=== PATIENT | female | born 1985 | race Caucasian/White ===

== ENCOUNTER 2017-01-09 09:30 | Emergency (ER) | payer MEDICARE ==
[2017-01-09 09:52] VITALS: PULSE 88; O2SAT 96
--- NOTE | 2017-01-09 10:26 | ERPHSYRPT ---
- History of Present Illness Time Seen by Provider: 01/09/17 10:17 Source: patient, family Exam Limitations: no limitations Patient Subjective Stated Complaint: DEVELOPED RED RAISED AREA UNDER LEFT ARM THREE DAYS AGO. NOW HAVING A FEVER AND PAIN WITH IT. ALSO HAVING VOMITING THIS AM. Triage Nursing Assessment: AMBULATED TO ROOM PER SELF WITHOUT DIFFICULTY. SKIN W/D, COLOR NORMAL. HAS 4-5CM RED RAISED AREA TO LEFT AXILLA. PATIENT UNABLE TO LIFT ARM COMPLETELY DUE TO PAIN. PATIENT CRYING AT TIMES. Physician History: The patient is a 32-year-old female with her complaining of pain and swelling under her left armpit that began 3 days ago. She had a fever yesterday of 102. She is also beginning to vomit. She vomited one chest today and multiple times this morning. She has a past medical history of sarcoidosis , type 1 diabetes, asthma, hepatitis, cholecystectomy, and hysterectomy. Timing/Duration: day(s) (3) Severity: severe Modifying Factors: Improves With: movement Associated Symptoms: nausea, vomiting, fever Allergies/Adverse Reactions: morphine Allergy (Intermediate, Verified 01/09/17 09:46) Stomach Pain meperidine HCl [From Demerol] Allergy (Mild, Verified 01/09/17 09:46) Hives Penicillins Allergy (Mild, Verified 01/09/17 09:46) Rash propoxyphene napsylate [From Darvocet-N 100] Allergy (Mild, Verified 01/09/17 09 :46) Hives diphenhydramine [From Benadryl] Allergy (Verified 01/09/17 09:46) levofloxacin [From Levaquin] Allergy (Verified 01/09/17 09:46) IMMUNE TO IT ondansetron HCl [From Zofran] Adverse Reaction (Intermediate, Verified 01/09/17 09:46) Nausea and Vomiting sulfamethoxazole [From Bactrim] Adverse Reaction (Verified 01/09/17 09:46) trimethoprim [From Bactrim] Adverse Reaction (Verified 01/09/17 09:46) Home Medications: Promethazine HCl 25 mg PO Q6HPRN PRN 03/22/14 [History] Subcutaneous Insulin Pump [Insulin Pump] 1 each MC UD 03/22/14 [History] Pregabalin [Lyrica 100Mg] 100 mg PO HS 12/23/15 [History] Atorvastatin Calcium [Lipitor] 80 mg PO DAILY 01/09/17 [History] Diltiazem HCl [Cartia Xt] 240 mg PO DAILY 01/09/17 [History] Metoprolol Tartrate 37.5 mg PO BID 01/09/17 [History] Ticagrelor [Brilinta] 90 mg PO BID 01/09/17 [History] Hx Tetanus, Diphtheria Vaccination/Date Given: Yes Hx Influenza Vaccination/Date Given: No Hx Pneumococcal Vaccination/Date Given: No - Review of Systems Constitutional: Fever Eyes: No Symptoms Ears, Nose, & Throat: No Symptoms Respiratory: No Symptoms Cardiac: No Chest Pain, No Edema, No Syncope Abdominal/Gastrointestinal: Nausea, Vomiting Genitourinary Symptoms: No Dysuria Musculoskeletal: No Back Pain, No Neck Pain Skin: Rash, Other (abscess under left arm pit) Neurological: No Dizziness, No Focal Weakness, No Sensory Changes Psychological: No Symptoms Endocrine: No Symptoms Hematologic/Lymphatic: No Symptoms Immunological/Allergic: No Symptoms All Other Systems: Reviewed and Negative - Past Medical History Pertinent Past Medical History: Yes Neurological History: No Pertinent History ENT History: No Pertinent History Cardiac History: Congestive Heart Failure, Myocardial Infarction ([place]) Respiratory History: CHF, Pulmonary Embolism, Other Endocrine Medical History: No Pertinent History Musculoskeletal History: No Pertinent History GI Medical History: No Pertinent History History: No Pertinent History Psycho-Social History: No Pertinent History Female Reproductive Disorders: No Pertinent History Other Medical History: Sarcoidosis - Past Surgical History Past Surgical History: Yes Neuro Surgical History: No Pertinent History Cardiac: Cardiac Catheterization Respiratory: Other Gastrointestinal: Cholecystectomy, Other Genitourinary: No Pertinent History Musculoskeletal: No Pertinent History Female Surgical History: Hysterectomy, Section Other Surgical History: LYMP NODE AND LUNG BIOPSY,PORT, liver biopsy, R TUBE REMOVED,insulin pump - Social History Smoking Status: Current every day smoker How long have you smoked: 1 Exposure to second hand smoke: No Alcohol Use: None Drug Use: none Patient Lives Alone: No Significant Family History: no pertinent family hx - Female History Hx Now: No - Nursing Vital Signs Nursing Vital Signs: Initial Vital Signs Temperature 98.5 F Temperature Source Oral Pulse Rate 88 Respiratory Rate 18 Blood Pressure [Right Arm] 106/56 Pain Intensity 4 - Physical Exam General Appearance: moderate distress Eye Exam: PERRL/EOMI, eyes nml inspection Ears, Nose, Throat Exam: normal ENT inspection, TMs normal, pharynx normal, moist mucous membranes Neck Exam: normal inspection, non-tender, supple, full range of motion Respiratory Exam: normal breath sounds, lungs clear, No respiratory distress Cardiovascular Exam: regular rate/rhythm, normal heart sounds, normal peripheral pulses Gastrointestinal/Abdomen Exam: tenderness Pelvic Exam: not done Rectal Exam: not done Back Exam: normal inspection, normal range of motion, No CVA tenderness, No vertebral tenderness Extremity Exam: normal inspection, normal range of motion, pelvis stable Neurologic Exam: alert, oriented x 3, cooperative, normal mood/affect, nml cerebellar function, nml station & gait, sensation nml, No motor deficits Skin Exam: rash, other (Examination of the left axilla reveals multiple abscesses, swelling, redness, and tenderness.) Lymphatic Exam: No adenopathy SpO2 Interpretation: normal SpO2: 96 Oxygen Delivery: Room Air Ordered Tests: Active Orders 24 hr Category Date Time Status IV Insertion STAT Care 01/09/17 11:02 Active OBSTR/ACUTE ABDOMEN SERIES Stat Exams 01/09/17 10:31 Taken CBC W DIFF Stat Lab 01/09/17 10:57 Completed CMP Stat Lab 01/09/17 10:57 Completed Lactic Acid Stat Lab 01/09/17 10:50 Completed UA W/RFX UR CULTURE Stat Lab 01/09/17 10:31 Completed Medication Summary Generic Name Dose Route Start Last Admin Trade Name Freq PRN Reason Stop Dose Admin Hydromorphone HCl 1 mg 01/09/17 14:57 Hydromorphone 1 Mg/Ml Ampule IV 01/09/17 14:58 STAT ONE Discontinued Medications Generic Name Dose Route Start Last Admin Trade Name Freq PRN Reason Stop Dose Admin Hydromorphone HCl 1 mg 01/09/17 10:31 01/09/17 10:56 Hydromorphone 1 Mg/Ml Ampule IV 01/09/17 10:32 1 mg STAT ONE Administration Hydromorphone HCl Confirm 01/09/17 10:51 Hydromorphone 1 Mg/Ml Ampule Administered 01/09/17 10:52 Dose 1 mg .ROUTE .STK-MED ONE Hydromorphone HCl 1 mg 01/09/17 12:56 01/09/17 13:26 Hydromorphone 1 Mg/Ml Ampule IV 01/09/17 12:57 1 mg STAT ONE Administration Hydromorphone HCl Confirm 01/09/17 13:21 Hydromorphone 1 Mg/Ml Ampule Administered 01/09/17 13:22 Dose 1 mg .ROUTE .STK-MED ONE Sodium Chloride 1,000 mls @ 999 mls/hr 01/09/17 10:31 01/09/17 10:56 Sodium Chloride 0.9% 1000 Ml IV 01/09/17 11:31 999 mls/hr .Q1H1M STA Administration Sodium Chloride Confirm 01/09/17 10:51 Sodium Chloride 0.9% 1000 Ml Administered 01/09/17 10:52 Dose 1,000 mls @ ud .ROUTE .STK-MED ONE Ceftriaxone Sodium/Dextrose 1 g in 50 mls @ 100 mls/hr 01/09/17 12:56 13:25 Rocephin 1 Gm-D5w 50 Ml Bag IV 01/09/17 13:25 100 mls/hr STAT ONE Administration Ceftriaxone Sodium/Dextrose Confirm 01/09/17 13:21 Rocephin 1 Gm-D5w 50 Ml Bag Administered 01/09/17 13:22 Dose 1 g in 50 mls @ ud IV .STK-MED ONE Lidocaine HCl 10 ml 01/09/17 14:26 01/09/17 14:46 Xylocaine 1% Hcl 20 Ml Mdv IJ 01/09/17 14:27 10 ml STAT ONE Administration Lidocaine HCl Confirm 01/09/17 14:29 Xylocaine 1% Hcl 20 Ml Mdv Administered 01/09/17 14:30 Dose 1 ml .ROUTE .STK-MED ONE Promethazine HCl 12.5 mg 01/09/17 10:31 01/09/17 10:56 Phenergan 25 Mg Inj IV 01/09/17 10:32 12.5 mg STAT ONE Administration Promethazine HCl Confirm 01/09/17 10:51 Phenergan 25 Mg Inj Administered 01/09/17 10:52 Dose 25 mg .ROUTE .STK-MED ONE Lab/Rad Data: Laboratory Result Diagrams 01/09/17 10:57 01/09/17 10:57 Laboratory Results 01/09/17 01/09/17 01/09/17 Range/Units 10:57 10:57 10:50 WBC 9.4 (4.0-10.5) K/mm3 RBC 4.51 (4.1-5.4) M/mm3 Hgb 12.8 (12.0-16.0) gm/dl Hct 38.6 (35-47) % MCV 85.6 (78-100) fl MCH 28.4 (26-32) pg MCHC 33.2 (32-36) g/dl RDW 13.1 (11.5-14.0) % Plt Count 238 (150-450) K/mm3 MPV 11.5 H (6-9.5) fl Gran % 63.1 (36.0-66.0) % Lymphocytes % 25.9 (24.0-44.0) % Monocytes % 8.6 (0.0-12.0) % Eosinophils % 2.2 (0.00-5.0) % Basophils % 0.2 (0.0-0.4) % Basophils # 0.02 (0-0.4) Sodium 141 (136-145) mEq/L Potassium 3.7 (3.5-5.1) mEq/L Chloride 105 (98-107) mEq/L Carbon Dioxide 28.0 (21-32) mEq/L Anion Gap 11.5 (5-15) MEQ/L BUN 12 (9-20) mg/dL Creatinine 0.98 (0.55-1.30) mg/dl Estimated GFR > 60 ML/MIN Glucose 223 H (70-110) MG/DL Lactic Acid 1.0 (0.4-2.0) Calcium 9.1 (8.5-10.1) mg/dL Total Bilirubin 0.50 (0.2-1.0) mg/dL AST 42 H (15-37) U/L ALT 77 (12-78) U/L Alkaline Phosphatase 221 H (46-116) U/L Serum Total Protein 6.9 (6.4-8.2) gm/dL Albumin 3.1 L (3.4-5.0) g/dL Ur Collection Type Urine Color (YELLOW) Urine Appearance (CLEAR) Urine pH (5-6) Ur Specific [place] (1.005-1.025) Urine Protein (Negative) Urine Glucose (UA) (NEGATIVE) mg/dL Urine Ketones (NEGATIVE) Urine Nitrite (NEGATIVE) Urine Bilirubin (NEGATIVE) Urine Urobilinogen (0-1) mg/dL Urine WBC (Auto) (NEGATIVE) Urine RBC (Auto) (0-5) Zain/ul Specimen Received 01/09/17 Range/Units 10:31 WBC (4.0-10.5) K/mm3 RBC (4.1-5.4) M/mm3 Hgb (12.0-16.0) gm/dl Hct (35-47) % MCV (78-100) fl MCH (26-32) pg MCHC (32-36) g/dl RDW (11.5-14.0) % Plt Count (150-450) K/mm3 MPV (6-9.5) fl Gran % (36.0-66.0) % Lymphocytes % (24.0-44.0) % Monocytes % (0.0-12.0) % Eosinophils % (0.00-5.0) % Basophils % (0.0-0.4) % Basophils # (0-0.4) Sodium (136-145) mEq/L Potassium (3.5-5.1) mEq/L Chloride (98-107) mEq/L Carbon Dioxide (21-32) mEq/L Anion Gap (5-15) MEQ/L BUN (9-20) mg/dL Creatinine (0.55-1.30) mg/dl Estimated GFR ML/MIN Glucose (70-110) MG/DL Lactic Acid (0.4-2.0) Calcium (8.5-10.1) mg/dL Total Bilirubin (0.2-1.0) mg/dL AST (15-37) U/L ALT (12-78) U/L Alkaline Phosphatase (46-116) U/L Serum Total Protein (6.4-8.2) gm/dL Albumin (3.4-5.0) g/dL Ur Collection Type CLEAN CATCH Urine Color YELLOW (YELLOW) Urine Appearance CLEAR (CLEAR) Urine pH 5.5 (5-6) Ur Specific [place] 1.025 (1.005-1.025) Urine Protein NEGATIVE (Negative) Urine Glucose (UA) 500 (NEGATIVE) mg/dL Urine Ketones SMALL-15 (NEGATIVE) Urine Nitrite NEGATIVE (NEGATIVE) Urine Bilirubin SMALL (NEGATIVE) Urine Urobilinogen 1 (0-1) mg/dL Urine WBC (Auto) NEGATIVE (NEGATIVE) Urine RBC (Auto) NEGATIVE (0-5) Zain/ul Specimen Received 0527 1030 - Progress Progress: improved Progress Note: 01/09/17 12:55 The patient was given Phenergan 25 mg and Dilaudid 1 mg by IV and is now feeling better. I discussed the possibility of incision and drainage of her abscess in her left armpit. The patient would like it drained today. We will start her also on Rocephin in the ER. 01/09/17 14:58 An attempt was made to incise and drain the abscess. The axilla was swabbed with Betadine and then 10 mL of lidocaine injected into the area. An 11 blade scalpel was used for incision. Minimal amounts of purulent material were expressed and cultured. The wound was very indurated. No pocket of purulent material was identified. The patient tolerated the procedure well. Patient was given another 1 mg of Dilaudid IV. This totals 3 mg of Dilaudid IV while the patient has been in the ER. Counseled pt/family regarding: lab results, diagnosis - Departure Time of Disposition: 15:00 Departure Disposition: Home Clinical Impression: Hidradenitis suppurativa Condition: Stable Critical Care Time: No Additional Instructions: You have a bacterial infection in the tissues of your left arm pit. You were given Dilaudid 1 mg by IV 3 times in the ER as well as Rocephin 1 g by IV. A wound culture was obtained from the material expressed from the incision and drainage. You may take the oxycodone you have at home and use as directed. Take doxycycline 100 mg twice a day for 10 days and prednisone 60 mg a day for 5 days. Follow up next week. Prescriptions: Doxycycline Hyclate [Vibramycin] 1 cap PO BID #20 capsule Prednisone 10 mg [Deltasone 10 mg] 60 mg PO UD #30 tablet
[2017-01-09] MEDS ORDERED: Sodium Chloride 0.9% 1000 ML 1,000 ML IV STA (10:31)
[2017-01-09] MEDS ORDERED: Hydromorphone 1 mg/ml Ampule IV ONE ×3 (10:31→14:57)
[2017-01-09] MEDS ORDERED: Phenergan 25 MG INJ IV ONE (10:31)
[2017-01-09] MEDS ORDERED: Sodium Chloride 0.9% 1000 ML 1,000 ML ONE (10:51)
[2017-01-09] MEDS ORDERED: Phenergan 25 MG INJ ONE (10:51)
[2017-01-09] MEDS ORDERED: Hydromorphone 1 mg/ml Ampule ONE ×3 (10:51→15:01)
[2017-01-09 11:09] LABS: ADD URINE CULTURE? NO (NO); COMPLETE URINE MICROSCOPIC? NO; Collection Type CLEAN CATCH; Ph 5.5 (5-6)
[2017-01-09 11:17] LABS: BASOPHIL % 0.2 % (0.0-0.4); Eosinophil % 2.2 % (0.00-5.0); Granulocytes % 63.1 % (36.0-66.0); Lymphocytes % 25.9 % (24.0-44.0); Mean Cell Volume 85.6 fl (78-100); Mean Corpuscular Hemoglobin 28.4 pg (26-32); Mean Platelet Volume 11.5 fl (6-9.5); Monocytes % 8.6 % (0.0-12.0); Platelet Count 238 K/mm3 (150-450); Red Blood Count 4.51 M/mm3 (4.1-5.4); Red Cell Distribution Width 13.1 % (11.5-14.0); White Blood Count 9.4 K/mm3 (4.0-10.5)
[2017-01-09 11:57] LABS: ALBUMIN 3.1 g/dL (3.4-5.0); ALKALINE PHOSPHATASE 221 U/L (46-116); ANION GAP 11.5 MEQ/L (5-15); BLOOD UREA NITROGEN 12 mg/dL (9-20); CHLORIDE 105 mEq/L (98-107); Glucose 223 MG/DL (70-110); Potassium 3.7 mEq/L (3.5-5.1); SGOT/AST 42 U/L (15-37); SGPT/ALT 77 U/L (12-78); SODIUM 141 mEq/L (136-145); Total Protein 6.9 gm/dL (6.4-8.2)
[2017-01-09] MEDS ORDERED: ROCEPHIN 1 Gm-D5w 50 ml Bag** 1 G/50 ML IVPB IV ONE ×2 (12:56→13:21)
[2017-01-09] MEDS ORDERED: XYLOCAINE 1% HCL 20 ML MDV IJ ONE (14:26)
[2017-01-09] MEDS ORDERED: XYLOCAINE 1% HCL 20 ML MDV ONE (14:29)
[2017-01-09 15:09] VITALS: BP 98/52
--- NOTE | 2017-01-09 20:55 | XRAY ---
Indication: Pain. Comparison: Chest July 25, 2016. 2 views of the abdomen demonstrates moderate diffuse scattered colonic fecal debris without obstruction and scattered surgical clips. Remaining solid organs and osseous structures unremarkable. Single frontal chest again demonstrate normal heart, lungs, and bony thorax with left-sided Port-A-Cath. Impression: Fecal stasis without obstruction. Stable nonacute 1 view chest.
== END 2017-01-09 15:09 | disposition home or self-care (01) ==
LOC: ED 09:30
PROC: 0H9CXZZ Drainage of Left Upper Arm Skin, External Approach (ICD-10-PCS; principal; 2017-01-09)
DX: L73.2 Hidradenitis suppurativa (principal)
CPT/HCPCS: 10060; 36000; 36415; 74022; 80053; 81002; 83605; 85025; 87070; 87077; 87186; 96360; 96361; 96365; 96374; 96375; 96376; 99284; J0696; J1170; J1642; J2550

== ENCOUNTER 2017-04-20 22:02 | Observation (INO) | payer MEDICARE ==
[2017-04-20] MEDS ORDERED: Sodium Chloride 0.9% 1000 ML 1,000 ML IV STA (23:06)
--- NOTE | 2017-04-20 23:09 | ERPHSYRPT ---
- History of Present Illness Time Seen by Provider: 04/20/17 22:59 Source: patient Exam Limitations: no limitations Patient Subjective Stated Complaint: "my pump started malfunctioning tonight. i kept trying to get it to work. i tried to change everything out, but it started beeping again. my blood sugar was over [address]. [address] Jefferson and she told me to come to the ED and she would admit me." Triage Nursing Assessment: aox3, breathing easy unlabored, skin pink warm dry, steady gait, BS 518 Physician History: PT'S INSULIN PUMP MALFUNCTIONED TONIGHT ABOUT 4.5 HOURS AGO AND SINCE PT HAS HAD UPPER ANTERIOR CHEST PAIN WITH VOMITING X1. PT DENIES SHORTNESS OF AIR, FEVER, ABDOMINAL PAIN. Allergies/Adverse Reactions: morphine Allergy (Intermediate, Verified 04/20/17 22:35) Stomach Pain meperidine HCl [From Demerol] Allergy (Mild, Verified 04/20/17 22:35) Hives Penicillins Allergy (Mild, Verified 04/20/17 22:35) Rash propoxyphene napsylate [From Darvocet-N 100] Allergy (Mild, Verified 04/20/17 22 :35) Hives diphenhydramine [From Benadryl] Allergy (Verified 04/20/17 22:35) levofloxacin [From Levaquin] Allergy (Verified 04/20/17 22:35) IMMUNE TO IT ondansetron HCl [From Zofran] Adverse Reaction (Intermediate, Verified 04/20/17 22:35) Nausea and Vomiting sulfamethoxazole [From Bactrim] Adverse Reaction (Verified 04/20/17 22:35) trimethoprim [From Bactrim] Adverse Reaction (Verified 04/20/17 22:35) Home Medications: Promethazine HCl 25 mg PO Q6HPRN PRN 03/22/14 [History] Subcutaneous Insulin Pump [Insulin Pump] 1 each MC UD 03/22/14 [History] Pregabalin [Lyrica 100Mg] 100 mg PO HS 12/23/15 [History] Atorvastatin Calcium [Lipitor] 80 mg PO DAILY 01/09/17 [History] Diltiazem HCl [Cartia Xt] 240 mg PO DAILY 01/09/17 [History] Metoprolol Tartrate 37.5 mg PO BID 01/09/17 [History] Ticagrelor [Brilinta] 90 mg PO BID 01/09/17 [History] Hx Tetanus, Diphtheria Vaccination/Date Given: Yes Hx Influenza Vaccination/Date Given: No Hx Pneumococcal Vaccination/Date Given: No - Review of Systems Cardiac: Chest Pain Abdominal/Gastrointestinal: Vomiting All Other Systems: Reviewed and Negative - Past Medical History Pertinent Past Medical History: Yes Neurological History: No Pertinent History ENT History: No Pertinent History Cardiac History: Congestive Heart Failure, Myocardial Infarction ([place]) Respiratory History: CHF, Pulmonary Embolism, Other Endocrine Medical History: Diabetes Type I Musculoskeletal History: No Pertinent History GI Medical History: No Pertinent History History: No Pertinent History Psycho-Social History: No Pertinent History Female Reproductive Disorders: No Pertinent History Other Medical History: Sarcoidosis - Past Surgical History Past Surgical History: Yes Neuro Surgical History: No Pertinent History Cardiac: Cardiac Catheterization Respiratory: Other Gastrointestinal: Cholecystectomy, Other Genitourinary: No Pertinent History Musculoskeletal: No Pertinent History Female Surgical History: Hysterectomy, Section Other Surgical History: LYMP NODE AND LUNG BIOPSY,PORT, liver biopsy, R TUBE REMOVED,insulin pump, hysterecomy - Social History Smoking Status: Former smoker How long have you smoked: 1 Exposure to second hand smoke: No Alcohol Use: None Drug Use: none Patient Lives Alone: No Significant Family History: no pertinent family hx - Female History Hx Last Menstrual Period: hyster Hx Now: No - Nursing Vital Signs Nursing Vital Signs: Initial Vital Signs Temperature 97.7 F 04/20/17 22:28 Pulse Rate 88 04/20/17 22:28 Respiratory Rate 14 04/20/17 22:28 Blood Pressure 118/82 04/20/17 22:28 O2 Sat by Pulse Oximetry 97 04/20/17 22:28 Pain Scale Pain Intensity 6 - Physical Exam General Appearance: alert Eye Exam: PERRL/EOMI Ears, Nose, Throat Exam: pharynx normal, moist mucous membranes Neck Exam: normal inspection Respiratory Exam: lungs clear Cardiovascular Exam: normal heart sounds Gastrointestinal/Abdomen Exam: soft, normal bowel sounds Back Exam: normal range of motion Extremity Exam: normal inspection, No pedal edema Neurologic Exam: alert, cooperative Skin Exam: warm, dry SpO2 Interpretation: normal SpO2: 97 Oxygen Delivery: Room Air - Course Nursing assessment & vital signs reviewed: Yes EKG Interpreted by Me: RATE (91), Sinus Rhythm, NORMAL AXIS, NORMAL INTERVALS - Radiology Exams Chest X-ray Interpretation: Interpreted by me, No Pneumonia Ordered Tests: Active Orders 24 hr Category Date Time Status ACCUCHECK [Accucheck] STAT Care 04/20/17 23:[address] Administrative Engineer STAT Care 04/20/17 23:08 Active EKG-ER Only STAT Care 04/20/17 23:07 Active IV Insertion STAT Care 04/20/17 23:06 Active CHEST 1 VIEW (PORTABLE) Stat Exams 04/20/17 23:08 Taken AMYLASE Stat Lab 04/20/17 23:25 Completed CBC W DIFF Stat Lab 04/20/17 23:25 Completed CMP Stat Lab 04/20/17 23:25 Completed HCG QUALITATIVE,SERUM Stat Lab 04/20/17 23:25 Completed LIPASE Stat Lab 04/20/17 23:25 Completed MAGNESIUM Stat Lab 04/20/17 23:25 Completed TROPONIN Q3H Lab 04/20/17 23:25 Completed TROPONIN Q3H Lab 04/21/17 02:15 Ordered TROPONIN Q3H Lab 04/21/17 05:15 Ordered TROPONIN Q3H Lab 04/21/17 08:15 Ordered TROPONIN Q3H Lab 04/21/17 11:15 Ordered UA W/RFX UR CULTURE Stat Lab 04/20/17 23:20 Completed Medication Summary Discontinued Medications Generic Name Dose Route Start Last Admin Trade Name Freq PRN Reason Stop Dose Admin Hydromorphone HCl 1 mg 04/20/17 23:49 04/21/17 00:00 Hydromorphone 1 Mg/Ml Ampule IV 04/20/17 23:50 1 mg STAT ONE Administration Hydromorphone HCl Confirm 04/20/17 23:55 Hydromorphone 1 Mg/Ml Ampule Administered 04/20/17 23:56 Dose 1 mg .ROUTE .STK-MED ONE Sodium Chloride 1,000 mls @ 999 mls/hr 04/20/17 23:06 04/20/17 23:30 Sodium Chloride 0.9% 1000 Ml IV 04/21/17 00:06 999 mls/hr .Q1H1M STA Administration Sodium Chloride Confirm 04/20/17 23:29 Sodium Chloride 0.9% 1000 Ml Administered 04/20/17 23:30 Dose 1,000 mls @ ud .ROUTE .STK-MED ONE Insulin Human Regular 10 unit 04/21/17 00:47 04/21/17 00:55 Novolin R IV 04/21/17 00:48 10 unit STAT ONE Administration Insulin Human Regular Confirm 04/21/17 00:52 Novolin R Administered 04/21/17 00:53 Dose 1 unit .ROUTE .STK-MED ONE Insulin Human Regular Confirm 04/21/17 00:54 Novolin R Administered 04/21/17 00:55 Dose 1 unit .ROUTE .STK-MED ONE Promethazine HCl 12.5 mg 04/20/17 23:49 04/21/17 00:00 Phenergan 25 Mg Inj IV 04/20/17 23:50 12.5 mg STAT ONE Administration Promethazine HCl Confirm 04/20/17 23:55 Phenergan 25 Mg Inj Administered 04/20/17 23:56 Dose 25 mg .ROUTE .STK-MED ONE Lab/Rad Data: Laboratory Result Diagrams 04/20/17 23:25 04/20/17 23:25 Laboratory Results 04/20/17 04/20/17 04/20/17 Range/Units 23:25 23:25 23:25 WBC (4.0-10.5) K/mm3 RBC (4.1-5.4) M/mm3 Hgb (12.0-16.0) gm/dl Hct (35-47) % MCV (78-100) fl MCH (26-32) pg MCHC (32-36) g/dl RDW (11.5-14.0) % Plt Count (150-450) K/mm3 MPV (6-9.5) fl Gran % (36.0-66.0) % Lymphocytes % (24.0-44.0) % Monocytes % (0.0-12.0) % Eosinophils % (0.00-5.0) % Basophils % (0.0-0.4) % Basophils # (0-0.4) Sodium (136-145) mEq/L Potassium (3.5-5.1) mEq/L Chloride (98-107) mEq/L Carbon Dioxide (21-32) mEq/L Anion Gap (5-15) MEQ/L BUN (9-20) mg/dL Creatinine (0.55-1.30) mg/dl Estimated GFR ML/MIN Glucose (70-110) MG/DL Calcium (8.5-10.1) mg/dL Magnesium (1.8-2.4) mg/dL Total Bilirubin (0.2-1.0) mg/dL AST (15-37) U/L ALT (12-78) U/L Alkaline Phosphatase (46-116) U/L Troponin I < 0.017 (0.000-0.056) ng/ml Serum Total Protein (6.4-8.2) gm/dL Albumin (3.4-5.0) g/dL Amylase 26 (25-115) U/L Lipase 110 (73-393) U/L Serum , Qual NEGATIVE (Negative) Ur Collection Type Urine Color (YELLOW) Urine Appearance (CLEAR) Urine pH (5-6) Ur Specific [place] (1.005-1.025) Urine Protein (Negative) Urine Ketones (NEGATIVE) Urine Blood (0-5) Zain/ul Urine Nitrite (NEGATIVE) Urine Bilirubin (NEGATIVE) Urine Urobilinogen (0-1) mg/dL Ur Leukocyte Esterase (NEGATIVE) Urine Glucose (NEGATIVE) mg/dL Specimen Received 04/20/17 04/20/17 04/20/17 Range/Units 23:25 23:25 23:20 WBC 11.8 H (4.0-10.5) K/mm3 RBC 4.29 (4.1-5.4) M/mm3 Hgb 12.3 (12.0-16.0) gm/dl Hct 37.1 (35-47) % MCV 86.5 (78-100) fl MCH 28.7 (26-32) pg MCHC 33.2 (32-36) g/dl RDW 13.2 (11.5-14.0) % Plt Count 249 (150-450) K/mm3 MPV 11.5 H (6-9.5) fl Gran % 63.6 (36.0-66.0) % Lymphocytes % 26.5 (24.0-44.0) % Monocytes % 6.4 (0.0-12.0) % Eosinophils % 3.2 (0.00-5.0) % Basophils % 0.3 (0.0-0.4) % Basophils # 0.04 (0-0.4) Sodium 133 L (136-145) mEq/L Potassium 4.4 (3.5-5.1) mEq/L Chloride 97 L (98-107) mEq/L Carbon Dioxide 26.2 (21-32) mEq/L Anion Gap 14.6 (5-15) MEQ/L BUN 17 (9-20) mg/dL Creatinine 0.96 (0.55-1.30) mg/dl Estimated GFR > 60 ML/MIN Glucose 567 H* (70-110) MG/DL Calcium 9.2 (8.5-10.1) mg/dL Magnesium 1.7 L (1.8-2.4) mg/dL Total Bilirubin 0.80 (0.2-1.0) mg/dL AST 37 (15-37) U/L ALT 113 H (12-78) U/L Alkaline Phosphatase 239 H (46-116) U/L Troponin I (0.000-0.056) ng/ml Serum Total Protein 7.0 (6.4-8.2) gm/dL Albumin 3.3 L (3.4-5.0) g/dL Amylase (25-115) U/L Lipase (73-393) U/L Serum , Qual (Negative) Ur Collection Type CLEAN CATCH Urine Color LT.YELLOW (YELLOW) Urine Appearance CLEAR (CLEAR) Urine pH 5.5 (5-6) Ur Specific [place] 1.010 (1.005-1.025) Urine Protein NEGATIVE (Negative) Urine Ketones LARGE (NEGATIVE) Urine Blood NEGATIVE (0-5) Zain/ul Urine Nitrite NEGATIVE (NEGATIVE) Urine Bilirubin NEGATIVE (NEGATIVE) Urine Urobilinogen NORMAL (0-1) mg/dL Ur Leukocyte Esterase NEGATIVE (NEGATIVE) Urine Glucose 1000 (NEGATIVE) mg/dL Specimen Received 04/20/17:2320 - Progress Discussed with : Abdias (OBS - [id number]) - Departure Time of Disposition: 01:02 Departure Disposition: Observation Clinical Impression: HYPERGLYCEMIA, HYPOMAGNESEMIA, VOMITING, CHEST PAIN Condition: Stable Critical Care Time: No Referrals: JENNYFER FANG MD [Primary Care Provider] -
[2017-04-20] MEDS ORDERED: Sodium Chloride 0.9% 1000 ML 1,000 ML ONE (23:29)
[2017-04-20 23:35] LABS: Collection Type CLEAN CATCH
[2017-04-20 23:35] LABS: BASOPHIL % 0.3 % (0.0-0.4); Eosinophil % 3.2 % (0.00-5.0); Granulocytes % 63.6 % (36.0-66.0); Lymphocytes % 26.5 % (24.0-44.0); Mean Cell Volume 86.5 fl (78-100); Mean Corpuscular Hemoglobin 28.7 pg (26-32); Mean Platelet Volume 11.5 fl (6-9.5); Monocytes % 6.4 % (0.0-12.0); Platelet Count 249 K/mm3 (150-450); Red Blood Count 4.29 M/mm3 (4.1-5.4); Red Cell Distribution Width 13.2 % (11.5-14.0); White Blood Count 11.8 K/mm3 (4.0-10.5)
[2017-04-20 23:36] LABS: ADD URINE CULTURE? NO (NO); Bilirubin NEGATIVE (NEGATIVE); Blood NEGATIVE Ery/ul (0-5); COMPLETE URINE MICROSCOPIC? NO; Glucose 1000 mg/dL (NEGATIVE); Leukocyte Esterase NEGATIVE (NEGATIVE)
[2017-04-20] MEDS ORDERED: Phenergan 25 MG INJ IV ONE (23:49)
[2017-04-20] MEDS ORDERED: Hydromorphone 1 mg/ml Ampule IV ONE (23:49)
[2017-04-20] MEDS ORDERED: Phenergan 25 MG INJ ONE (23:55)
[2017-04-20] MEDS ORDERED: Hydromorphone 1 mg/ml Ampule ONE (23:55)
[2017-04-21 00:01] LABS: LIPASE 110 U/L (73-393)
[2017-04-21 00:04] LABS: ALBUMIN 3.3 g/dL (3.4-5.0); ALKALINE PHOSPHATASE 239 U/L (46-116); ANION GAP 14.6 MEQ/L (5-15); BLOOD UREA NITROGEN 17 mg/dL (9-20); CHLORIDE 97 mEq/L (98-107); Carbon Dioxide 26.2 mEq/L (21-32); MAGNESIUM 1.7 mg/dL (1.8-2.4); Potassium 4.4 mEq/L (3.5-5.1); SGOT/AST 37 U/L (15-37); SGPT/ALT 113 U/L (12-78); SODIUM 133 mEq/L (136-145)
[2017-04-21 00:16] LABS: Glucose 567 MG/DL (70-110)
[2017-04-21] MEDS ORDERED: NovoLIN R IV ONE ×2 (00:47→01:57)
[2017-04-21] MEDS ORDERED: NovoLIN R ONE ×2 (00:52→00:54)
[2017-04-21] MEDS ORDERED: NovoLIN R SQ ONE (02:19)
[2017-04-21] MEDS ORDERED: TYLENOL 325 MG PO PRN (02:21)
[2017-04-21] MEDS ORDERED: Zofran 4 MG/2 ML VIAL IV PRN (02:21)
[2017-04-21] MEDS: Sodium Chloride 0.9% 1000 ML 1,000 ML IV SCH ×3 (02:55→23:06)
[2017-04-21] MEDS ORDERED: OXYCODONE-ACETAMINOPHEN 10-325 PO PRN ×2 (04:52→06:56)
[2017-04-21] MEDS: NovoLIN R IV PRN ×2 (05:08→08:03)
[2017-04-21 05:46] LABS: BASOPHIL % 0.3 % (0.0-0.4); Eosinophil % 4.1 % (0.00-5.0); Granulocytes % 56.2 % (36.0-66.0); Lymphocytes % 37.4 % (24.0-44.0); Mean Corpuscular Hemoglobin 28.4 pg (26-32); Mean Platelet Volume 11.6 fl (6-9.5); Platelet Count 231 K/mm3 (150-450); Red Blood Count 4.23 M/mm3 (4.1-5.4); Red Cell Distribution Width 13.3 % (11.5-14.0); White Blood Count 7.6 K/mm3 (4.0-10.5)
[2017-04-21 06:06] LABS: ALBUMIN 3.2 g/dL (3.4-5.0); ALKALINE PHOSPHATASE 223 U/L (46-116); ANION GAP 13.8 MEQ/L (5-15); BLOOD UREA NITROGEN 13 mg/dL (9-20); CHLORIDE 104 mEq/L (98-107); Carbon Dioxide 25.3 mEq/L (21-32); Glucose 362 MG/DL (70-110); MAGNESIUM 1.7 mg/dL (1.8-2.4); Potassium 3.5 mEq/L (3.5-5.1); SGOT/AST 27 U/L (15-37); SGPT/ALT 99 U/L (12-78); SODIUM 140 mEq/L (136-145); Total Protein 6.7 gm/dL (6.4-8.2)
--- NOTE | 2017-04-21 08:23 | XRAY ---
Exam: AP portable chest film from 2345 hrs. on 04/20/2017. Comparison: Frontal chest film from acute abdominal series dated 01/09/2017. Indication: Hyperglycemia, diabetes, chest pain. Findings: Left-sided angel catheter is seen with the catheter tip in the projection of the right atrium pointing inferiorly representing no change. The heart size and contour are normal. The yulissa and mediastinal structures appear unremarkable. Inflation of the lungs is average. No air space infiltrates, pulmonary vascular congestion, pneumothorax, or pleural fluid is seen. The visualized bones appear intact. Impression: 1. No acute cardiopulmonary disease is seen representing no change from 01/09/2017. 2. Left-sided angel catheter is in unchanged position as discussed above.
--- NOTE | 2017-04-21 09:00 | PCM.HP ---
History of Present Illness - Chief Complaint Chief Complaint: hyperglycemia d/t pump malfunction History of Present Illness: is a 32 year old female with type 1 diabetes, sarcoidosis and coronary artery disease. Last evening her insulin pump began to malfunction, within a few hours she developed pain in her chest, nausea and vomiting with elevated sugar. She has had DKA many times in the past so was concerned, she had no lantus or backup insulin or syringes/needles on hand so came to ER for evaluation. She still has some soreness and tightness in the anterior chest and complains of headache this morning. Her nausea and vomiting have resolved, she plans to call [facility] today to see if they will overnight ship a new pump to her. She also has a history of pulmonary embolism, is on Brilinta at home. Patient also notes a sore spot on her left lower back, right leg and under left arm, they are red, swollen and painful. - Review of Systems Constitutional: No Fever, No Chills Respiratory: No Cough, No Short Of Breath Cardiac: Chest Pain Abdominal/Gastrointestinal: Nausea, Vomiting, No Abdominal Pain, No Diarrhea, No Constipation, No Hematochezia Genitourinary Symptoms: No Dysuria Skin: No Rash Neurological: No Dizziness, No Focal Weakness, No Sensory Changes All Other Systems: Reviewed and Negative Medications & Allergies Home Medications: Home Medication List Promethazine HCl 25 mg PO Q6HPRN PRN 03/22/14 [History Confirmed 04/21/17] Subcutaneous Insulin Pump [Insulin Pump] 1 each MC UD 03/22/14 [History Confirmed 04/21/17] Desvenlafaxine Succinate [Pristiq] 100 mg PO HS #30 08/24/14 [Rx Confirmed 04/21] Pregabalin [Lyrica 100Mg] 100 mg PO HS 12/23/15 [History Confirmed 04/21/17] Zolpidem Tartrate [Ambien] 10 mg PO HS #30 tablet 03/13/16 [Rx Confirmed ] Oxycodone HCl/Acetaminophen [Percocet 10-325 mg Tablet] 1 tablet PO Q4H PRN PRN #180 tablet 04/28/16 [Rx Confirmed 04/21/17] Atorvastatin Calcium [Lipitor] 80 mg PO DAILY 01/09/17 [History Confirmed ] Diltiazem HCl [Cartia Xt] 240 mg PO HS 01/09/17 [History Confirmed 04/21/17] Metoprolol Tartrate 37.5 mg PO BID 01/09/17 [History Confirmed 04/21/17] Ticagrelor [Brilinta] 90 mg PO BID 01/09/17 [History Confirmed 04/21/17] Buspirone HCl 5 mg [Buspar 5 mg] 5 mg PO BID 04/21/17 [History Confirmed 04/21/17] Sumatriptan Succinate [Imitrex] 100 mg PO DAILY PRN PRN 04/21/17 [History Confirmed 04/21/17] Allergies/Adverse Reactions: Allergies Allergy/AdvReac Type Severity Reaction Status Date / Time morphine Allergy Intermediate Stomach Verified 04/20/17 22:35 Pain meperidine HCl [From Demerol] Allergy Mild Hives Verified 04/20/17 22:35 Penicillins Allergy Mild Rash Verified 04/20/17 22:35 propoxyphene napsylate Allergy Mild Hives Verified 04/20/17 22:35 [From Darvocet-N 100] levofloxacin [From Levaquin] Allergy IMMUNE TO Verified 04/20/17 22:35 IT ondansetron HCl [From Zofran] AdvReac Intermediate Nausea and Verified 04/20/17 22:35 Vomiting sulfamethoxazole AdvReac Verified 04/20/17 22:35 [From Bactrim] trimethoprim [From Bactrim] AdvReac Verified 04/20/17 22:35 - Past Medical History Past Medical History: Yes Neurological History: No Pertinent History ENT History: No Pertinent History Cardiac History: Congestive Heart Failure, Myocardial Infarction ([place]) Respiratory History: CHF, Pulmonary Embolism, Other Endocrine Medical History: Diabetes Type I Musculoskelatal History: No Pertinent History GI Medical History: No Pertinent History History: No Pertinent History Pyscho-Social History: No Pertinent History Reproductive Disorders: No Pertinent History Comment: Sarcoidosis, slipped disc - Female History Hx Last Menstrual Period: hyster Are you now?: No - Past Surgical History Past Surgical History: Yes Neuro Surgical History: No Pertinent History Cardiac History: Cardiac Catheterization Respiratory Surgery: Other GI Surgical History: Cholecystectomy, Other Genitourinary Surgical Hx: No Pertinent History Musculskeletal Surgical Hx: No Pertinent History Female Surgical History: Hysterectomy, Section Other Surgical History: LYMP NODE AND LUNG BIOPSY,PORT, liver biopsy, R TUBE REMOVED, - Social History Smoking Status: Former smoker How long have you smoked: 1 Exposure to second hand smoke: No Alcohol: None Drug Use: none Significant Family History: no pertinent family hx - Physical Exam Vital Signs: Vital Signs - 24 hr Temp Pulse Resp BP Pulse Ox 04/21/17 07:07 97.6 F 78 18 90/52 98 04/21/17 03:55 79 18 96 04/21/17 03:26 97.7 F 78 12 96/56 96 04/21/17 01:58 78 12 96/56 96 04/21/17 01:02 97 04/21/17 00:59 75 14 111/62 97 04/21/17 00:14 86 20 116/78 98 04/20/17 22:28 97.7 F 88 14 118/82 97 General Appearance: no apparent distress, alert Neurologic Exam: alert, oriented x 3, cooperative, normal mood/affect, nml cerebellar function, nml station & gait, sensation nml, No motor deficits Eye Exam: PERRL/EOMI, eyes nml inspection Neck Exam: normal inspection, non-tender, supple, full range of motion Respiratory Exam: normal breath sounds, lungs clear, No respiratory distress Gastrointestinal/Abdomen Exam: soft, normal bowel sounds, No tenderness, No mass Extremity Exam: normal inspection, normal range of motion, pelvis stable Skin Exam: normal color, warm, dry, No rash Results - Labs Lab/Micro Results: Accuchecks Date 04/21/17 Date 04/21/17 Date 04/21/17 Time 06:08 Time 04:30 Time 03:00 Accucheck Value: 280 Accucheck Value: 274 Accucheck Value: 359 Accucheck Value: 313 Lab Results-Last 24 Hours 04/21/17 04/21/17 04/21/17 Range/Units 05:30 05:30 05:30 WBC 7.6 (4.0-10.5) K/mm3 RBC 4.23 (4.1-5.4) M/mm3 Hgb 12.0 (12.0-16.0) gm/dl Hct 36.8 (35-47) % MCV 87.0 (78-100) fl MCH 28.4 (26-32) pg MCHC 32.6 (32-36) g/dl RDW 13.3 (11.5-14.0) % Plt Count 231 (150-450) K/mm3 MPV 11.6 H (6-9.5) fl Gran % 56.2 (36.0-66.0) % Lymphocytes % 37.4 (24.0-44.0) % Monocytes % 2.0 (0.0-12.0) % Eosinophils % 4.1 (0.00-5.0) % Basophils % 0.3 (0.0-0.4) % Basophils # 0.02 (0-0.4) Sodium 140 (136-145) mEq/L Potassium 3.5 (3.5-5.1) mEq/L Chloride 104 (98-107) mEq/L Carbon Dioxide 25.3 (21-32) mEq/L Anion Gap 13.8 (5-15) MEQ/L BUN 13 (9-20) mg/dL Creatinine 0.83 (0.55-1.30) mg/dl Estimated GFR > 60 ML/MIN Glucose 362 H (70-110) MG/DL Calcium 9.0 (8.5-10.1) mg/dL Magnesium 1.7 L (1.8-2.4) mg/dL Total Bilirubin 0.60 (0.2-1.0) mg/dL AST 27 (15-37) U/L ALT 99 H (12-78) U/L Alkaline Phosphatase 223 H (46-116) U/L Troponin I < 0.017 (0.000-0.056) ng/ml Serum Total Protein 6.7 (6.4-8.2) gm/dL Albumin 3.2 L (3.4-5.0) g/dL Accuchecks Date 04/21/17 Date 04/21/17 Date 04/21/17 Time 06:08 Time 04:30 Time 03:00 Accucheck Value: 280 Accucheck Value: 274 Accucheck Value: 359 Accucheck Value: 313 Assessment/Plan (1) Chest pain Current Visit: Yes Status: Acute Assessment & Plan: will r/o [place], patient states when sugars are high she develops muscle pain in her chest and neck but with her history [place] needs ruled out. seems noncardiac at this time Code(s): R07.9 - CHEST PAIN, UNSPECIFIED (2) Hyperglycemia due to type 1 diabetes mellitus Current Visit: Yes Status: Acute Code(s): E10.65 - TYPE 1 DIABETES MELLITUS WITH HYPERGLYCEMIA (3) Vomiting Current Visit: Yes Status: Acute Assessment & Plan: will start SQ Lantus and cover with sliding scale insulin for now until her pump can be replaced Code(s): R11.10 - VOMITING, UNSPECIFIED (4) Sarcoidosis Current Visit: No Status: Chronic Code(s): D86.9 - SARCOIDOSIS, UNSPECIFIED (5) Folliculitis Current Visit: Yes Status: Acute Assessment & Plan: add doxycycline 100mg bid Code(s): L73.9 - FOLLICULAR DISORDER, UNSPECIFIED
[2017-04-21] MEDS ORDERED: NovoLOG Insulin SQ PRN (09:02)
[2017-04-21] MEDS ORDERED: NON-FORMULARY ITEM (Sumatriptan Succinate [Imitrex] 100 MG) PO PRN (09:47)
[2017-04-21] MEDS ORDERED: PROMETHAZINE HCL 25 MG PO PRN (09:47)
[2017-04-21] MEDS ORDERED: PHENERGAN 25 MG PO PRN (09:58)
[2017-04-21] MEDS ORDERED: NON-FORMULARY ITEM (Ticagrelor [Brilinta] 90 MG) PO SCH (10:00)
[2017-04-21] MEDS ORDERED: NON-FORMULARY ITEM (Atorvastatin Calcium [Lipitor] 80 MG) PO SCH (10:00)
[2017-04-21] MEDS ORDERED: METOPROLOL TARTRATE 37.5 MG PO SCH (10:00)
[2017-04-21] MEDS ORDERED: MEDICATION INTERVENTION MC PRN (10:06)
[2017-04-21] MEDS: OXYCODONE-ACETAMINOPHEN 10-325 PO PRN ×2 (10:15→14:36)
[2017-04-21] MEDS: Phenergan 25 MG INJ IV PRN ×2 (10:19→20:39)
[2017-04-21] MEDS: BUSPAR 5 MG PO SCH ×2 (11:01→21:41)
[2017-04-21] MEDS: Lopressor 25MG Tab PO SCH ×2 (11:01→21:41)
[2017-04-21] MEDS: ENOXAPARIN SODIUM SQ SCH (11:02)
[2017-04-21] MEDS: Lantus Insulin SQ SCH (11:02)
[2017-04-21] MEDS: Vibramycin 100 MG PO SCH ×2 (14:35→21:44)
[2017-04-21] MEDS ORDERED: PATIENT OWN MEDICATION PO PRN (15:18)
[2017-04-21] MEDS: PATIENT OWN MEDICATION PO SCH ×2 (15:27→21:44)
[2017-04-21] MEDS: SUBLIMAZE 100 MCG/2 ML IV PRN ×2 (16:22→20:39)
[2017-04-21] MEDS: NovoLOG Insulin SQ PRN ×2 (16:23→23:27)
[2017-04-21] MEDS ORDERED: ZOCOR 20MG PO SCH (22:00)
[2017-04-21] MEDS ORDERED: LYRICA 100MG PO SCH (22:00)
[2017-04-21] MEDS ORDERED: PRISTIQ ER PO SCH (22:00)
[2017-04-21] MEDS ORDERED: Cardizem CD 240 MG PO SCH (22:00)
[2017-04-21] MEDS ORDERED: Ambien 10 MG PO SCH (22:00)
[2017-04-22] MEDS: OXYCODONE-ACETAMINOPHEN 10-325 PO PRN ×4 (01:23→13:34)
[2017-04-22] MEDS: SUBLIMAZE 100 MCG/2 ML IV PRN ×4 (01:23→13:35)
[2017-04-22] MEDS: Phenergan 25 MG INJ IV PRN ×2 (05:35→12:01)
[2017-04-22 05:46] LABS: BASOPHIL % 0.3 % (0.0-0.4); Eosinophil % 4.6 % (0.00-5.0); Granulocytes % 56.8 % (36.0-66.0); Lymphocytes % 30.3 % (24.0-44.0); Mean Cell Volume 87.2 fl (78-100); Mean Corpuscular Hemoglobin 28.4 pg (26-32); Mean Platelet Volume 11.5 fl (6-9.5); Platelet Count 251 K/mm3 (150-450); Red Blood Count 4.22 M/mm3 (4.1-5.4); Red Cell Distribution Width 13.1 % (11.5-14.0); White Blood Count 9.6 K/mm3 (4.0-10.5)
[2017-04-22 05:55] LABS: ALBUMIN 2.9 g/dL (3.4-5.0); ALKALINE PHOSPHATASE 221 U/L (46-116); ANION GAP 13.1 MEQ/L (5-15); BLOOD UREA NITROGEN 15 mg/dL (9-20); CHLORIDE 102 mEq/L (98-107); Carbon Dioxide 25.7 mEq/L (21-32); Glucose 440 MG/DL (70-110); MAGNESIUM 1.5 mg/dL (1.8-2.4); Potassium 4.3 mEq/L (3.5-5.1); SGOT/AST 59 U/L (15-37); SGPT/ALT 87 U/L (12-78); SODIUM 137 mEq/L (136-145); Total Protein 6.4 gm/dL (6.4-8.2)
[2017-04-22] MEDS: Lantus Insulin SQ SCH (07:49)
[2017-04-22] MEDS: NovoLOG Insulin SQ PRN ×2 (07:50→12:02)
--- NOTE | 2017-04-22 08:04 | PCM.DS ---
Discharge Summary Date of Admission: 04/21/17 02:18 Admitting Physician: JENNYFER FANG Primary Care Provider: JENNYFER FANG Allergies Allergies morphine Allergy (Intermediate, Verified 04/20/17 22:35) Stomach Pain meperidine HCl [From Demerol] Allergy (Mild, Verified 04/20/17 22:35) Hives Penicillins Allergy (Mild, Verified 04/20/17 22:35) Rash propoxyphene napsylate [From Darvocet-N 100] Allergy (Mild, Verified 04/20/17 22 :35) Hives levofloxacin [From Levaquin] Allergy (Verified 04/20/17 22:35) IMMUNE TO IT ondansetron HCl [From Zofran] Adverse Reaction (Intermediate, Verified 04/20/17 22:35) Nausea and Vomiting sulfamethoxazole [From Bactrim] Adverse Reaction (Verified 04/20/17 22:35) trimethoprim [From Bactrim] Adverse Reaction (Verified 04/20/17 22:35) Hospital Summary - Hospital Course Hospital Course: patient was admitted with chest pain and high blood sugar, pump had malfunctioned. she has a new pump arriving today, plan is to place it and if blood sugars are reasonable may go home later today. she has multiple spots on skin of folliculitis. has chronic pain, hx sarcoidosis - Vitals & Intake/Output Vital Signs: Vital Signs Temperature 97.9 F 04/22/17 06:51 Pulse Rate 75 04/22/17 06:51 Respiratory Rate 16 04/22/17 06:51 Blood Pressure 96/50 04/22/17 06:51 O2 Sat by Pulse Oximetry 95 04/22/17 06:51 Intake & Output: Intake & Output 04/19/17 04/20/17 04/21/17 04/22/17 11:59 11:59 11:59 11:59 Intake Total 360 4361 Output Total 1000 2100 Balance -640 2261 Weight 88.496 kg - Lab Result Diagrams: 04/22/17 05:30 04/22/17 05:30 Lab Results-Last 24 Hrs: Accuchecks Date 04/21/17 Time 22:00 Accucheck Value: 318 Accucheck Value: 426 Accucheck Value: 425 Lab Results-Last 24 Hours 04/21/17 04/22/17 04/22/17 Range/Units 05:00 05:30 05:30 WBC 9.6 (4.0-10.5) K/mm3 RBC 4.22 (4.1-5.4) M/mm3 Hgb 12.0 (12.0-16.0) gm/dl Hct 36.8 (35-47) % MCV 87.2 (78-100) fl MCH 28.4 (26-32) pg MCHC 32.6 (32-36) g/dl RDW 13.1 (11.5-14.0) % Plt Count 251 (150-450) K/mm3 MPV 11.5 H (6-9.5) fl Gran % 56.8 (36.0-66.0) % Lymphocytes % 30.3 (24.0-44.0) % Monocytes % 8.0 (0.0-12.0) % Eosinophils % 4.6 (0.00-5.0) % Basophils % 0.3 (0.0-0.4) % Basophils # 0.03 (0-0.4) Sodium 137 (136-145) mEq/L Potassium 4.3 (3.5-5.1) mEq/L Chloride 102 (98-107) mEq/L Carbon Dioxide 25.7 (21-32) mEq/L Anion Gap 13.1 (5-15) MEQ/L BUN 15 (9-20) mg/dL Creatinine 0.99 (0.55-1.30) mg/dl Estimated GFR > 60 ML/MIN Glucose 440 H (70-110) MG/DL Hemoglobin A1c 10.9 H (4.5-6.2) Calcium 8.5 (8.5-10.1) mg/dL Magnesium 1.5 L (1.8-2.4) mg/dL Total Bilirubin 0.40 (0.2-1.0) mg/dL AST 59 H (15-37) U/L ALT 87 H (12-78) U/L Alkaline Phosphatase 221 H (46-116) U/L Serum Total Protein 6.4 (6.4-8.2) gm/dL Albumin 2.9 L (3.4-5.0) g/dL Micro Results-Entire Visit: Accuchecks Date 04/21/17 Time 22:00 Accucheck Value: 318 Accucheck Value: 426 Accucheck Value: 425 Discharge Exam General Appearance: no apparent distress, alert Skin Exam: other (multiple small indurated red lesions, no fluctuance, left back , left axilla) Respiratory Exam: normal breath sounds, lungs clear, No respiratory distress Cardiovascular Exam: regular rate/rhythm, normal heart sounds Gastrointestinal/Abdomen Exam: soft, No tenderness, No mass Final Diagnosis/Problem List - Final Discharge Diagnosis/Problem (1) Chest pain Current Visit: Yes Status: Acute (2) Hyperglycemia due to type 1 diabetes mellitus Current Visit: Yes Status: Acute (3) Vomiting Current Visit: Yes Status: Acute (4) Sarcoidosis Current Visit: No Status: Chronic (5) Folliculitis Current Visit: Yes Status: Acute - Discharge Disposition: Home, Self-Care Condition: Stable Prescriptions: New Oxycodone / APAP 10/325 mg [Oxycodone-Acetaminophen 10-325] 1 tab PO Q4H PRN PRN #150 tablet PRN Reason: Pain Doxycycline Hyclate 100 mg [Vibramycin 100 MG] 100 mg PO BID #20 tab Continue Promethazine HCl 25 mg PO Q6HPRN PRN PRN Reason: Nausea Subcutaneous Insulin Pump [Insulin Pump] 1 each MC UD Desvenlafaxine Succinate [Pristiq] 100 mg PO HS #30 Pregabalin [Lyrica 100Mg] 100 mg PO HS Zolpidem Tartrate [Ambien] 10 mg PO HS #30 tablet Oxycodone HCl/Acetaminophen [Percocet 10-325 mg Tablet] 1 tablet PO Q4H PRN PRN #180 tablet PRN Reason: Pain Ticagrelor [Brilinta] 90 mg PO BID Metoprolol Tartrate 37.5 mg PO BID Atorvastatin Calcium [Lipitor] 80 mg PO DAILY Diltiazem HCl [Cartia Xt] 240 mg PO HS Buspirone HCl 5 mg [Buspar 5 mg] 5 mg PO BID Sumatriptan Succinate [Imitrex] 100 mg PO DAILY PRN PRN PRN Reason: migraine Follow up with: JENNYFER FANG MD [Primary Care Provider] -
[2017-04-22] MEDS: PATIENT OWN MEDICATION PO SCH (09:11)
[2017-04-22] MEDS: BUSPAR 5 MG PO SCH (09:11)
[2017-04-22] MEDS: Vibramycin 100 MG PO SCH (09:11)
[2017-04-22] MEDS: Lopressor 25MG Tab PO SCH (09:12)
[2017-04-22] MEDS: ENOXAPARIN SODIUM SQ SCH (09:12)
[2017-04-22] MEDS: Sodium Chloride 0.9% 1000 ML 1,000 ML IV SCH (09:27)
[2017-04-22 15:48] VITALS: BP 116/61; PULSE 86; O2SAT 98
--- NOTE | 2017-04-22 16:10 | PCM.DCORD ---
- Discharge Disposition: Home, Self-Care Condition: Stable Prescriptions: New Oxycodone / APAP 10/325 mg [Oxycodone-Acetaminophen 10-325] 1 tab PO Q4H PRN PRN #150 tablet PRN Reason: Pain Doxycycline Hyclate 100 mg [Vibramycin 100 MG] 100 mg PO BID #20 tab Continue Promethazine HCl 25 mg PO Q6HPRN PRN PRN Reason: Nausea Subcutaneous Insulin Pump [Insulin Pump] 1 each MC UD Desvenlafaxine Succinate [Pristiq] 100 mg PO HS #30 Pregabalin [Lyrica 100Mg] 100 mg PO HS Zolpidem Tartrate [Ambien] 10 mg PO HS #30 tablet Oxycodone HCl/Acetaminophen [Percocet 10-325 mg Tablet] 1 tablet PO Q4H PRN PRN #180 tablet PRN Reason: Pain Ticagrelor [Brilinta] 90 mg PO BID Metoprolol Tartrate 37.5 mg PO BID Atorvastatin Calcium [Lipitor] 80 mg PO DAILY Diltiazem HCl [Cartia Xt] 240 mg PO HS Buspirone HCl 5 mg [Buspar 5 mg] 5 mg PO BID Sumatriptan Succinate [Imitrex] 100 mg PO DAILY PRN PRN PRN Reason: migraine Follow up with: JENNYFER FANG MD [Primary Care Provider] - 04/28/17 1:30 pm Forms: Patient Portal Information
== END 2017-04-22 16:40 | disposition home or self-care (01) ==
LOC: ED 22:02 → MED SURG 04-21 02:18
PROVIDERS: ADMIT Family Medicine; ATTEND Family Medicine
DX: R07.9 Chest pain, unspecified (principal); E10.65 Type 1 diabetes mellitus with hyperglycemia; Z79.4 Long term (current) use of insulin; R11.2 Nausea with vomiting, unspecified; D86.9 Sarcoidosis, unspecified; I25.10 Atherosclerotic heart disease of native coronary artery without angina pectoris; L73.9 Follicular disorder, unspecified; I50.9 Heart failure, unspecified; Z79.899 Other long term (current) drug therapy; Z86.711 Personal history of pulmonary embolism
CPT/HCPCS: 36000; 36415; 71010; 80053; 81002; 82150; 82962; 83036; 83690; 83735; 84484; 84703; 85025; 93005; 93041; 93268; 96360; 96374; 96375; 99285; G0378; J1170; J1642; J1650; J2550; J3010; A9270-GY

== ENCOUNTER 2017-09-02 01:20 | Emergency (ER) | payer MEDICARE ==
[2017-09-02] MEDS ORDERED: NovoLIN R IV ONE (01:35)
[2017-09-02] MEDS ORDERED: Sodium Chloride 0.9% 1000 ML 1,000 ML IV STA (01:35)
[2017-09-02] MEDS ORDERED: Reglan 10 MG/2 ML IV ONE (01:38)
[2017-09-02] MEDS ORDERED: Reglan 10 MG/2 ML ONE (01:41)
[2017-09-02] MEDS ORDERED: NovoLIN R ONE ×2 (01:44→03:28)
[2017-09-02] MEDS ORDERED: Sodium Chloride 0.9% 1000 ML 1,000 ML ONE ×2 (01:44→04:15)
--- NOTE | 2017-09-02 01:46 | ERPHSYRPT ---
- History of Present Illness Time Seen by Provider: 09/02/17 01:35 Source: patient Exam Limitations: no limitations Patient Subjective Stated Complaint: states insulin pump malfunctioned about an hr prior to arrival, c/o pain in bilat shoulders, nausea Triage Nursing Assessment: c/o insulin pump malfunction prior to arrival, pain noted to bilat shoulders, nausea, no vomiting, no fevers, no cough, no diarrhea Physician History: Pt states her insulin pump is malfunctioning, her blood sugar was elevated, called her physician, who suggested to come here to be admitted. She is c/o chest pain/tightness, since after midnight, Her [place] is 399, she is nauseated, but denies vomiting, productive cough, fever, diarrhea, abdominal pain, other complaints. Timing/Duration: today Severity: moderate Associated Symptoms: nausea, chest pain Allergies/Adverse Reactions: morphine Allergy (Intermediate, Verified 04/20/17 22:35) Stomach Pain meperidine HCl [From Demerol] Allergy (Mild, Verified 04/20/17 22:35) Hives Penicillins Allergy (Mild, Verified 04/20/17 22:35) Rash propoxyphene napsylate [From Darvocet-N 100] Allergy (Mild, Verified 04/20/17 22 :35) Hives levofloxacin [From Levaquin] Allergy (Verified 04/20/17 22:35) IMMUNE TO IT ondansetron HCl [From Zofran] Adverse Reaction (Intermediate, Verified 04/20/17 22:35) Nausea and Vomiting sulfamethoxazole [From Bactrim] Adverse Reaction (Verified 04/20/17 22:35) trimethoprim [From Bactrim] Adverse Reaction (Verified 04/20/17 22:35) Home Medications: Promethazine HCl 25 mg PO Q6HPRN PRN 03/22/14 [History] Subcutaneous Insulin Pump [Insulin Pump] 1 each MC UD 03/22/14 [History] Pregabalin [Lyrica 100Mg] 100 mg PO HS 12/23/15 [History] Atorvastatin Calcium [Lipitor] 80 mg PO DAILY 01/09/17 [History] Metoprolol Tartrate 37.5 mg PO BID 01/09/17 [History] Ticagrelor [Brilinta] 90 mg PO BID 01/09/17 [History] Sumatriptan Succinate [Imitrex] 100 mg PO DAILY PRN PRN 04/21/17 [History] Bupropion HCl [Wellbutrin] 150 mg PO BID 09/02/17 [History] Hx Tetanus, Diphtheria Vaccination/Date Given: Yes Hx Influenza Vaccination/Date Given: No Hx Pneumococcal Vaccination/Date Given: No Immunizations Up to Date: Yes - Review of Systems Constitutional: No Symptoms Abdominal/Gastrointestinal: Nausea All Other Systems: Reviewed and Negative - Past Medical History Pertinent Past Medical History: Yes Neurological History: No Pertinent History ENT History: No Pertinent History Cardiac History: Congestive Heart Failure, Myocardial Infarction ([place]) Respiratory History: CHF, Pulmonary Embolism, Other Endocrine Medical History: Diabetes Type I Musculoskeletal History: No Pertinent History GI Medical History: No Pertinent History History: No Pertinent History Psycho-Social History: No Pertinent History Female Reproductive Disorders: No Pertinent History Other Medical History: Sarcoidosis, slipped disc - Past Surgical History Past Surgical History: Yes Neuro Surgical History: No Pertinent History Cardiac: Cardiac Catheterization Respiratory: Other Gastrointestinal: Cholecystectomy, Other Genitourinary: No Pertinent History Musculoskeletal: No Pertinent History Female Surgical History: Hysterectomy, Section Other Surgical History: LYMP NODE AND LUNG BIOPSY,PORT, liver biopsy, R TUBE REMOVED, - Social History Smoking Status: Former smoker How long have you smoked: 1 Exposure to second hand smoke: No Alcohol Use: None Drug Use: none Patient Lives Alone: No Significant Family History: no pertinent family hx - Female History Hx Last Menstrual Period: hysterectomy Hx Now: No - Nursing Vital Signs Nursing Vital Signs: Initial Vital Signs Temperature 97.8 F 09/02/17 01:35 Pulse Rate 124 H 09/02/17 01:35 Respiratory Rate 20 09/02/17 01:35 Blood Pressure 148/87 09/02/17 01:35 O2 Sat by Pulse Oximetry 98 09/02/17 01:35 Pain Scale Pain Intensity 7 - Physical Exam General Appearance: no apparent distress Eye Exam: PERRL/EOMI Ears, Nose, Throat Exam: normal ENT inspection, pharynx normal Neck Exam: normal inspection, non-tender, supple Respiratory Exam: normal breath sounds, lungs clear, airway intact, No chest tenderness Cardiovascular Exam: normal heart sounds, normal peripheral pulses, tachycardia , No murmur Gastrointestinal/Abdomen Exam: soft, normal bowel sounds, No tenderness, No distention, No mass Back Exam: normal inspection, No CVA tenderness Extremity Exam: normal inspection, pelvis stable Neurologic Exam: alert, oriented x 3, cooperative, normal mood/affect Skin Exam: normal color, warm, dry, No rash Lymphatic Exam: No adenopathy SpO2 Interpretation: normal SpO2: 98 Oxygen Delivery: Room Air - Course Nursing assessment & vital signs reviewed: Yes EKG Interpreted by Me: RATE (120/min), Sinus Tach, NORMAL AXIS, Right Bundle Branch Block, Non-specific ST Changes - Radiology Exams Chest X-ray Interpretation: Interpreted by me, Negative, Other (s/p CABG) Ordered Tests: Active Orders 24 hr Category Date Time Status Clean Catch Urine Specimen STAT Care 09/02/17 01:40 Active EKG-ER Only STAT Care 09/02/17 01:39 Active CHEST 1 VIEW (PORTABLE) Stat Exams 09/02/17 01:35 Taken BNP [NT PRO BNP] Stat Lab 09/02/17 01:40 Received CBC W DIFF Stat Lab 09/02/17 01:57 Completed CK-Creatinine Phosphokinase Urgent Lab 09/02/17 01:57 Completed CMP Stat Lab 09/02/17 01:57 Completed HCG,QUALITATIVE URINE Stat Lab 09/02/17 01:57 Completed LIPASE Urgent Lab 09/02/17 01:57 Completed Lactic Acid Stat Lab 09/02/17 01:50 Results MAGNESIUM Stat Lab 09/02/17 01:57 Completed TROPONIN Q3H Lab 09/02/17 01:57 Completed TROPONIN Q3H Lab 09/02/17 04:45 Ordered TROPONIN Q3H Lab 09/02/17 07:45 Ordered TROPONIN Q3H Lab 09/02/17 10:45 Ordered TROPONIN Q3H Lab 09/02/17 13:45 Ordered UA W/ MICROSCOPIC Stat Lab 09/02/17 01:57 Completed Urine Triage Profile Stat Lab 09/02/17 01:58 Completed VENOUS BLOOD GAS Stat Lab 09/02/17 01:50 Completed Medication Summary Discontinued Medications Generic Name Dose Route Start Last Admin Trade Name Freq PRN Reason Stop Dose Admin Dicyclomine HCl 20 mg 09/02/17 02:15 09/02/17 02:19 Bentyl 20 Mg PO 09/02/17 02:16 20 mg NOW ONE Administration Dicyclomine HCl Confirm 09/02/17 02:19 Bentyl 20 Mg Administered 09/02/17 02:20 Dose 20 mg .ROUTE .STK-MED ONE Enoxaparin Sodium 85 mg 09/02/17 03:01 09/02/17 03:12 Enoxaparin Sodium SQ 09/02/17 03:02 85 mg NOW ONE Administration Sodium Chloride 1,000 mls @ 999 mls/hr 09/02/17 01:35 09/02/17 01:57 Sodium Chloride 0.9% 1000 Ml IV 09/02/17 02:35 999 mls/hr .Q1H1M STA Administration Sodium Chloride Confirm 09/02/17 01:44 Sodium Chloride 0.9% 1000 Ml Administered 09/02/17 01:45 Dose 1,000 mls @ ud .ROUTE .STK-MED ONE Insulin Human Regular 5 unit 09/02/17 01:35 09/02/17 01:57 Novolin R IV 09/02/17 01:36 5 unit STAT ONE Administration Insulin Human Regular Confirm 09/02/17 01:44 Novolin R Administered 09/02/17 01:45 Dose 5 unit .ROUTE .STK-MED ONE Metoclopramide HCl 10 mg 09/02/17 01:38 09/02/17 01:57 Reglan 10 Mg/2 Ml IV 09/02/17 01:39 10 mg STAT ONE Administration Metoclopramide HCl Confirm 09/02/17 01:41 Reglan 10 Mg/2 Ml Administered 09/02/17 01:42 Dose 10 mg .ROUTE .STK-MED ONE Oxycodone/Acetaminophen Confirm 09/02/17 03:16 Percocet Tablet 5/325mg Administered 09/02/17 03:17 Dose 1 tab .ROUTE .STK-MED ONE Oxycodone/Acetaminophen 2 tab 09/02/17 03:21 Percocet Tablet 5/325mg PO 09/02/17 03:22 STAT STA Lab/Rad Data: Laboratory Result Diagrams 09/02/17 01:57 09/02/17 01:57 Laboratory Results 09/02/17 09/02/17 09/02/17 Range/Units 01:58 01:57 01:57 WBC (4.0-10.5) K/mm3 RBC (4.1-5.4) M/mm3 Hgb (12.0-16.0) gm/dl Hct (35-47) % MCV (78-100) fl MCH (26-32) pg MCHC (32-36) g/dl RDW (11.5-14.0) % Plt Count (150-450) K/mm3 MPV (6-9.5) fl Gran % (36.0-66.0) % Lymphocytes % (24.0-44.0) % Monocytes % (0.0-12.0) % Eosinophils % (0.00-5.0) % Basophils % (0.0-0.4) % Basophils # (0-0.4) VBG pH (7.32-7.42) VBG pCO2 at Pat Temp (42-55) mm/Hg VBG pO2 at Pat Temp (25-40) mm/Hg VBG HCO3 (22-28) meq/L VBG O2 Sat ([place]) (95-100) VBG Base Excess (-2.0-2.0) VBG Hemoglobin VBG Carboxyhemoglobin (0.0-6.9) % T HGB POC Potassium (3.5-5.1) Sodium (136-145) mEq/L Potassium (3.5-5.1) mEq/L Chloride (98-107) mEq/L Carbon Dioxide (21-32) mEq/L Anion Gap (5-15) MEQ/L BUN (9-20) mg/dL Creatinine (0.55-1.30) mg/dl Estimated GFR ML/MIN Glucose (70-110) MG/DL Lactic Acid (0.4-2.0) Calcium (8.5-10.1) mg/dL Magnesium (1.8-2.4) mg/dL Total Bilirubin (0.2-1.0) mg/dL AST (15-37) U/L ALT (12-78) U/L Alkaline Phosphatase (46-116) U/L Creatine Kinase 46 (26-192) U/L Troponin I 0.113 H* (0.000-0.056) ng/ml Serum Total Protein (6.4-8.2) gm/dL Albumin (3.4-5.0) g/dL Lipase 111 (73-393) U/L Ur Collection Type Urine Color (YELLOW) Urine Appearance (CLEAR) Urine pH (5-6) Ur Specific [place] (1.005-1.025) Urine Protein (Negative) Urine Ketones (NEGATIVE) Urine Blood (0-5) Zain/ul Urine Nitrite (NEGATIVE) Urine Bilirubin (NEGATIVE) Urine Urobilinogen (0-1) mg/dL Ur Leukocyte Esterase (NEGATIVE) Urine Microscopic RBC (0-2) /HPF Urine Microscopic WBC (0-5) /HPF Ur Epithelial Cells (FEW) /HPF Urine Bacteria (NEGATIVE) /HPF Urine Mucus (NEGATIVE) /HPF Urine Culture Reflexed (NO) Urine Glucose (NEGATIVE) mg/dL Urine HCG, Qual NEGATIVE (Negative) Urine Opiates Level NEG. (NEGATIVE) Ur Methadone NEG. (NEGATIVE) Urine Barbiturates NEG. (NEGATIVE) Ur Phencyclidine (PCP) NEG. (NEGATIVE) Urine Amphetamine NEG. (NEGATIVE) U Benzodiazepine Level NEG. (NEGATIVE) Urine Cocaine NEG. (NEGATIVE) Urine Marijuana (THC) NEG. (NEGATIVE) Specimen Received 09/02/17 09/02/17 09/02/17 Range/Units 01:57 01:57 01:57 WBC 9.6 (4.0-10.5) K/mm3 RBC 4.64 (4.1-5.4) M/mm3 Hgb 12.3 (12.0-16.0) gm/dl Hct 37.5 (35-47) % MCV 80.8 (78-100) fl MCH 26.5 (26-32) pg MCHC 32.8 (32-36) g/dl RDW 14.5 H (11.5-14.0) % Plt Count 195 (150-450) K/mm3 MPV 11.2 H (6-9.5) fl Gran % 59.9 (36.0-66.0) % Lymphocytes % 24.8 (24.0-44.0) % Monocytes % 8.9 (0.0-12.0) % Eosinophils % 6.1 H (0.00-5.0) % Basophils % 0.3 (0.0-0.4) % Basophils # 0.03 (0-0.4) VBG pH (7.32-7.42) VBG pCO2 at Pat Temp (42-55) mm/Hg VBG pO2 at Pat Temp (25-40) mm/Hg VBG HCO3 (22-28) meq/L VBG O2 Sat ([place]) (95-100) VBG Base Excess (-2.0-2.0) VBG Hemoglobin VBG Carboxyhemoglobin (0.0-6.9) % T HGB POC Potassium (3.5-5.1) Sodium 136 (136-145) mEq/L Potassium 3.7 (3.5-5.1) mEq/L Chloride 100 (98-107) mEq/L Carbon Dioxide 26.4 (21-32) mEq/L Anion Gap 13.3 (5-15) MEQ/L BUN 19 (9-20) mg/dL Creatinine 1.09 (0.55-1.30) mg/dl Estimated GFR > 60 ML/MIN Glucose 423 H (70-110) MG/DL Lactic Acid (0.4-2.0) Calcium 8.6 (8.5-10.1) mg/dL Magnesium 1.5 L (1.8-2.4) mg/dL Total Bilirubin 0.60 (0.2-1.0) mg/dL AST 170 H (15-37) U/L ALT 155 H (12-78) U/L Alkaline Phosphatase 313 H (46-116) U/L Creatine Kinase (26-192) U/L Troponin I (0.000-0.056) ng/ml Serum Total Protein 7.0 (6.4-8.2) gm/dL Albumin 3.3 L (3.4-5.0) g/dL Lipase (73-393) U/L Ur Collection Type VOID Urine Color YELLOW (YELLOW) Urine Appearance CLEAR (CLEAR) Urine pH 5.0 (5-6) Ur Specific [place] 1.015 (1.005-1.025) Urine Protein NEGATIVE (Negative) Urine Ketones SMALL (NEGATIVE) Urine Blood TRACE NON-HEM (0-5) Zain/ul Urine Nitrite NEGATIVE (NEGATIVE) Urine Bilirubin NEGATIVE (NEGATIVE) Urine Urobilinogen NORMAL (0-1) mg/dL Ur Leukocyte Esterase NEGATIVE (NEGATIVE) Urine Microscopic RBC 5-10 (0-2) /HPF Urine Microscopic WBC 0-2 (0-5) /HPF Ur Epithelial Cells FEW (FEW) /HPF Urine Bacteria FEW (NEGATIVE) /HPF Urine Mucus SLIGHT (NEGATIVE) /HPF Urine Culture Reflexed NO (NO) Urine Glucose 1000 (NEGATIVE) mg/dL Urine HCG, Qual (Negative) Urine Opiates Level (NEGATIVE) Ur Methadone (NEGATIVE) Urine Barbiturates (NEGATIVE) Ur Phencyclidine (PCP) (NEGATIVE) Urine Amphetamine (NEGATIVE) U Benzodiazepine Level (NEGATIVE) Urine Cocaine (NEGATIVE) Urine Marijuana (THC) (NEGATIVE) Specimen Received 09/02/17 0200 09/02/17 09/02/17 Range/Units 01:50 01:50 WBC (4.0-10.5) K/mm3 RBC (4.1-5.4) M/mm3 Hgb (12.0-16.0) gm/dl Hct (35-47) % MCV (78-100) fl MCH (26-32) pg MCHC (32-36) g/dl RDW (11.5-14.0) % Plt Count (150-450) K/mm3 MPV (6-9.5) fl Gran % (36.0-66.0) % Lymphocytes % (24.0-44.0) % Monocytes % (0.0-12.0) % Eosinophils % (0.00-5.0) % Basophils % (0.0-0.4) % Basophils # (0-0.4) VBG pH 7.37 (7.32-7.42) VBG pCO2 at Pat Temp 47 (42-55) mm/Hg VBG pO2 at Pat Temp 29 (25-40) mm/Hg VBG HCO3 27.2 (22-28) meq/L VBG O2 Sat ([place]) 69.9 L (95-100) VBG Base Excess 1.3 (-2.0-2.0) VBG Hemoglobin 13.2 VBG Carboxyhemoglobin 3.4 (0.0-6.9) % T HGB POC Potassium 3.8 (3.5-5.1) Sodium (136-145) mEq/L Potassium (3.5-5.1) mEq/L Chloride (98-107) mEq/L Carbon Dioxide (21-32) mEq/L Anion Gap (5-15) MEQ/L BUN (9-20) mg/dL Creatinine (0.55-1.30) mg/dl Estimated GFR ML/MIN Glucose (70-110) MG/DL Lactic Acid 1.9 (0.4-2.0) Calcium (8.5-10.1) mg/dL Magnesium (1.8-2.4) mg/dL Total Bilirubin (0.2-1.0) mg/dL AST (15-37) U/L ALT (12-78) U/L Alkaline Phosphatase (46-116) U/L Creatine Kinase (26-192) U/L Troponin I (0.000-0.056) ng/ml Serum Total Protein (6.4-8.2) gm/dL Albumin (3.4-5.0) g/dL Lipase (73-393) U/L Ur Collection Type Urine Color (YELLOW) Urine Appearance (CLEAR) Urine pH (5-6) Ur Specific [place] (1.005-1.025) Urine Protein (Negative) Urine Ketones (NEGATIVE) Urine Blood (0-5) Zain/ul Urine Nitrite (NEGATIVE) Urine Bilirubin (NEGATIVE) Urine Urobilinogen (0-1) mg/dL Ur Leukocyte Esterase (NEGATIVE) Urine Microscopic RBC (0-2) /HPF Urine Microscopic WBC (0-5) /HPF Ur Epithelial Cells (FEW) /HPF Urine Bacteria (NEGATIVE) /HPF Urine Mucus (NEGATIVE) /HPF Urine Culture Reflexed (NO) Urine Glucose (NEGATIVE) mg/dL Urine HCG, Qual (Negative) Urine Opiates Level (NEGATIVE) Ur Methadone (NEGATIVE) Urine Barbiturates (NEGATIVE) Ur Phencyclidine (PCP) (NEGATIVE) Urine Amphetamine (NEGATIVE) U Benzodiazepine Level (NEGATIVE) Urine Cocaine (NEGATIVE) Urine Marijuana (THC) (NEGATIVE) Specimen Received - Progress Progress: improved Progress Note: 09/02/17 03:24 Improved after 5U regular insulin iv and iv saline, no severe pain or distress, not diaphoretic no sign of dyspnea, c/o back spasms. I discussed the results with patient and her , informed, that she will need to be transferred. They requested [facility] in [place], where she had her CABG inn 2016. I called Dr Roberts Hospitalist at [facility] and Dr Mina Manager Environmental Health, discussed her results and current condition, they accepted her to be transferred for further care and evaluation. I informed patient and her , they agreed. She is stable for the transport. Blood sugar : 303 after iv. Insulin, will give 10 U regular insulin SQ. - Departure Time of Disposition: 03:29 Departure Disposition: Transfer Clinical Impression: Elevated troponin Chest pain Qualifiers: Chest pain type: unspecified Qualified Code(s): R07.9 - Chest pain, unspecified Type 1 diabetes mellitus Qualifiers: Diabetes mellitus complication status: with hyperglycemia Qualified Code(s): E10.65 - Type 1 diabetes mellitus with hyperglycemia Condition: Stable Critical Care Time: Yes Critical Care Time(excluding separately billable procedures): 30-74 minutes ( elevated troponin, tachycardia, uncontrolled IDDM) Referrals: JENNYFER FANG MD [Primary Care Provider] -
[2017-09-02 02:00] LABS: VBG BASE EXCESS 1.3 (-2.0-2.0); VBG CARBOXYHEMOGLOBIN 3.4 % T HGB (0.0-6.9); VBG HCO3- 27.2 meq/L (22-28); VBG HEMOGLOBIN 13.2; VBG O2 SATURATION 69.9 (95-100); VBG POTASSIUM 3.8 (3.5-5.1); VBG pH 7.37 (7.32-7.42)
[2017-09-02 02:01] LABS: Lactic Acid 1.9 (0.4-2.0)
[2017-09-02 02:12] LABS: Appearance CLEAR (CLEAR); BASOPHIL % 0.3 % (0.0-0.4); Basophil (Absolute #) 0.03 (0-0.4); Bilirubin NEGATIVE (NEGATIVE); Blood TRACE NON-HEM Ery/ul (0-5); Eosinophil % 6.1 % (0.00-5.0); Eosinophil (Absolute #) 0.58 (0-0.5); Glucose 1000 mg/dL (NEGATIVE); Granulocyte Absolute (ANC) 5.73 (1.4-6.9); Granulocytes % 59.9 % (36.0-66.0); Hematocrit 37.5 % (35-47); Hemoglobin 12.3 gm/dl (12.0-16.0); Ketones SMALL (NEGATIVE); Leukocyte Esterase NEGATIVE (NEGATIVE); Lymphocyte (Absolute #) 2.37 (1.0-4.6); Lymphocytes % 24.8 % (24.0-44.0); Mean Cell Volume 80.8 fl (78-100); Mean Corpuscular Hemoglobin 26.5 pg (26-32); Mean Corpuscular Hgb Concent. 32.8 g/dl (32-36); Mean Platelet Volume 11.2 fl (6-9.5); Monocyte (Absolute #) 0.85 (0.0-1.3); Monocytes % 8.9 % (0.0-12.0); Nitrite NEGATIVE (NEGATIVE); Platelet Count 195 K/mm3 (150-450); Protein,Urine Dip NEGATIVE (Negative); Red Blood Count 4.64 M/mm3 (4.1-5.4); Red Cell Distribution Width 14.5 % (11.5-14.0); Specific Gravity 1.015 (1.005-1.025); Urobilinogen NORMAL mg/dL (0-1); White Blood Count 9.6 K/mm3 (4.0-10.5)
[2017-09-02 02:13] LABS: Bacteria FEW /HPF (NEGATIVE); Epithelial Cells FEW /HPF (FEW); Mucus SLIGHT /HPF (NEGATIVE); WBC 0-2 /HPF (0-5)
[2017-09-02] MEDS ORDERED: BENTYL 20 MG PO ONE (02:15)
[2017-09-02 02:16] LABS: Amphetamine,Urine NEG. (NEGATIVE); Barbiturate,Urine NEG. (NEGATIVE); Benzodiazepine,Urine NEG. (NEGATIVE); Cocaine,Urine NEG. (NEGATIVE); Methadone,Urine NEG. (NEGATIVE); Opiate,Urine NEG. (NEGATIVE); PCP,Urine NEG. (NEGATIVE); THC,Urine NEG. (NEGATIVE)
[2017-09-02] MEDS ORDERED: BENTYL 20 MG ONE (02:19)
[2017-09-02 02:42] LABS: ALBUMIN 3.3 g/dL (3.4-5.0); ALKALINE PHOSPHATASE 313 U/L (46-116); ANION GAP 13.3 MEQ/L (5-15); BLOOD UREA NITROGEN 19 mg/dL (9-20); CHLORIDE 100 mEq/L (98-107); Calcium 8.6 mg/dL (8.5-10.1); Carbon Dioxide 26.4 mEq/L (21-32); Creatinine 1 1.09 mg/dl (0.55-1.30); EST GLOMERULAR FILTRATION RATE > 60 ML/MIN; Glucose 423 MG/DL (70-110); MAGNESIUM 1.5 mg/dL (1.8-2.4); Potassium 3.7 mEq/L (3.5-5.1); SGOT/AST 170 U/L (15-37); SGPT/ALT 155 U/L (12-78); SODIUM 136 mEq/L (136-145)
[2017-09-02 02:50] LABS: TROPONIN 0.113 ng/ml (0.000-0.056)
[2017-09-02] MEDS ORDERED: ENOXAPARIN SODIUM SQ ONE (03:01)
[2017-09-02] MEDS ORDERED: PERCOCET TABLET 5/325MG ONE ×2 (03:16→03:23)
[2017-09-02] MEDS ORDERED: PERCOCET TABLET 5/325MG PO STA (03:21)
[2017-09-02] MEDS ORDERED: NovoLIN R SQ ONE (03:28)
[2017-09-02] MEDS ORDERED: Oxy-IR 5 MG PO ONE (03:28)
[2017-09-02 04:12] VITALS: BP 111/62; PULSE 104; O2SAT 99
[2017-09-02] MEDS ORDERED: Hydromorphone 1 mg/ml Ampule ONE (04:22)
[2017-09-02] MEDS ORDERED: Hydromorphone 1 mg/ml Ampule IV ONE (04:27)
--- NOTE | 2017-09-02 08:58 | XRAY ---
Indication: Chest tightness. Comparison: April 20, 2017. Portable chest demonstrates interval CABG surgery without cardiomegaly. Stable left-sided Port-A-Cath. Remaining heart, lungs, and bony thorax normal.
== END 2017-09-02 04:30 | disposition short-term general hospital (02) ==
LOC: ED 01:20
DX: R07.9 Chest pain, unspecified (principal); E10.65 Type 1 diabetes mellitus with hyperglycemia; T85.694A Other mechanical complication of insulin pump, initial encounter; M25.512 Pain in left shoulder; M25.511 Pain in right shoulder; R11.0 Nausea; Z79.899 Other long term (current) drug therapy; I50.9 Heart failure, unspecified; I25.2 Old myocardial infarction; E10.9 Type 1 diabetes mellitus without complications; R79.89 Other specified abnormal findings of blood chemistry; R00.0 Tachycardia, unspecified
CPT/HCPCS: 36000; 36415; 71045; 80053; 80307; 81000; 82550; 82805; 82962; 83605; 83690; 83735; 83880; 84484; 84703; 85025; 93005; 93041; 96360; 96361; 99285; J1170; J1650; A9270-GY

== ENCOUNTER 2018-02-02 20:15 | Observation (INO) | payer MEDICARE ==
--- NOTE | 2018-02-02 20:27 | ERPHSYRPT ---
- History of Present Illness Time Seen by Provider: 02/02/18 20:16 Historian: patient Exam Limitations: no limitations Physician History: Pt started c/o chest pain 1.5 hrs ago. She has a Hx of CAD, ME, CABG ( 2 vessels ), c/o mild SOB, nausea, denies vomiting, fever, productive cough. She takes baby ASA every day. Timing/Duration: hour(s) (1.5) Activities at Onset: activity Quality: sharpness Location: central Chest Pain Radiation: back Severity of Pain-Max: severe Severity of Pain-Current: severe Modifying Factors: Improves With: nothing Associated Symptoms: nausea, shortness of breath Prior Chest Pain/Cardiac Workup: angina Nitro Today/Relief: no nitro taken today Aspirin Treatment Today: 81 mg x 1 Allergies/Adverse Reactions: meperidine HCl [From Demerol] Allergy (Mild, Verified 04/20/17 22:35) Hives Penicillins Allergy (Mild, Verified 04/20/17 22:35) Rash propoxyphene napsylate [From Darvocet-N 100] Allergy (Mild, Verified 04/20/17 22 :35) Hives levofloxacin [From Levaquin] Allergy (Verified 04/20/17 22:35) IMMUNE TO IT ondansetron HCl [From Zofran] Adverse Reaction (Intermediate, Verified 04/20/17 22:35) Nausea and Vomiting sulfamethoxazole [From Bactrim] Adverse Reaction (Verified 04/20/17 22:35) trimethoprim [From Bactrim] Adverse Reaction (Verified 04/20/17 22:35) Home Medications: Promethazine HCl 25 mg PO Q6HPRN PRN 03/22/14 [History] Subcutaneous Insulin Pump [Insulin Pump] 1 each MC 03/22/14 [History] Pregabalin [Lyrica 100Mg] 100 mg PO HS 12/23/15 [History] Atorvastatin Calcium [Lipitor] 80 mg PO DAILY 01/09/17 [History] Metoprolol Tartrate 37.5 mg PO BID 01/09/17 [History] Ticagrelor [Brilinta] 90 mg PO BID 01/09/17 [History] SUMAtriptan succinate [Imitrex] 100 mg PO DAILY PRN PRN 04/21/17 [History] Bupropion HCl [Wellbutrin] 150 mg PO BID 01/18/18 [History] Hx Tetanus, Diphtheria Vaccination/Date Given: Yes Hx Influenza Vaccination/Date Given: No Hx Pneumococcal Vaccination/Date Given: No - Review of Systems Constitutional: No Symptoms Respiratory: Dyspnea Cardiac: Chest Pain All Other Systems: Reviewed and Negative - Past Medical History Pertinent Past Medical History: Yes Neurological History: No Pertinent History ENT History: No Pertinent History Cardiac History: Congestive Heart Failure, Myocardial Infarction (ME) Respiratory History: CHF, Pulmonary Embolism, Other Endocrine Medical History: Diabetes Type I Musculoskeletal History: No Pertinent History GI Medical History: No Pertinent History History: No Pertinent History Psycho-Social History: No Pertinent History Female Reproductive Disorders: No Pertinent History Other Medical History: Sarcoidosis, slipped disc - Past Surgical History Past Surgical History: Yes Neuro Surgical History: No Pertinent History Cardiac: Cardiac Catheterization Respiratory: Other Gastrointestinal: Cholecystectomy, Other Genitourinary: No Pertinent History Musculoskeletal: No Pertinent History Female Surgical History: Hysterectomy, Section Other Surgical History: LYMP NODE AND LUNG BIOPSY,PORT, liver biopsy, R TUBE REMOVED, - Social History Smoking Status: Former smoker How long have you smoked: 1 Exposure to second hand smoke: No Alcohol Use: None Drug Use: none Patient Lives Alone: No Significant Family History: no pertinent family hx - Female History Hx Now: No - Nursing Vital Signs Nursing Vital Signs: Initial Vital Signs Pulse Rate 100 H 02/02/18 20:15 Respiratory Rate 18 02/02/18 20:15 Blood Pressure 131/77 02/02/18 20:15 O2 Sat by Pulse Oximetry 100 02/02/18 20:15 Pain Scale Pain Intensity 7 - Physical Exam General Appearance: no apparent distress Eye Exam: eyes nml inspection Ears, Nose, Throat Exam: normal ENT inspection Neck Exam: normal inspection, non-tender, supple, No carotid bruit, No JVD Respiratory Exam: normal breath sounds, lungs clear, airway intact, No chest tenderness Cardiovascular Exam: regular rate/rhythm, normal heart sounds, normal peripheral pulses, No murmur, No gallop Gastrointestinal/Abdomen Exam: soft, normal bowel sounds, No tenderness, No distention, No mass, No guarding, No pulsatile mass Back Exam: normal inspection, No CVA tenderness Extremity Exam: normal inspection, No calf tenderness, No roxanne's sign, No pedal edema Neurologic Exam: alert, oriented x 3 Skin Exam: normal color, warm, dry, No rash Lymphatic Exam: No adenopathy SpO2 Interpretation: normal Oxygen Delivery: Room Air - Course Nursing assessment & vital signs reviewed: Yes EKG Interpreted by Me: RATE, Sinus Tach (102/min), Right Bundle Branch Block ( incomplete), Non-specific ST Changes - Radiology Exams Chest X-ray Interpretation: Interpreted by me, Negative Ordered Tests: Active Orders 24 hr Category Date Time Status Grab Operator STAT Care 02/02/18 20:23 Active EKG-ER Only STAT Care 02/02/18 20:21 Active Oxygen-ED Only NASAL CANNULA 2 lpm Care 02/02/18 20:21 Active CHEST 1 VIEW (PORTABLE) Stat Exams 02/02/18 20:21 Taken CBC W DIFF Stat Lab 02/02/18 20:43 Completed CK-Creatinine Phosphokinase Stat Lab 02/02/18 20:43 Completed CMP Stat Lab 02/02/18 20:43 Completed D-DIMER QUANTITATION Stat Lab 02/02/18 20:43 Completed LIPASE Stat Lab 02/02/18 20:43 Completed NT PRO BNP Stat Lab 02/02/18 20:43 Completed PROTIME WITH INR Stat Lab 02/02/18 20:43 Completed PTT Stat Lab 02/02/18 20:43 Completed TROPONIN Q3H Lab 02/02/18 20:43 Completed TROPONIN Q3H Lab 02/02/18 23:30 Ordered TROPONIN Q3H Lab 02/03/18 02:30 Ordered TROPONIN Q3H Lab 02/03/18 05:30 Ordered TROPONIN Q3H Lab 02/03/18 08:30 Ordered Urine Triage Profile Stat Lab 02/02/18 21:30 Completed Medication Summary Generic Name Dose Route Start Last Admin Trade Name Freq PRN Reason Stop Dose Admin Sodium Chloride 500 mls @ 500 mls/hr 02/02/18 22:10 02/02/18 22:15 Sodium Chloride 0.9% 500 Ml IV 02/02/18 23:09 500 mls/hr .Q1H ONE Administration Discontinued Medications Generic Name Dose Route Start Last Admin Trade Name Freq PRN Reason Stop Dose Admin Sodium Chloride Confirm 02/02/18 22:13 Sodium Chloride 0.9% 500 Ml Administered 02/02/18 22:14 Dose 500 mls @ ud IV .STK-MED ONE Insulin Human Regular 10 unit 02/02/18 22:08 02/02/18 22:15 Novolin R SQ 02/02/18 22:09 10 unit STAT ONE Administration Insulin Human Regular Confirm 02/02/18 22:13 Novolin R Administered 02/02/18 22:14 Dose 10 unit .ROUTE .STK-MED ONE Morphine Sulfate 4 mg 02/02/18 22:19 Morphine Sulfate 4 Mg Inj IV 02/02/18 22:20 STAT ONE Morphine Sulfate Confirm 02/02/18 22:25 Morphine Sulfate 4 Mg Inj Administered 02/02/18 22:26 Dose 4 mg .ROUTE .STK-MED ONE Nitroglycerin Confirm 02/02/18 21:40 Nitrostat 0.4 Mg (Ed) Administered 02/02/18 21:41 Dose 0.4 mg SL .STK-MED ONE Ondansetron HCl 4 mg 02/02/18 22:19 Zofran 4 Mg/2 Ml Vial IV 02/02/18 22:20 STAT ONE Ondansetron HCl Confirm 02/02/18 22:25 Zofran 4 Mg/2 Ml Vial Administered 02/02/18 22:26 Dose 4 mg .ROUTE .STK-MED ONE Promethazine HCl 25 mg 02/02/18 22:31 Phenergan 25 Mg Inj IM 02/02/18 22:32 STAT ONE Promethazine HCl Confirm 02/02/18 22:33 Phenergan 25 Mg Inj Administered 02/02/18 22:34 Dose 25 mg .ROUTE .STK-MED ONE Lab/Rad Data: Laboratory Result Diagrams 02/02/18 20:43 02/02/18 20:43 Laboratory Results 02/02/18 02/02/18 02/02/18 Range/Units 21:30 20:43 20:43 WBC (4.0-10.5) K/mm3 RBC (4.1-5.4) M/mm3 Hgb (12.0-16.0) gm/dl Hct (35-47) % MCV (78-100) fl MCH (26-32) pg MCHC (32-36) g/dl RDW (11.5-14.0) % Plt Count (150-450) K/mm3 MPV (6-9.5) fl Gran % (36.0-66.0) % Eos # (Auto) (0-0.5) Absolute Lymphs (auto) (1.0-4.6) Absolute Monos (auto) (0.0-1.3) Lymphocytes % (24.0-44.0) % Monocytes % (0.0-12.0) % Eosinophils % (0.00-5.0) % Basophils % (0.0-0.4) % Absolute Granulocytes (1.4-6.9) Basophils # (0-0.4) PT 10.1 (9.95-12.35) SECONDS INR 0.87 (0.8-3.0) APTT 33.7 (25.3-37.0) SECONDS D-Dimer < 215 L (215-500) ng/mL Sodium (137-145) mmol/L Potassium (3.5-5.1) mmol/L Chloride (98-107) mmol/L Carbon Dioxide (22-30) mmol/L Anion Gap (5-15) MEQ/L BUN (7-17) mg/dL Creatinine (0.52-1.04) mg/dL Estimated GFR ML/MIN Glucose (74-106) mg/dL Calcium (8.4-10.2) mg/dL Total Bilirubin (0.2-1.3) mg/dL AST (14-36) U/L ALT (0-35) U/L Alkaline Phosphatase (38-126) U/L Creatine Kinase (30-135) U/L Troponin I < 0.012 (0.000-0.034) ng/mL NT-Pro-B Natriuret Pep (0-450) pg/mL Serum Total Protein (6.3-8.2) g/dL Albumin (3.5-5.0) g/dL Lipase (23-300) U/L Urine Opiates Level NEGATIVE (NEGATIVE) Ur Methadone NEGATIVE (NEGATIVE) Urine Barbiturates NEGATIVE (NEGATIVE) Ur Phencyclidine (PCP) NEGATIVE (NEGATIVE) Urine Amphetamine NEGATIVE (NEGATIVE) U Benzodiazepine Level NEGATIVE (NEGATIVE) Urine Cocaine NEGATIVE (NEGATIVE) Urine Marijuana (THC) NEGATIVE (NEGATIVE) 02/02/18 02/02/18 Range/Units 20:43 20:43 WBC 8.9 (4.0-10.5) K/mm3 RBC 5.27 (4.1-5.4) M/mm3 Hgb 14.0 (12.0-16.0) gm/dl Hct 40.8 (35-47) % MCV 77.4 L (78-100) fl MCH 26.6 (26-32) pg MCHC 34.3 (32-36) g/dl RDW 16.4 H (11.5-14.0) % Plt Count 278 (150-450) K/mm3 MPV 11.1 H (6-9.5) fl Gran % 61.9 (36.0-66.0) % Eos # (Auto) 0.26 (0-0.5) Absolute Lymphs (auto) 2.37 (1.0-4.6) Absolute Monos (auto) 0.71 (0.0-1.3) Lymphocytes % 26.7 (24.0-44.0) % Monocytes % 8.0 (0.0-12.0) % Eosinophils % 2.9 (0.00-5.0) % Basophils % 0.5 (0.0-0.4) % Absolute Granulocytes 5.48 (1.4-6.9) Basophils # 0.04 (0-0.4) PT (9.95-12.35) SECONDS INR (0.8-3.0) APTT (25.3-37.0) SECONDS D-Dimer (215-500) ng/mL Sodium 135 L (137-145) mmol/L Potassium 4.1 (3.5-5.1) mmol/L Chloride 98 (98-107) mmol/L Carbon Dioxide 26 (22-30) mmol/L Anion Gap 14.7 (5-15) MEQ/L BUN 14 (7-17) mg/dL Creatinine 0.79 (0.52-1.04) mg/dL Estimated GFR > 60.0 ML/MIN Glucose 431 H (74-106) mg/dL Calcium 9.5 (8.4-10.2) mg/dL Total Bilirubin 0.60 (0.2-1.3) mg/dL AST 38 H (14-36) U/L ALT 43 H (0-35) U/L Alkaline Phosphatase 215 H (38-126) U/L Creatine Kinase 27 L (30-135) U/L Troponin I (0.000-0.034) ng/mL NT-Pro-B Natriuret Pep 45.7 (0-450) pg/mL Serum Total Protein 7.1 (6.3-8.2) g/dL Albumin 4.0 (3.5-5.0) g/dL Lipase 27 (23-300) U/L Urine Opiates Level (NEGATIVE) Ur Methadone (NEGATIVE) Urine Barbiturates (NEGATIVE) Ur Phencyclidine (PCP) (NEGATIVE) Urine Amphetamine (NEGATIVE) U Benzodiazepine Level (NEGATIVE) Urine Cocaine (NEGATIVE) Urine Marijuana (THC) (NEGATIVE) - Progress Progress: improved Air Movement: good Progress Note: 02/02/18 22:43 Pt was given NTG SL, became slightly hypotensive ( 90 syst), given 500 NS bolus iv and Morphine for her pain, 324 EC ASA also, improved. I called Dr Fang, discussed our results and her current condition, he agreed to admit her for observation. 02/02/18 22:45 Discussed with : Yang Will see patient in: hospital (observation) Counseled pt/family regarding: lab results, diagnosis - Departure Time of Disposition: 22:45 Departure Disposition: Observation Clinical Impression: Chest pain Qualifiers: Chest pain type: unspecified Qualified Code(s): R07.9 - Chest pain, unspecified Condition: Stable Critical Care Time: No Referrals: JENNYFER FANG MD [Primary Care Provider] - Instructions: Chest Pain (DC)
[2018-02-02 20:59] LABS: BASOPHIL % 0.5 % (0.0-0.4); Basophil (Absolute #) 0.04 (0-0.4); Eosinophil % 2.9 % (0.00-5.0); Eosinophil (Absolute #) 0.26 (0-0.5); Granulocyte Absolute (ANC) 5.48 (1.4-6.9); Granulocytes % 61.9 % (36.0-66.0); Hematocrit 40.8 % (35-47); Lymphocyte (Absolute #) 2.37 (1.0-4.6); Lymphocytes % 26.7 % (24.0-44.0); Mean Cell Volume 77.4 fl (78-100); Mean Corpuscular Hemoglobin 26.6 pg (26-32); Mean Corpuscular Hgb Concent. 34.3 g/dl (32-36); Mean Platelet Volume 11.1 fl (6-9.5); Monocyte (Absolute #) 0.71 (0.0-1.3); Platelet Count 278 K/mm3 (150-450); Red Blood Count 5.27 M/mm3 (4.1-5.4); Red Cell Distribution Width 16.4 % (11.5-14.0); White Blood Count 8.9 K/mm3 (4.0-10.5)
[2018-02-02 21:03] LABS: ALKALINE PHOSPHATASE 215 U/L (38-126); ANION GAP 14.7 MEQ/L (5-15); BLOOD UREA NITROGEN 14 mg/dL (7-17); CHLORIDE 98 mmol/L (98-107); CK-Creatinine Phosphokinase 27 U/L (30-135); Calcium 9.5 mg/dL (8.4-10.2); Carbon Dioxide 26 mmol/L (22-30); Creatinine 1 0.79 mg/dL (0.52-1.04); Glucose 431 mg/dL (74-106); LIPASE 27 U/L (23-300); Potassium 4.1 mmol/L (3.5-5.1); SGOT/AST 38 U/L (14-36); SGPT/ALT 43 U/L (0-35); SODIUM 135 mmol/L (137-145); Total Protein 7.1 g/dL (6.3-8.2)
[2018-02-02 21:04] LABS: INR 0.87 (0.8-3.0)
[2018-02-02 21:07] LABS: PTT 33.7 SECONDS (25.3-37.0)
[2018-02-02 21:11] LABS: NT PRO BNP 45.7 pg/mL (0-450)
[2018-02-02 21:15] LABS: D-DIMER QUANTITATION < 215 ng/mL (215-500)
[2018-02-02] MEDS ORDERED: Nitrostat 0.4 MG (ED) SL ONE ×2 (21:40→22:49)
[2018-02-02 21:49] LABS: Amphetamine,Urine NEGATIVE (NEGATIVE); Barbiturate,Urine NEGATIVE (NEGATIVE); Benzodiazepine,Urine NEGATIVE (NEGATIVE); Cocaine,Urine NEGATIVE (NEGATIVE); Methadone,Urine NEGATIVE (NEGATIVE); Opiate,Urine NEGATIVE (NEGATIVE); PCP,Urine NEGATIVE (NEGATIVE); THC,Urine NEGATIVE (NEGATIVE)
[2018-02-02] MEDS ORDERED: NovoLIN R SQ ONE (22:08)
[2018-02-02] MEDS ORDERED: Sodium Chloride 0.9% 500 ML 500 ML IV ONE ×2 (22:10→22:13)
[2018-02-02] MEDS ORDERED: NovoLIN R ONE (22:13)
[2018-02-02] MEDS ORDERED: Zofran 4 MG/2 ML VIAL IV ONE (22:19)
[2018-02-02] MEDS ORDERED: MORPHINE SULFATE 4 MG INJ IV ONE (22:19)
[2018-02-02] MEDS ORDERED: MORPHINE SULFATE 4 MG INJ ONE (22:25)
[2018-02-02] MEDS ORDERED: Zofran 4 MG/2 ML VIAL ONE (22:25)
[2018-02-02] MEDS ORDERED: Phenergan 25 MG INJ IM ONE (22:31)
[2018-02-02] MEDS ORDERED: Phenergan 25 MG INJ ONE (22:33)
[2018-02-02] MEDS ORDERED: Nitrostat 0.4 MG Tablet SL PRN (22:46)
[2018-02-02] MEDS ORDERED: MILK OF MAGNESIA 30 ML PO PRN (22:46)
[2018-02-02] MEDS ORDERED: MAALOX ES 30 ML UNIT DOSE PO PRN (22:46)
[2018-02-02] MEDS ORDERED: Senokot-S Tablet PO PRN (22:46)
[2018-02-02] MEDS ORDERED: TYLENOL 325 MG PO PRN (22:46)
[2018-02-02] MEDS: MORPHINE SULFATE 2 MG INJ IV PRN (23:54)
[2018-02-03] MEDS: MORPHINE SULFATE 2 MG INJ IV PRN ×6 (01:12→08:29)
[2018-02-03] MEDS: Phenergan 25 MG INJ IM PRN ×2 (05:27→20:01)
[2018-02-03 06:21] LABS: Cholesterol 148 mg/dL (50-200); HDL CHOLESTEROL 36 mg/dL (40-60); Risk Ratio 4.1; TRIGLYCERIDE 230 mg/dL (30-150)
[2018-02-03 06:33] LABS: LDL, DIRECT 72 mg/dL (30-100)
[2018-02-03] MEDS ORDERED: MORPHINE SULFATE 2 MG INJ ONE (06:44)
[2018-02-03 06:45] LABS: TROPONIN < 0.012 ng/mL (0.000-0.034)
[2018-02-03] MEDS: NovoLIN R SQ PRN ×3 (08:32→17:01)
--- NOTE | 2018-02-03 08:53 | XRAY ---
Indication: Chest pain. Comparison: September 02, 2017. Portable chest remains clear. Heart is not enlarged again with previous CABG surgery and left-sided Port-A-Cath. Bony thorax intact. No new/acute findings. Impression: Stable nonacute chest.
--- NOTE | 2018-02-03 09:01 | PCM.HP ---
History of Present Illness - Chief Complaint Chief Complaint: Chest pain rule out ACS History of Present Illness: is a 33 year old female with a history of CAD and CABG, sarcoidosis, type 1 diabetes who presented to the ER with chest pain. Pain began suddenly yesterday while mopping her floor at home. She has a history of CABG then required revision when sternotomy wires ruptured. Her pain is sharp and stabbing and radiates to the back, worse with cough or deep inspiration. no cough, no fever. - Review of Systems Constitutional: No Fever, No Chills Respiratory: No Cough, No Short Of Breath Cardiac: Chest Pain Abdominal/Gastrointestinal: No Abdominal Pain, No Nausea, No Vomiting, No Diarrhea Genitourinary Symptoms: No Dysuria Skin: No Rash All Other Systems: Reviewed and Negative Medications & Allergies Home Medications: Home Medication List Promethazine HCl 25 mg PO Q6HPRN PRN 03/22/14 [History Confirmed 02/02/18] Subcutaneous Insulin Pump [Insulin Pump] 1 each MC UD 03/22/14 [History Confirmed 02/02/18] Pregabalin [Lyrica 100Mg] 100 mg PO BID 12/23/15 [History Confirmed 02/02/18] Zolpidem Tartrate [Ambien] 10 mg PO HS #30 tablet 03/13/16 [Rx Confirmed ] Oxycodone HCl/Acetaminophen [Percocet 10-325 mg Tablet] 1 tablet PO Q4H PRN PRN #180 tablet 04/28/16 [Rx Confirmed 02/02/18] Atorvastatin Calcium [Lipitor] 80 mg PO DAILY 01/09/17 [History Confirmed ] SUMAtriptan succinate [Imitrex] 100 mg PO DAILY PRN PRN 04/21/17 [History Confirmed 02/02/18] Bupropion HCl [Wellbutrin] 150 mg PO BID 09/02/17 [History Confirmed 02/02/18] Clopidogrel Bisulfate [Clopidogrel] 75 mg PO DAILY 02/02/18 [History Confirmed 02/02/18] Desvenlafaxine Succinate [Pristiq] 100 mg PO DAILY 02/02/18 [History Confirmed 02/02/18] Isosorbide Mononitrate 30 mg [Imdur 30 MG] 30 mg PO DAILY 02/02/18 [ History Confirmed 02/02/18] Ranolazine 500 MG [Ranexa 500 MG] 500 mg PO BID 02/02/18 [History Confirmed 02/02/18] Allergies/Adverse Reactions: Allergies Allergy/AdvReac Type Severity Reaction Status Date / Time meperidine HCl [From Demerol] Allergy Mild Hives Verified 04/20/17 22:35 Penicillins Allergy Mild Rash Verified 04/20/17 22:35 propoxyphene napsylate Allergy Mild Hives Verified 04/20/17 22:35 [From Darvocet-N 100] levofloxacin [From Levaquin] Allergy IMMUNE TO Verified 04/20/17 22:35 IT ondansetron HCl [From Zofran] AdvReac Intermediate Nausea and Verified 04/20/17 22:35 Vomiting sulfamethoxazole AdvReac Verified 04/20/17 22:35 [From Bactrim] trimethoprim [From Bactrim] AdvReac Verified 04/20/17 22:35 - Past Medical History Past Medical History: Yes Neurological History: No Pertinent History ENT History: No Pertinent History Cardiac History: Congestive Heart Failure, Myocardial Infarction (AK) Respiratory History: CHF, Pulmonary Embolism, Other Endocrine Medical History: Diabetes Type I Musculoskelatal History: No Pertinent History GI Medical History: No Pertinent History History: No Pertinent History Pyscho-Social History: No Pertinent History Reproductive Disorders: No Pertinent History Comment: Sarcoidosis, slipped disc - Female History Are you now?: No - Past Surgical History Past Surgical History: Yes Neuro Surgical History: No Pertinent History Cardiac History: Cardiac Catheterization Respiratory Surgery: Other GI Surgical History: Cholecystectomy, Other Genitourinary Surgical Hx: No Pertinent History Musculskeletal Surgical Hx: No Pertinent History Female Surgical History: Hysterectomy, Section Other Surgical History: LYMP NODE AND LUNG BIOPSY,PORT, liver biopsy, nose repair, diverticulosis - Social History Smoking Status: Never smoker How long have you smoked: 1 Exposure to second hand smoke: No Alcohol: None Drug Use: none Significant Family History: no pertinent family hx - Physical Exam Vital Signs: Vital Signs - 24 hr Temp Pulse Pulse Resp BP Pulse Ox 02/03/18 08:00 94 L 02/03/18 07:24 97.8 F 78 16 86/43 94 L 02/03/18 04:00 96 02/03/18 03:48 98.0 F 96 H 17 114/69 96 02/03/18 01:25 97.9 F 93 H 17 115/68 96 02/02/18 21:50 119 H 16 99/76 98 02/02/18 21:05 101 H 20 136/75 95 02/02/18 20:15 105 H 100 H 18 131/77 100 General Appearance: no apparent distress, obese Neurologic Exam: alert, oriented x 3 Respiratory Exam: normal breath sounds, lungs clear, No respiratory distress Cardiovascular Exam: regular rate/rhythm, normal heart sounds, normal peripheral pulses Gastrointestinal/Abdomen Exam: soft, normal bowel sounds, No tenderness, No mass Extremity Exam: normal inspection, normal range of motion, pelvis stable Skin Exam: normal color, warm, dry, No rash Results - Labs Lab/Micro Results: Accuchecks Date 02/03/18 Date 02/03/18 Time 07:30 Time 01:15 Accucheck Value: 314 Accucheck Value: 255 Lab Results-Last 24 Hours 02/02/18 02/02/18 02/02/18 Range/Units 20:43 20:43 20:43 WBC 8.9 (4.0-10.5) K/mm3 RBC 5.27 (4.1-5.4) M/mm3 Hgb 14.0 (12.0-16.0) gm/dl Hct 40.8 (35-47) % MCV 77.4 L (78-100) fl MCH 26.6 (26-32) pg MCHC 34.3 (32-36) g/dl RDW 16.4 H (11.5-14.0) % Plt Count 278 (150-450) K/mm3 MPV 11.1 H (6-9.5) fl Gran % 61.9 (36.0-66.0) % Eos # (Auto) 0.26 (0-0.5) Absolute Lymphs (auto) 2.37 (1.0-4.6) Absolute Monos (auto) 0.71 (0.0-1.3) Lymphocytes % 26.7 (24.0-44.0) % Monocytes % 8.0 (0.0-12.0) % Eosinophils % 2.9 (0.00-5.0) % Basophils % 0.5 (0.0-0.4) % Absolute Granulocytes 5.48 (1.4-6.9) Basophils # 0.04 (0-0.4) PT 10.1 (9.95-12.35) SECONDS INR 0.87 (0.8-3.0) APTT 33.7 (25.3-37.0) SECONDS D-Dimer < 215 L (215-500) ng/mL Sodium 135 L (137-145) mmol/L Potassium 4.1 (3.5-5.1) mmol/L Chloride 98 (98-107) mmol/L Carbon Dioxide 26 (22-30) mmol/L Anion Gap 14.7 (5-15) MEQ/L BUN 14 (7-17) mg/dL Creatinine 0.79 (0.52-1.04) mg/dL Estimated GFR > 60.0 ML/MIN Glucose 431 H (74-106) mg/dL Calcium 9.5 (8.4-10.2) mg/dL Total Bilirubin 0.60 (0.2-1.3) mg/dL AST 38 H (14-36) U/L ALT 43 H (0-35) U/L Alkaline Phosphatase 215 H (38-126) U/L Creatine Kinase 27 L (30-135) U/L Troponin I (0.000-0.034) ng/mL NT-Pro-B Natriuret Pep 45.7 (0-450) pg/mL Serum Total Protein 7.1 (6.3-8.2) g/dL Albumin 4.0 (3.5-5.0) g/dL Triglycerides (30-150) mg/dL Cholesterol (50-200) mg/dL LDL Cholesterol (30-100) mg/dL HDL Cholesterol (40-60) mg/dL Heart Disease Risk Ratio Lipase 27 (23-300) U/L Urine Opiates Level (NEGATIVE) Ur Methadone (NEGATIVE) Urine Barbiturates (NEGATIVE) Ur Phencyclidine (PCP) (NEGATIVE) Urine Amphetamine (NEGATIVE) U Benzodiazepine Level (NEGATIVE) Urine Cocaine (NEGATIVE) Urine Marijuana (THC) (NEGATIVE) 02/02/18 02/02/18 02/02/18 Range/Units 20:43 21:30 23:55 WBC (4.0-10.5) K/mm3 RBC (4.1-5.4) M/mm3 Hgb (12.0-16.0) gm/dl Hct (35-47) % MCV (78-100) fl MCH (26-32) pg MCHC (32-36) g/dl RDW (11.5-14.0) % Plt Count (150-450) K/mm3 MPV (6-9.5) fl Gran % (36.0-66.0) % Eos # (Auto) (0-0.5) Absolute Lymphs (auto) (1.0-4.6) Absolute Monos (auto) (0.0-1.3) Lymphocytes % (24.0-44.0) % Monocytes % (0.0-12.0) % Eosinophils % (0.00-5.0) % Basophils % (0.0-0.4) % Absolute Granulocytes (1.4-6.9) Basophils # (0-0.4) PT (9.95-12.35) SECONDS INR (0.8-3.0) APTT (25.3-37.0) SECONDS D-Dimer (215-500) ng/mL Sodium (137-145) mmol/L Potassium (3.5-5.1) mmol/L Chloride (98-107) mmol/L Carbon Dioxide (22-30) mmol/L Anion Gap (5-15) MEQ/L BUN (7-17) mg/dL Creatinine (0.52-1.04) mg/dL Estimated GFR ML/MIN Glucose (74-106) mg/dL Calcium (8.4-10.2) mg/dL Total Bilirubin (0.2-1.3) mg/dL AST (14-36) U/L ALT (0-35) U/L Alkaline Phosphatase (38-126) U/L Creatine Kinase (30-135) U/L Troponin I < 0.012 < 0.012 (0.000-0.034) ng/mL NT-Pro-B Natriuret Pep (0-450) pg/mL Serum Total Protein (6.3-8.2) g/dL Albumin (3.5-5.0) g/dL Triglycerides (30-150) mg/dL Cholesterol (50-200) mg/dL LDL Cholesterol (30-100) mg/dL HDL Cholesterol (40-60) mg/dL Heart Disease Risk Ratio Lipase (23-300) U/L Urine Opiates Level NEGATIVE (NEGATIVE) Ur Methadone NEGATIVE (NEGATIVE) Urine Barbiturates NEGATIVE (NEGATIVE) Ur Phencyclidine (PCP) NEGATIVE (NEGATIVE) Urine Amphetamine NEGATIVE (NEGATIVE) U Benzodiazepine Level NEGATIVE (NEGATIVE) Urine Cocaine NEGATIVE (NEGATIVE) Urine Marijuana (THC) NEGATIVE (NEGATIVE) 02/03/18 02/03/18 Range/Units 02:42 05:27 WBC (4.0-10.5) K/mm3 RBC (4.1-5.4) M/mm3 Hgb (12.0-16.0) gm/dl Hct (35-47) % MCV (78-100) fl MCH (26-32) pg MCHC (32-36) g/dl RDW (11.5-14.0) % Plt Count (150-450) K/mm3 MPV (6-9.5) fl Gran % (36.0-66.0) % Eos # (Auto) (0-0.5) Absolute Lymphs (auto) (1.0-4.6) Absolute Monos (auto) (0.0-1.3) Lymphocytes % (24.0-44.0) % Monocytes % (0.0-12.0) % Eosinophils % (0.00-5.0) % Basophils % (0.0-0.4) % Absolute Granulocytes (1.4-6.9) Basophils # (0-0.4) PT (9.95-12.35) SECONDS INR (0.8-3.0) APTT (25.3-37.0) SECONDS D-Dimer (215-500) ng/mL Sodium (137-145) mmol/L Potassium (3.5-5.1) mmol/L Chloride (98-107) mmol/L Carbon Dioxide (22-30) mmol/L Anion Gap (5-15) MEQ/L BUN (7-17) mg/dL Creatinine (0.52-1.04) mg/dL Estimated GFR ML/MIN Glucose (74-106) mg/dL Calcium (8.4-10.2) mg/dL Total Bilirubin (0.2-1.3) mg/dL AST (14-36) U/L ALT (0-35) U/L Alkaline Phosphatase (38-126) U/L Creatine Kinase (30-135) U/L Troponin I < 0.012 < 0.012 (0.000-0.034) ng/mL NT-Pro-B Natriuret Pep (0-450) pg/mL Serum Total Protein (6.3-8.2) g/dL Albumin (3.5-5.0) g/dL Triglycerides 230 H (30-150) mg/dL Cholesterol 148 (50-200) mg/dL LDL Cholesterol 72 (30-100) mg/dL HDL Cholesterol 36 L (40-60) mg/dL Heart Disease Risk Ratio 4.1 Lipase (23-300) U/L Urine Opiates Level (NEGATIVE) Ur Methadone (NEGATIVE) Urine Barbiturates (NEGATIVE) Ur Phencyclidine (PCP) (NEGATIVE) Urine Amphetamine (NEGATIVE) U Benzodiazepine Level (NEGATIVE) Urine Cocaine (NEGATIVE) Urine Marijuana (THC) (NEGATIVE) Accuchecks Date 02/03/18 Date 02/03/18 Time 07:30 Time 01:15 Accucheck Value: 314 Accucheck Value: 255 - Radiology Impressions Radiology Exams & Impressions: Radiology Procedures Category Date Time Status CHEST 1 VIEW (PORTABLE) Stat Exams 02/02/18 20:21 Completed - Other Procedures and Tests Respiratory Therapy 02/04/18 05:00 EKG DAILY 02/05/18 05:00 EKG DAILY 02/06/18 05:00 EKG DAILY Assessment/Plan (1) Chest pain Current Visit: Yes Status: Acute Qualifiers: Chest pain type: unspecified Qualified Code(s): R07.9 - Chest pain, unspecified Assessment & Plan: will continue to r/o AK although symptoms sound noncardiac, will get ct chest to r/o sternotomy issues. Code(s): R07.9 - CHEST PAIN, UNSPECIFIED (2) Hyperglycemia due to type 1 diabetes mellitus Current Visit: No Status: Acute Assessment & Plan: on insulin pump Code(s): E10.65 - TYPE 1 DIABETES MELLITUS WITH HYPERGLYCEMIA (3) Sarcoidosis Current Visit: No Status: Chronic Code(s): D86.9 - SARCOIDOSIS, UNSPECIFIED
[2018-02-03] MEDS ORDERED: NON-FORMULARY ITEM (Sumatriptan Succinate [Imitrex] 100 MG) PO PRN (09:19)
[2018-02-03] MEDS: Ecotrin 325 MG PO SCH (09:23)
[2018-02-03] MEDS ORDERED: SUBCUTANEOUS INSULIN PUMP MC SCH (09:30)
[2018-02-03] MEDS: TORAdol 30 mg Injection IV PRN ×2 (09:30→20:06)
[2018-02-03] MEDS ORDERED: NON-FORMULARY ITEM (Bupropion Hcl [Wellbutrin] 150 mg) PO SCH (10:00)
[2018-02-03] MEDS ORDERED: MEDICATION INTERVENTION MC SCH (10:00)
[2018-02-03] MEDS: BENADRYL 25 MG CAPSULE PO PRN ×3 (10:26→23:10)
[2018-02-03] MEDS: Imdur 30 MG PO SCH (11:34)
[2018-02-03] MEDS: PLAVIX 75 MG Tablet PO SCH (11:35)
[2018-02-03] MEDS: Wellbutrin SR 150 MG PO SCH ×2 (11:35→23:10)
[2018-02-03] MEDS: LYRICA 100MG PO SCH ×2 (11:35→23:09)
[2018-02-03] MEDS: PRISTIQ ER PO SCH (11:35)
[2018-02-03] MEDS: OXYCODONE-ACETAMINOPHEN 10-325 PO PRN ×3 (11:35→23:10)
[2018-02-03] MEDS: Ranexa 500 MG PO SCH ×2 (11:35→23:09)
[2018-02-03] MEDS: MORPHINE SULFATE 4 MG INJ IV PRN ×3 (12:41→21:49)
--- NOTE | 2018-02-03 13:40 | XRAY ---
Indication: Chest pain. Short of breath while walking. Nausea. Multiple contiguous axial images obtained through the chest using 80 cc Isovue 370 contrast and PE protocol. Comparison: December 13, 2017. There is satisfactory opacification of the pulmonary arteries to include the lobar and segmental branches. No filling defect or pulmonary embolus. Heart is not enlarged again with CABG surgery and left-sided Port-A-Cath. Aorta is normal in course and caliber. Previous subcarinal adenopathy appears much smaller. No pathologic mediastinal/hilar lymphadenopathy. Examination of the lung parenchyma again demonstrates minimal bilateral dependent atelectasis and minimal medial left upper lobe fibrosis/scarring. No suspicious pulmonary mass, infiltrate, or effusion. Bony thorax intact again with sternotomy wires and several small bilateral axillary lymph nodes. Limited upper abdomen again demonstrates fatty liver and cholecystectomy clips. Impression: 1. Negative pulmonary embolus. 2. Interval diminished subcarinal lymph node. Negative pathologic lymphadenopathy. 3. No new/acute cardiopulmonary abnormalities. 4. Stable fatty liver. CT DI 23.66
[2018-02-03] MEDS ORDERED: Ambien 10 MG PO SCH (22:00)
[2018-02-03] MEDS ORDERED: Ecotrin 325 MG PO ONE (22:44)
[2018-02-04] MEDS: MORPHINE SULFATE 4 MG INJ IV PRN ×2 (02:18→06:42)
[2018-02-04 05:57] LABS: BASOPHIL % 0.4 % (0.0-0.4); Basophil (Absolute #) 0.02 (0-0.4); Eosinophil % 4.1 % (0.00-5.0); Eosinophil (Absolute #) 0.23 (0-0.5); Granulocyte Absolute (ANC) 3.36 (1.4-6.9); Granulocytes % 59.4 % (36.0-66.0); Hematocrit 37.3 % (35-47); Hemoglobin 12.1 gm/dl (12.0-16.0); Lymphocyte (Absolute #) 1.51 (1.0-4.6); Lymphocytes % 26.7 % (24.0-44.0); Mean Cell Volume 81.3 fl (78-100); Mean Corpuscular Hemoglobin 26.4 pg (26-32); Mean Corpuscular Hgb Concent. 32.4 g/dl (32-36); Mean Platelet Volume 11.4 fl (6-9.5); Monocyte (Absolute #) 0.53 (0.0-1.3); Monocytes % 9.4 % (0.0-12.0); Platelet Count 209 K/mm3 (150-450); Red Blood Count 4.59 M/mm3 (4.1-5.4); Red Cell Distribution Width 16.8 % (11.5-14.0); White Blood Count 5.7 K/mm3 (4.0-10.5)
[2018-02-04 06:09] LABS: ALBUMIN 3.7 g/dL (3.5-5.0); ALKALINE PHOSPHATASE 183 U/L (38-126); ANION GAP 12.1 MEQ/L (5-15); BLOOD UREA NITROGEN 24 mg/dL (7-17); CHLORIDE 100 mmol/L (98-107); Calcium 8.9 mg/dL (8.4-10.2); Carbon Dioxide 32 mmol/L (22-30); Creatinine 1 0.96 mg/dL (0.52-1.04); Glucose 277 mg/dL (74-106); Potassium 4.8 mmol/L (3.5-5.1); SGOT/AST 158 U/L (14-36); SGPT/ALT 108 U/L (0-35); SODIUM 139 mmol/L (137-145); Total Protein 6.5 g/dL (6.3-8.2)
[2018-02-04] MEDS: BENADRYL 25 MG CAPSULE PO PRN (07:05)
[2018-02-04] MEDS: OXYCODONE-ACETAMINOPHEN 10-325 PO PRN (07:05)
[2018-02-04 07:11] VITALS: BP 115/78; PULSE 97; O2SAT 99
[2018-02-04] MEDS: NovoLIN R SQ PRN (07:49)
--- NOTE | 2018-02-04 08:52 | PCM.DCORD ---
- Discharge Discharge Date: 02/04/18 Prescriptions: New Morphine Sulfate Ir 15 mg [Msir 15 mg] 15 mg PO Q4H PRN #28 tablet MDD 4 PRN Reason: Pain Continue Promethazine HCl 25 mg PO Q6HPRN PRN PRN Reason: Nausea Subcutaneous Insulin Pump [Insulin Pump] 1 each MC UD Pregabalin [Lyrica 100Mg] 100 mg PO BID Zolpidem Tartrate [Ambien] 10 mg PO HS #30 tablet Oxycodone HCl/Acetaminophen [Percocet 10-325 mg Tablet] 1 tablet PO Q4H PRN PRN #180 tablet PRN Reason: Pain Atorvastatin Calcium [Lipitor] 80 mg PO DAILY SUMAtriptan succinate [Imitrex] 100 mg PO DAILY PRN PRN PRN Reason: migraine Bupropion HCl [Wellbutrin] 150 mg PO BID Ranolazine 500 MG [Ranexa 500 MG] 500 mg PO BID Desvenlafaxine Succinate [Pristiq] 100 mg PO DAILY Isosorbide Mononitrate 30 mg [Imdur 30 MG] 30 mg PO DAILY Clopidogrel Bisulfate [Clopidogrel] 75 mg PO DAILY Instructions: Angina, Heart Healthy Diet Follow up with: JENNYFER FANG MD [Primary Care Provider] - 02/18/18 2:15 pm Forms: Discharge Instructions, Patient Portal Information
[2018-02-04] MEDS: LYRICA 100MG PO SCH (09:01)
[2018-02-04] MEDS: TORAdol 30 mg Injection IV PRN (09:01)
[2018-02-04] MEDS: Wellbutrin SR 150 MG PO SCH (09:02)
[2018-02-04] MEDS: Ranexa 500 MG PO SCH (09:02)
[2018-02-04] MEDS: Ecotrin 325 MG PO SCH (09:02)
[2018-02-04] MEDS: Imdur 30 MG PO SCH (09:02)
[2018-02-04] MEDS: PRISTIQ ER PO SCH (09:02)
[2018-02-04] MEDS: PLAVIX 75 MG Tablet PO SCH (09:02)
--- NOTE | 2018-02-08 09:52 | SSS ---
DISCHARGE DIAGNOSES: 1) CHEST PAIN. 2) HISTORY OF CORONARY ARTERY DISEASE. 3) HISTORY OF SARCOIDOSIS. HOSPITAL COURSE: The patient is a 33 year-old white female who presented to the emergency room and subsequently admitted to the hospital for rule out myocardial infarction. The patient apparently at age 33 has already had coronary artery bypass graft of two vessels. The patient reports they had to go back in her chest later due to nonhealing of sternotomy. The patient also reports that she sees Dr. Mendosa for problems with sarcoidosis. The patient during her hospital stay ruled out for myocardial infarction with all of her troponins less than 0.012. The patient did continue to complain of chest pain and took IV morphine every four hours on a routine basis as well as Percocet. The patient also had a CT scan which showed that her lymph nodes had actually diminished in size from the sarcoidosis over the previous evaluations. The patient was no longer receiving any active treatment otherwise having ruled out for myocardial infarction and improvement of her sarcoidosis. She was felt to no longer require any hospital management at this time. Due to the patient's complaints of pain and using so much narcotics we had a discussion with her about the concern for my concern for addiction issues. The patient became angry about this and thought that we would just consider her to be a drug user. We assured her that this is not the case that however we have no reason to keep her having ruled out for any acute process. We suggested that we would give her oral MSIR for control of her pain until she can see her regular physician again in the office. She will also have Percocet to use for break through pain as well. We cautioned her about taking them together and the problem of [employer] depression. The patient verbalized her understanding. She was discharged home with follow up to see her regular doctor in the next week. She does have a customer success advocate that she follows at the [facility] as well as Dr. Mendosa in [place] for pulmonary condition. She was instructed to return to the emergency room if she has further problems in the interim or if she has worsening in chest pain, shortness of breath or other symptoms that she had any concerns about.
== END 2018-02-04 09:15 | disposition home or self-care (01) ==
LOC: ED 20:15 → MED SURG 23:35
PROVIDERS: ADMIT Family Medicine; ATTEND Family Medicine
DX: R07.9 Chest pain, unspecified (principal); I25.810 Atherosclerosis of coronary artery bypass graft(s) without angina pectoris; E10.65 Type 1 diabetes mellitus with hyperglycemia; D86.9 Sarcoidosis, unspecified; Z79.899 Other long term (current) drug therapy; I50.9 Heart failure, unspecified; I25.2 Old myocardial infarction; Z86.711 Personal history of pulmonary embolism
CPT/HCPCS: 36000; 36415; 71045; 71260; 80053; 80061; 80307; 82550; 83036; 83690; 83721; 83880; 84484; 85025; 85379; 85610; 85730; 93005; 93041; 93268; 96360; 96372; 96374; 96375; 99284; J1642; J1885; J2270; J2405; J2550; A9270-GY; G0378

== ENCOUNTER 2018-02-09 01:51 | Emergency (ER) | payer MEDICARE ==
[2018-02-09] MEDS ORDERED: PROTONIX 40 MG IV IV ONE ×2 (02:23→02:36)
[2018-02-09] MEDS ORDERED: Sodium Chloride 0.9% 1000 ML 1,000 ML IV STA (02:23)
[2018-02-09 02:34] LABS: BASOPHIL % 0.4 % (0.0-0.4); Basophil (Absolute #) 0.02 (0-0.4); Eosinophil (Absolute #) 0.26 (0-0.5); Granulocyte Absolute (ANC) 2.27 (1.4-6.9); Granulocytes % 43.4 % (36.0-66.0); Hematocrit 34.6 % (35-47); Hemoglobin 11.3 gm/dl (12.0-16.0); Lymphocyte (Absolute #) 1.95 (1.0-4.6); Lymphocytes % 37.4 % (24.0-44.0); Mean Corpuscular Hgb Concent. 32.7 g/dl (32-36); Mean Platelet Volume 10.8 fl (6-9.5); Monocyte (Absolute #) 0.72 (0.0-1.3); Monocytes % 13.8 % (0.0-12.0); Platelet Count 165 K/mm3 (150-450); Red Blood Count 4.22 M/mm3 (4.1-5.4); Red Cell Distribution Width 16.7 % (11.5-14.0); White Blood Count 5.2 K/mm3 (4.0-10.5)
[2018-02-09 02:35] LABS: Mean Corpuscular Hemoglobin 26.7 pg (26-32)
[2018-02-09] MEDS ORDERED: Sodium Chloride 0.9% 1000 ML 1,000 ML ONE (02:36)
[2018-02-09] MEDS ORDERED: Zofran 4 MG/2 ML VIAL ONE (02:36)
[2018-02-09] MEDS: Zofran 4 MG/2 ML VIAL IV ONE ×2 (02:42→02:54)
--- NOTE | 2018-02-09 02:42 | ERPHSYRPT ---
- History of Present Illness Time Seen by Provider: 02/09/18 02:32 Historian: patient Exam Limitations: no limitations Patient Subjective Stated Complaint: pt states she was seen at [facility] and was admitted for a gi bleed. states she signed out because her doctors are here. Triage Nursing Assessment: pt alert and oriented, asnwers questions approp. pt ambulatory with steady gait noted. pt tearful at times. holding abd and rocking in bed. abd soft, pt states tender to palpation. bowel sounds present. Physician History: Pt started c/o diffuse abdominal pain, cramps yesterday afternoon, after having one episode of normal bowel movement she apparently passed a large amount of blood. She was seen in [facility] ED and admitted with lower GI bleeding, scheduled for colonoscopy tomorrow. She denies vomiting, or fever, chills, however nauseated. After she was admitted to [facility], she was requesting pain medication, since she did not get the dose she wanted, she requested to be transferred here. Apparently they denied it, she was told to check out AMA, and have her drive her here to be admitted here. She checked out AMA, and was transported here by her . She is bending forward in pain and grimacing. After reviewing the documentation sent from [facility], her H/H 10.8/34, BUN/creat: 8.8/0.8, rectal exam revealed mildly tender anal opening, heme positive stool, blood streaks in the stool, stool color was normal. Timing/Duration: yesterday Activities at Onset: none Quality: cramping Abdominal Pain Onset Location: generalized abdomen Pain Radiation: no radiation Severity of Pain-Max: severe Severity of Pain-Current: severe Modifying Factors: Improves With: nothing Associated Symptoms: nausea, other (hematochezia) Previous symptoms: no prior history Allergies/Adverse Reactions: meperidine HCl [From Demerol] Allergy (Mild, Verified 02/09/18 02:13) Hives Penicillins Allergy (Mild, Verified 02/09/18 02:13) Rash propoxyphene napsylate [From Darvocet-N 100] Allergy (Mild, Verified 02/09/18 02 :13) Hives levofloxacin [From Levaquin] Allergy (Verified 02/09/18 02:13) IMMUNE TO IT ondansetron HCl [From Zofran] Adverse Reaction (Intermediate, Verified 02/09/18 02:13) Nausea and Vomiting morphine Adverse Reaction (Verified 02/09/18 02:13) sulfamethoxazole [From Bactrim] Adverse Reaction (Verified 02/09/18 02:13) trimethoprim [From Bactrim] Adverse Reaction (Verified 02/09/18 02:13) Home Medications: Promethazine HCl 25 mg PO Q6HPRN PRN 03/22/14 [History] Subcutaneous Insulin Pump [Insulin Pump] 1 each MC UD 03/22/14 [History] Pregabalin [Lyrica 100Mg] 100 mg PO BID 12/23/15 [History] Atorvastatin Calcium [Lipitor] 80 mg PO DAILY 01/09/17 [History] SUMAtriptan succinate [Imitrex] 100 mg PO DAILY PRN PRN 04/21/17 [History] Bupropion HCl [Wellbutrin] 150 mg PO BID 09/02/17 [History] Clopidogrel Bisulfate [Clopidogrel] 75 mg PO DAILY 02/02/18 [History] Desvenlafaxine Succinate [Pristiq] 100 mg PO DAILY 02/02/18 [History] Isosorbide Mononitrate 30 mg [Imdur 30 MG] 30 mg PO DAILY 02/02/18 [History ] Ranolazine 500 MG [Ranexa 500 MG] 500 mg PO BID 02/02/18 [History] Hx Tetanus, Diphtheria Vaccination/Date Given: Yes Hx Influenza Vaccination/Date Given: No Hx Pneumococcal Vaccination/Date Given: No Immunizations Up to Date: Yes - Review of Systems Constitutional: No Symptoms Abdominal/Gastrointestinal: Abdominal Pain, Nausea, Hematochezia All Other Systems: Reviewed and Negative - Past Medical History Pertinent Past Medical History: Yes Neurological History: No Pertinent History ENT History: No Pertinent History Cardiac History: Congestive Heart Failure, Myocardial Infarction ([place]) Respiratory History: CHF, Pulmonary Embolism, Other Endocrine Medical History: Diabetes Type I Musculoskeletal History: No Pertinent History GI Medical History: No Pertinent History History: No Pertinent History Psycho-Social History: No Pertinent History Female Reproductive Disorders: No Pertinent History Other Medical History: Sarcoidosis, slipped disc - Past Surgical History Past Surgical History: Yes Neuro Surgical History: No Pertinent History Cardiac: Cardiac Catheterization Respiratory: Other Gastrointestinal: Cholecystectomy, Other Genitourinary: No Pertinent History Musculoskeletal: No Pertinent History Female Surgical History: Hysterectomy, Section Other Surgical History: LYMP NODE AND LUNG BIOPSY,PORT, liver biopsy, nose repair, diverticulosis. cabg- double bypass - Social History Smoking Status: Former smoker How long have you smoked: 1 Exposure to second hand smoke: No Alcohol Use: None Drug Use: none Patient Lives Alone: No Significant Family History: no pertinent family hx - Female History Hx Last Menstrual Period: hyster Hx Now: No - Nursing Vital Signs Nursing Vital Signs: Initial Vital Signs Temperature 97.6 F 02/09/18 01:59 Pulse Rate 96 H 02/09/18 01:59 Respiratory Rate 20 02/09/18 01:59 O2 Sat by Pulse Oximetry 99 02/09/18 01:59 Pain Scale Pain Intensity 7 - Physical Exam General Appearance: no apparent distress Eye Exam: eyes nml inspection Ears, Nose, Throat Exam: normal ENT inspection, moist mucous membranes Neck Exam: normal inspection, non-tender, supple Respiratory Exam: normal breath sounds, lungs clear, airway intact Cardiovascular Exam: regular rate/rhythm, normal heart sounds, normal peripheral pulses, No murmur Gastrointestinal/Abdomen Exam: soft, normal bowel sounds, tenderness (diffuse mild, ), No distention, No mass, No guarding, No ecchymosis, No pulsatile mass, No rebound, No hernia, No organomegaly Rectal Exam: deferred Extremity Exam: normal inspection Neurologic Exam: alert, oriented x 3, normal mood/affect Skin Exam: normal color, warm, dry, No rash Lymphatic Exam: No adenopathy SpO2 Interpretation: normal SpO2: 99 Oxygen Delivery: Room Air - Course Nursing assessment & vital signs reviewed: Yes - CT Exams Abdomen/Pelvis CT Interpretation: Tele-radiologist Report, Other (constipation, possible mild colitis, ) Ordered Tests: Active Orders 24 hr Category Date Time Status IV Insertion STAT Care 02/09/18 02:23 Active NPO (ED) STAT Care 02/09/18 02:23 Active Orthostatic Vital Signs STAT Care 02/09/18 02:26 Active ABDOMEN AND PELVIS W/0 CONTRAS [CT] Stat Exams 02/09/18 02:31 Taken CBC W DIFF Stat Lab 02/09/18 02:30 Completed CMP Stat Lab 02/09/18 02:30 Completed CULTURE,URINE Stat Lab 02/09/18 03:17 Received LIPASE Stat Lab 02/09/18 02:50 Completed Occult Blood,Stool Other Stat Lab 02/09/18 02:24 Uncollected PROTIME WITH INR Stat Lab 02/09/18 02:30 Completed PTT Stat Lab 02/09/18 02:30 Completed UA W/ MICROSCOPIC Stat Lab 02/09/18 03:17 Completed Urine Triage Profile Stat Lab 02/09/18 03:17 Completed Medication Summary Discontinued Medications Generic Name Dose Route Start Last Admin Trade Name Cristobal PRN Reason Stop Dose Admin Sodium Chloride 1,000 mls @ 999 mls/hr 02/09/18 02:23 02/09/18 02:42 Sodium Chloride 0.9% 1000 Ml IV 02/09/18 03:23 999 mls/hr .Q1H1M STA Administration Sodium Chloride Confirm 02/09/18 02:36 Sodium Chloride 0.9% 1000 Ml Administered 02/09/18 02:37 Dose 1,000 mls @ ud .ROUTE .STK-MED ONE Metoclopramide HCl 10 mg 02/09/18 02:51 02/09/18 02:59 Reglan 10 Mg/2 Ml IV 02/09/18 02:52 10 mg STAT ONE Administration Metoclopramide HCl Confirm 02/09/18 02:54 Reglan 10 Mg/2 Ml Administered 02/09/18 02:55 Dose 10 mg .ROUTE .STK-MED ONE Ondansetron HCl 4 mg 02/09/18 02:23 02/09/18 02:54 Zofran 4 Mg/2 Ml Vial IV 02/09/18 02:24 Not Given STAT ONE Ondansetron HCl Confirm 02/09/18 02:36 Zofran 4 Mg/2 Ml Vial Administered 02/09/18 02:37 Dose 4 mg .ROUTE .STK-MED ONE Pantoprazole Sodium 40 mg 02/09/18 02:23 02/09/18 02:41 Protonix 40 Mg Iv IV 02/09/18 02:24 40 mg STAT ONE Administration Pantoprazole Sodium Confirm 02/09/18 02:36 Protonix 40 Mg Iv Administered 02/09/18 02:37 Dose 40 mg IV .STK-MED ONE Lab/Rad Data: Laboratory Result Diagrams 02/09/18 02:30 02/09/18 02:30 Laboratory Results 02/09/18 02/09/18 02/09/18 Range/Units 03:17 03:17 02:50 WBC (4.0-10.5) K/mm3 RBC (4.1-5.4) M/mm3 Hgb (12.0-16.0) gm/dl Hct (35-47) % MCV (78-100) fl MCH (26-32) pg MCHC (32-36) g/dl RDW (11.5-14.0) % Plt Count (150-450) K/mm3 MPV (6-9.5) fl Gran % (36.0-66.0) % Eos # (Auto) (0-0.5) Absolute Lymphs (auto) (1.0-4.6) Absolute Monos (auto) (0.0-1.3) Lymphocytes % (24.0-44.0) % Monocytes % (0.0-12.0) % Eosinophils % (0.00-5.0) % Basophils % (0.0-0.4) % Absolute Granulocytes (1.4-6.9) Basophils # (0-0.4) PT (9.95-12.35) SECONDS INR (0.8-3.0) APTT (25.3-37.0) SECONDS Sodium (137-145) mmol/L Potassium (3.5-5.1) mmol/L Chloride (98-107) mmol/L Carbon Dioxide (22-30) mmol/L Anion Gap (5-15) MEQ/L BUN (7-17) mg/dL Creatinine (0.52-1.04) mg/dL Estimated GFR ML/MIN Glucose (74-106) mg/dL Calcium (8.4-10.2) mg/dL Total Bilirubin (0.2-1.3) mg/dL AST (14-36) U/L ALT (0-35) U/L Alkaline Phosphatase (38-126) U/L Serum Total Protein (6.3-8.2) g/dL Albumin (3.5-5.0) g/dL Lipase 22 L (23-300) U/L Ur Collection Type CLEAN CATCH Urine Color YELLOW (YELLOW) Urine Appearance HAZY (CLEAR) Urine pH 7.0 (5-6) Ur Specific Channing 1.010 (1.005-1.025) Urine Protein NEGATIVE (Negative) Urine Ketones NEGATIVE (NEGATIVE) Urine Blood NEGATIVE (0-5) Zain/ul Urine Nitrite POSITIVE (NEGATIVE) Urine Bilirubin NEGATIVE (NEGATIVE) Urine Urobilinogen NORMAL (0-1) mg/dL Ur Leukocyte Esterase TRACE (NEGATIVE) Urine Microscopic WBC 2-5 (0-5) /HPF Ur Epithelial Cells FEW (FEW) /HPF Urine Bacteria MODERATE (NEGATIVE) /HPF Urine Culture Reflexed YES (NO) Urine Glucose 1000 (NEGATIVE) mg/dL Urine Opiates Level POSITIVE (NEGATIVE) Ur Methadone NEGATIVE (NEGATIVE) Urine Barbiturates NEGATIVE (NEGATIVE) Ur Phencyclidine (PCP) NEGATIVE (NEGATIVE) Urine Amphetamine NEGATIVE (NEGATIVE) U Benzodiazepine Level NEGATIVE (NEGATIVE) Urine Cocaine NEGATIVE (NEGATIVE) Urine Marijuana (THC) NEGATIVE (NEGATIVE) Specimen Received 02/09/18 0315 ABO Group Rh Factor Antibody Screen (NEGATIVE) 02/09/18 02/09/18 02/09/18 Range/Units 02:50 02:30 02:30 WBC (4.0-10.5) K/mm3 RBC (4.1-5.4) M/mm3 Hgb (12.0-16.0) gm/dl Hct (35-47) % MCV (78-100) fl MCH (26-32) pg MCHC (32-36) g/dl RDW (11.5-14.0) % Plt Count (150-450) K/mm3 MPV (6-9.5) fl Gran % (36.0-66.0) % Eos # (Auto) (0-0.5) Absolute Lymphs (auto) (1.0-4.6) Absolute Monos (auto) (0.0-1.3) Lymphocytes % (24.0-44.0) % Monocytes % (0.0-12.0) % Eosinophils % (0.00-5.0) % Basophils % (0.0-0.4) % Absolute Granulocytes (1.4-6.9) Basophils # (0-0.4) PT 10.4 (9.95-12.35) SECONDS INR 0.90 (0.8-3.0) APTT 80.2 H (25.3-37.0) SECONDS Sodium 140 (137-145) mmol/L Potassium 3.7 (3.5-5.1) mmol/L Chloride 104 (98-107) mmol/L Carbon Dioxide 28 (22-30) mmol/L Anion Gap 11.6 (5-15) MEQ/L BUN 8 (7-17) mg/dL Creatinine 0.67 (0.52-1.04) mg/dL Estimated GFR > 60.0 ML/MIN Glucose 140 H (74-106) mg/dL Calcium 8.7 (8.4-10.2) mg/dL Total Bilirubin 0.40 (0.2-1.3) mg/dL AST 64 H (14-36) U/L ALT 188 H (0-35) U/L Alkaline Phosphatase 237 H (38-126) U/L Serum Total Protein 6.4 (6.3-8.2) g/dL Albumin 3.6 (3.5-5.0) g/dL Lipase (23-300) U/L Ur Collection Type Urine Color (YELLOW) Urine Appearance (CLEAR) Urine pH (5-6) Ur Specific Channing (1.005-1.025) Urine Protein (Negative) Urine Ketones (NEGATIVE) Urine Blood (0-5) Zain/ul Urine Nitrite (NEGATIVE) Urine Bilirubin (NEGATIVE) Urine Urobilinogen (0-1) mg/dL Ur Leukocyte Esterase (NEGATIVE) Urine Microscopic WBC (0-5) /HPF Ur Epithelial Cells (FEW) /HPF Urine Bacteria (NEGATIVE) /HPF Urine Culture Reflexed (NO) Urine Glucose (NEGATIVE) mg/dL Urine Opiates Level (NEGATIVE) Ur Methadone (NEGATIVE) Urine Barbiturates (NEGATIVE) Ur Phencyclidine (PCP) (NEGATIVE) Urine Amphetamine (NEGATIVE) U Benzodiazepine Level (NEGATIVE) Urine Cocaine (NEGATIVE) Urine Marijuana (THC) (NEGATIVE) Specimen Received ABO Group A Rh Factor POSITIVE Antibody Screen NEGATIVE (NEGATIVE) 02/09/18 Range/Units 02:30 WBC 5.2 (4.0-10.5) K/mm3 RBC 4.22 (4.1-5.4) M/mm3 Hgb 11.3 L (12.0-16.0) gm/dl Hct 34.6 L (35-47) % MCV 82.0 (78-100) fl MCH 26.7 (26-32) pg MCHC 32.7 (32-36) g/dl RDW 16.7 H (11.5-14.0) % Plt Count 165 (150-450) K/mm3 MPV 10.8 H (6-9.5) fl Gran % 43.4 (36.0-66.0) % Eos # (Auto) 0.26 (0-0.5) Absolute Lymphs (auto) 1.95 (1.0-4.6) Absolute Monos (auto) 0.72 (0.0-1.3) Lymphocytes % 37.4 (24.0-44.0) % Monocytes % 13.8 H (0.0-12.0) % Eosinophils % 5.0 (0.00-5.0) % Basophils % 0.4 (0.0-0.4) % Absolute Granulocytes 2.27 (1.4-6.9) Basophils # 0.02 (0-0.4) PT (9.95-12.35) SECONDS INR (0.8-3.0) APTT (25.3-37.0) SECONDS Sodium (137-145) mmol/L Potassium (3.5-5.1) mmol/L Chloride (98-107) mmol/L Carbon Dioxide (22-30) mmol/L Anion Gap (5-15) MEQ/L BUN (7-17) mg/dL Creatinine (0.52-1.04) mg/dL Estimated GFR ML/MIN Glucose (74-106) mg/dL Calcium (8.4-10.2) mg/dL Total Bilirubin (0.2-1.3) mg/dL AST (14-36) U/L ALT (0-35) U/L Alkaline Phosphatase (38-126) U/L Serum Total Protein (6.3-8.2) g/dL Albumin (3.5-5.0) g/dL Lipase (23-300) U/L Ur Collection Type Urine Color (YELLOW) Urine Appearance (CLEAR) Urine pH (5-6) Ur Specific Channing (1.005-1.025) Urine Protein (Negative) Urine Ketones (NEGATIVE) Urine Blood (0-5) Zain/ul Urine Nitrite (NEGATIVE) Urine Bilirubin (NEGATIVE) Urine Urobilinogen (0-1) mg/dL Ur Leukocyte Esterase (NEGATIVE) Urine Microscopic WBC (0-5) /HPF Ur Epithelial Cells (FEW) /HPF Urine Bacteria (NEGATIVE) /HPF Urine Culture Reflexed (NO) Urine Glucose (NEGATIVE) mg/dL Urine Opiates Level (NEGATIVE) Ur Methadone (NEGATIVE) Urine Barbiturates (NEGATIVE) Ur Phencyclidine (PCP) (NEGATIVE) Urine Amphetamine (NEGATIVE) U Benzodiazepine Level (NEGATIVE) Urine Cocaine (NEGATIVE) Urine Marijuana (THC) (NEGATIVE) Specimen Received ABO Group Rh Factor Antibody Screen (NEGATIVE) - Progress Progress: improved Progress Note: 02/09/18 04:35 patient has been stable, afebrile, not orthostatic, did not vomit, or pass any blood rectally. I discussed out findings with her, started on PO Flagyl and Bentyl as needed, discharged in good condition to follow up with her physician and Dr Smith for colonoscopy as outpatient. She was also advised to rest, continue liquid diet, return if severe pain, vomiting, fever> 102 F or severe bleeding, weakness! 02/09/18 04:43 She was given prescriptions for Flagyl 500 mg TID x 10 d, Bentyl 20 mg TID PRN for pain #15, Anusol HC 1 [place] daily as needed for rectal pain, and Reglan 10 mg PO TID #15. Counseled pt/family regarding: lab results, diagnosis, need for follow-up, rad results - Departure Time of Disposition: 04:37 Departure Disposition: Home Clinical Impression: Colitis, Rectal bleeding Condition: Stable Critical Care Time: No Referrals: JENNYFER FANG MD [Primary Care Provider] - Instructions: Gastrointestinal Bleeding (DC), Hemorrhoids (DC), Bloody Stools, Adult (DC) Additional Instructions: Rest x 2-3 days, continue liquid diet, and follow up with your physician and surgeon this week! Return if severe bleeding, pain, vomiting, fever> 102 F or severe weakness, dizziness!
[2018-02-09] MEDS ORDERED: Reglan 10 MG/2 ML IV ONE (02:51)
[2018-02-09] MEDS ORDERED: Reglan 10 MG/2 ML ONE (02:54)
[2018-02-09 02:58] LABS: INR 0.9 (0.8-3.0)
[2018-02-09 03:01] LABS: PTT 80.2 SECONDS (25.3-37.0)
[2018-02-09 03:03] LABS: ALBUMIN 3.6 g/dL (3.5-5.0); ALKALINE PHOSPHATASE 237 U/L (38-126); ANION GAP 11.6 MEQ/L (5-15); BLOOD UREA NITROGEN 8 mg/dL (7-17); CHLORIDE 104 mmol/L (98-107); Calcium 8.7 mg/dL (8.4-10.2); Carbon Dioxide 28 mmol/L (22-30); Creatinine 1 0.67 mg/dL (0.52-1.04); Glucose 140 mg/dL (74-106); Potassium 3.7 mmol/L (3.5-5.1); SGOT/AST 64 U/L (14-36); SGPT/ALT 188 U/L (0-35); SODIUM 140 mmol/L (137-145); Total Protein 6.4 g/dL (6.3-8.2)
[2018-02-09 03:35] LABS: ABO TYPING A
[2018-02-09 03:36] LABS: Antibody Screen NEGATIVE (NEGATIVE); RH TYPING POSITIVE
[2018-02-09 04:01] LABS: Amphetamine,Urine NEGATIVE (NEGATIVE); Barbiturate,Urine NEGATIVE (NEGATIVE); Benzodiazepine,Urine NEGATIVE (NEGATIVE); Cocaine,Urine NEGATIVE (NEGATIVE); Methadone,Urine NEGATIVE (NEGATIVE); Opiate,Urine POSITIVE (NEGATIVE); PCP,Urine NEGATIVE (NEGATIVE); THC,Urine NEGATIVE (NEGATIVE)
[2018-02-09 04:22] LABS: Appearance HAZY (CLEAR); Bilirubin NEGATIVE (NEGATIVE); Blood NEGATIVE Ery/ul (0-5); Glucose 1000 mg/dL (NEGATIVE); Ketones NEGATIVE (NEGATIVE); Leukocyte Esterase TRACE (NEGATIVE); Nitrite POSITIVE (NEGATIVE); Protein,Urine Dip NEGATIVE (Negative); Urobilinogen NORMAL mg/dL (0-1)
[2018-02-09 04:23] LABS: Bacteria MODERATE /HPF (NEGATIVE); Epithelial Cells FEW /HPF (FEW)
[2018-02-09] MEDS ORDERED: BENTYL 20 MG PO ONE (04:32)
[2018-02-09] MEDS ORDERED: Flagyl 500 MG PO ONE (04:33)
[2018-02-09] MEDS ORDERED: BENTYL 20 MG ONE (04:33)
[2018-02-09] MEDS ORDERED: Levofloxacin 250MG Tablet PO ONE (04:33)
[2018-02-09] MEDS ORDERED: Flagyl 500 MG ONE (04:35)
[2018-02-09 04:50] VITALS: BP 105/62; PULSE 98; O2SAT 98
--- NOTE | 2018-02-09 20:32 | XRAY ---
Exam: CT of the abdomen and pelvis without IV contrast from 02/09/2018. CTDI: 22.68 Comparison: CT of the abdomen and pelvis without IV contrast from 03/31/2016. Indication: 33-year-old female with abdominal pain and rectal bleeding. The patient has a history of prior 2 vessel CABG, cholecystectomy, lung biopsy, and hysterectomy. Technique: Axial non-IV contrast images were obtained through the abdomen and pelvis. No oral contrast was given. Reconstructed coronal and sagittal images were created and reviewed. Findings: Within the lung bases, I see evidence of prior CABG and sternotomy. The transverse heart size is normal. On axial image #2, there is a 4 mm subpleural soft tissue nodule at the posterior right lung base. This might be located on axial image #5 from the prior study of 03/31/2016. Significance is doubtful. There is also a question of several tiny 2-3 mm soft tissue nodules within the posterior lateral aspect of the right lower lobe on axial images #2 and #3. 2 of these tiny nodular densities are seen on axial image #8 from 03/31/2016. Therefore, significance is equivocal. Minimal atelectasis is seen at the lateral aspect of the left posterior lung sulcus. No posterior pleural fluid is seen. The liver appears unremarkable. No definite hepatic mass or intrahepatic biliary duct distention is seen. Surgical clips consistent with prior cholecystectomy are noted. The spleen appears at the upper limits of normal in size measuring about 12.2 cm in greatest transverse dimension. No focal splenic mass is seen. The pancreas and adrenal glands appear normal. The kidneys reveal no evidence of calculi or hydronephrosis. There is a small extrarenal pelvis within each kidney, right slightly larger than left. Minimal nonspecific bilateral perirenal stranding is again seen representing no change. No ureteral distention or ureterolith is seen. I again see some surgical clips within the left midabdomen. Correlate with prior surgical history. The abdominal aorta reveals no aneurysm. Mild atherosclerotic vascular calcification is seen within the distal abdominal aorta and iliac arteries. Very small nonpathological retroperitoneal lymph nodes are again seen. However, I also again note some scattered mesenteric lymph nodes within the abdomen and pelvis. Most of these are subcentimeter in size, although some measure between 10 mm and 15 mm in diameter on the coronal and sagittal images. Consider mesenteric adenitis. I again note a small fat-containing umbilical hernia. No free intraperitoneal air is seen. No ventral abdominal wall hernia is seen. In in addition, there is a small infraumbilical fat-containing hernia as well. See sagittal image #97. I don't believe this is significantly changed from 03/31/2016 in retrospect. The appendix within the right lower quadrant appears unremarkable. Mild scattered stool is seen throughout the colon. I see no evidence of bowel obstruction. There is a question of some mild thickening of the colon wall, primarily within the descending colon and rectosigmoid colon. This is relatively nonspecific, but colitis should be considered. Moderate sized postinflammatory lymph nodes are seen within the inguinal regions. These lymph nodes may be slightly larger as compared to 03/31/2016. The uterus is surgically absent. No free intraperitoneal fluid is seen. I again note some scattered intraperitoneal and retroperitoneal lymph nodes within the pelvis. The skeleton reveals no acute fracture or aggressive bone lesion. Impression: 1. I again note numerous scattered small bowel mesentery, intraperitoneal, and retroperitoneal lymph nodes, most measuring under 10 mm in diameter, although a few are slightly larger than this on the coronal and sagittal images. These are nonspecific. Consider mesenteric adenitis. 2. In addition, there is a question of some thickening of the colon wall, particularly within the left hemicolon. Consider the possibility of colitis. No bowel obstruction is seen. Scattered colonic fecal retention is seen. 3. Normal appendix. 4. Evidence of prior CABG, cholecystectomy, hysterectomy, and prior surgery within the left midabdomen (correlate clinically) within the peritoneal cavity. 5. Small fat-containing umbilical and infra umbilical hernias, best seen on the sagittal midline images. 6. Some tiny nonspecific soft tissue nodular densities are seen at the right lung base, most which appears similar to 03/31/2016 in retrospect. Significance is doubtful. 7. No other acute process is seen within the abdomen or pelvis.
== END 2018-02-09 04:54 | disposition home or self-care (01) ==
LOC: ED 01:51
DX: K52.9 Noninfective gastroenteritis and colitis, unspecified (principal); K62.5 Hemorrhage of anus and rectum; I50.9 Heart failure, unspecified; I25.2 Old myocardial infarction; Z86.711 Personal history of pulmonary embolism; E10.9 Type 1 diabetes mellitus without complications; Z79.4 Long term (current) use of insulin; D86.9 Sarcoidosis, unspecified; Z87.891 Personal history of nicotine dependence; Z79.899 Other long term (current) drug therapy
CPT/HCPCS: 36000; 36415; 74176; 80053; 80307; 81000; 83690; 85025; 85610; 85730; 86850; 86900; 86901; 87077; 87086; 87186; 96360; 96374; 96375; 99284; J1642; J2405; A9270-GY

== ENCOUNTER 2018-02-09 15:21 | Inpatient (IN) | payer MEDICARE ==
[2018-02-09] MEDS ORDERED: Sodium Chloride 0.9% 1000 ML 1,000 ML IV STA (16:40)
[2018-02-09] MEDS ORDERED: Phenergan 25 MG INJ IV ONE (16:40)
[2018-02-09] MEDS ORDERED: PROTONIX 40 MG IV IV ONE ×2 (16:40→17:06)
--- NOTE | 2018-02-09 16:40 | ERPHSYRPT ---
- History of Present Illness Time Seen by Provider: 02/09/18 16:24 Historian: patient, other (Dr Calero) Exam Limitations: no limitations Patient Subjective Stated Complaint: Pt states "I left [facility] yesterday because I wanted to be here. I came last night and told the er doctor that I had a GI bleed and he sent me home. I called Dr. Calero and she said she was going to call the ER doc and have me admitted for a couple of days and monitor me." Triage Nursing Assessment: Pt alert and oriented X 3, skin pwd PT ambulates with an upright steady gait, able to speak in clear full sentences. No apparent respiratory distress. Physician History: The patient is a 33-year-old female with her complaining of abdominal pain and rectal bleeding since yesterday. Dr. Calero called me earlier and wants the patient admitted. The patient was seen in [facility] ER yesterday and was admitted but the patient left [facility] because she did not want to stay at [facility]. She wanted to come to [facility]. She came to the [place] ER after leaving [facility] from [facility]. She was seen last night and was discharged home. She called her doctor today who wants her admitted for likely GI bleed. The patient states that she has lower abdominal pain. She showed me a picture on her cell phone of what appears to be blood in the toilet bowl. She is nauseated. Her past medical history is significant for sarcoidosis, type 1 diabetes, CAD, CABG, asthma. Timing/Duration: yesterday, gradual onset, worse Activities at Onset: none Quality: aching, sharpness Abdominal Pain Onset Location: RLQ, LLQ, suprapubic Pain Radiation: no radiation Severity of Pain-Max: moderate Severity of Pain-Current: moderate Modifying Factors: Improves With: nothing Associated Symptoms: diarrhea, nausea Previous symptoms: recently seen, recent hospitalization Allergies/Adverse Reactions: meperidine HCl [From Demerol] Allergy (Mild, Verified 02/09/18 02:13) Hives Penicillins Allergy (Mild, Verified 02/09/18 02:13) Rash propoxyphene napsylate [From Darvocet-N 100] Allergy (Mild, Verified 02/09/18 02 :13) Hives levofloxacin [From Levaquin] Allergy (Verified 02/09/18 02:13) IMMUNE TO IT ondansetron HCl [From Zofran] Adverse Reaction (Intermediate, Verified 02/09/18 02:13) Nausea and Vomiting morphine Adverse Reaction (Verified 02/09/18 02:13) sulfamethoxazole [From Bactrim] Adverse Reaction (Verified 02/09/18 02:13) trimethoprim [From Bactrim] Adverse Reaction (Verified 02/09/18 02:13) Home Medications: Promethazine HCl 25 mg PO Q6HPRN PRN 03/22/14 [History] Subcutaneous Insulin Pump [Insulin Pump] 1 each MC UD 03/22/14 [History] Pregabalin [Lyrica 100Mg] 100 mg PO BID 12/23/15 [History] Atorvastatin Calcium [Lipitor] 80 mg PO DAILY 01/09/17 [History] SUMAtriptan succinate [Imitrex] 100 mg PO DAILY PRN PRN 04/21/17 [History] Bupropion HCl [Wellbutrin] 150 mg PO BID 09/02/17 [History] Clopidogrel Bisulfate [Clopidogrel] 75 mg PO DAILY 02/02/18 [History] Desvenlafaxine Succinate [Pristiq] 100 mg PO DAILY 02/02/18 [History] Isosorbide Mononitrate 30 mg [Imdur 30 MG] 30 mg PO DAILY 02/02/18 [History ] Ranolazine 500 MG [Ranexa 500 MG] 500 mg PO BID 02/02/18 [History] Hx Tetanus, Diphtheria Vaccination/Date Given: Yes Hx Influenza Vaccination/Date Given: No Hx Pneumococcal Vaccination/Date Given: No Immunizations Up to Date: Yes - Review of Systems Constitutional: No Fever, No Chills Eyes: No Symptoms Ears, Nose, & Throat: No Symptoms Respiratory: No Cough, No Dyspnea Cardiac: No Chest Pain, No Edema, No Syncope Abdominal/Gastrointestinal: Abdominal Pain, Nausea, Melena Genitourinary Symptoms: No Dysuria Musculoskeletal: No Back Pain, No Neck Pain Skin: No Rash Neurological: No Dizziness, No Focal Weakness, No Sensory Changes Psychological: No Symptoms Endocrine: No Symptoms Hematologic/Lymphatic: No Symptoms Immunological/Allergic: No Symptoms All Other Systems: Reviewed and Negative - Past Medical History Pertinent Past Medical History: Yes Neurological History: No Pertinent History ENT History: No Pertinent History Cardiac History: Congestive Heart Failure, Myocardial Infarction ([place]) Respiratory History: CHF, Pulmonary Embolism, Other Endocrine Medical History: Diabetes Type I Musculoskeletal History: No Pertinent History GI Medical History: No Pertinent History History: No Pertinent History Psycho-Social History: No Pertinent History Female Reproductive Disorders: No Pertinent History Other Medical History: Sarcoidosis, slipped disc - Past Surgical History Past Surgical History: Yes Neuro Surgical History: No Pertinent History Cardiac: Cardiac Catheterization Respiratory: Other Gastrointestinal: Cholecystectomy, Other Genitourinary: No Pertinent History Musculoskeletal: No Pertinent History Female Surgical History: Hysterectomy, Section Other Surgical History: LYMP NODE AND LUNG BIOPSY,PORT, liver biopsy, nose repair, diverticulosis. cabg- double bypass - Social History Smoking Status: Never smoker How long have you smoked: 1 Exposure to second hand smoke: No Alcohol Use: None Drug Use: none Patient Lives Alone: No Significant Family History: no pertinent family hx - Female History Hx Last Menstrual Period: hysterectomy Hx Now: No - Nursing Vital Signs Nursing Vital Signs: Initial Vital Signs Temperature 98.6 F 02/09/18 15:27 Pulse Rate 88 02/09/18 15:27 Respiratory Rate 16 02/09/18 15:27 Blood Pressure 117/89 02/09/18 15:27 O2 Sat by Pulse Oximetry 99 02/09/18 15:27 Pain Scale Pain Intensity 4 - Physical Exam General Appearance: mild distress Eye Exam: PERRL/EOMI, eyes nml inspection Ears, Nose, Throat Exam: normal ENT inspection, pharynx normal, moist mucous membranes Neck Exam: normal inspection, non-tender, supple, full range of motion Respiratory Exam: normal breath sounds, lungs clear, No respiratory distress Cardiovascular Exam: regular rate/rhythm, normal heart sounds Gastrointestinal/Abdomen Exam: tenderness (lower abd) Pelvic Exam: not done Rectal Exam: not done (pt had 2 UBALDO yesterday.) Back Exam: normal inspection, normal range of motion, No CVA tenderness, No vertebral tenderness Extremity Exam: normal inspection, normal range of motion, pelvis stable Neurologic Exam: alert, oriented x 3, cooperative, normal mood/affect, nml cerebellar function, sensation nml, No motor deficits Skin Exam: normal color, warm, dry SpO2 Interpretation: normal SpO2: 99 Oxygen Delivery: Room Air Ordered Tests: Active Orders 24 hr Category Date Time Status IV Insertion STAT Care 02/09/18 16:40 Active Pulse Oximetry (ED) STAT Care 02/09/18 16:40 Active BMP Stat Lab 02/09/18 17:00 Completed CBC W DIFF Stat Lab 02/09/18 17:00 Completed Lactic Acid Stat Lab 02/09/18 16:55 Completed UA W/RFX UR CULTURE Stat Lab 02/09/18 16:41 Uncollected Medication Summary Discontinued Medications Generic Name Dose Route Start Last Admin Trade Name Cristobal PRN Reason Stop Dose Admin Sodium Chloride 1,000 mls @ 999 mls/hr 02/09/18 16:40 02/09/18 17:08 Sodium Chloride 0.9% 1000 Ml IV 02/09/18 17:40 999 mls/hr .Q1H1M STA Administration Sodium Chloride Confirm 02/09/18 17:06 Sodium Chloride 0.9% 1000 Ml Administered 02/09/18 17:07 Dose 1,000 mls @ ud .ROUTE .STK-MED ONE Oxycodone/Acetaminophen 1 tab 02/09/18 16:43 02/09/18 17:09 Percocet Tablet 5/325mg PO 02/09/18 16:44 1 tab STAT STA Administration Oxycodone/Acetaminophen Confirm 02/09/18 17:06 Percocet Tablet 5/325mg Administered 02/09/18 17:07 Dose 1 tab .ROUTE .STK-MED ONE Oxycodone/Acetaminophen Confirm 02/09/18 17:16 Percocet Tablet 5/325mg Administered 02/09/18 17:17 Dose 1 tab .ROUTE .STK-MED ONE Pantoprazole Sodium 40 mg 02/09/18 16:40 02/09/18 17:08 Protonix 40 Mg Iv IV 02/09/18 16:41 40 mg STAT ONE Administration Pantoprazole Sodium Confirm 02/09/18 17:06 Protonix 40 Mg Iv Administered 02/09/18 17:07 Dose 40 mg IV .STK-MED ONE Promethazine HCl 25 mg 02/09/18 16:40 02/09/18 17:09 Phenergan 25 Mg Inj IV 02/09/18 16:41 25 mg STAT ONE Administration Promethazine HCl Confirm 02/09/18 17:05 Phenergan 25 Mg Inj Administered 02/09/18 17:06 Dose 25 mg .ROUTE .STK-MED ONE Lab/Rad Data: Laboratory Result Diagrams 02/09/18 17:00 02/09/18 17:00 Laboratory Results 02/09/18 02/09/18 02/09/18 Range/Units 17:00 17:00 16:55 WBC 5.2 (4.0-10.5) K/mm3 RBC 4.35 (4.1-5.4) M/mm3 Hgb 11.6 L (12.0-16.0) gm/dl Hct 36.0 (35-47) % MCV 82.8 (78-100) fl MCH 26.6 (26-32) pg MCHC 32.2 (32-36) g/dl RDW 16.6 H (11.5-14.0) % Plt Count 180 (150-450) K/mm3 MPV 11.0 H (6-9.5) fl Gran % 55.6 (36.0-66.0) % Eos # (Auto) 0.23 (0-0.5) Absolute Lymphs (auto) 1.51 (1.0-4.6) Absolute Monos (auto) 0.53 (0.0-1.3) Lymphocytes % 29.2 (24.0-44.0) % Monocytes % 10.2 (0.0-12.0) % Eosinophils % 4.4 (0.00-5.0) % Basophils % 0.6 (0.0-0.4) % Absolute Granulocytes 2.88 (1.4-6.9) Basophils # 0.03 (0-0.4) Sodium 139 (137-145) mmol/L Potassium 4.3 (3.5-5.1) mmol/L Chloride 105 (98-107) mmol/L Carbon Dioxide 27 (22-30) mmol/L Anion Gap 10.9 (5-15) MEQ/L BUN 7 (7-17) mg/dL Creatinine 0.72 (0.52-1.04) mg/dL Estimated GFR > 60.0 ML/MIN Glucose 277 H (74-106) mg/dL Lactic Acid 0.7 (0.4-2.0) Calcium 8.7 (8.4-10.2) mg/dL - Progress Progress: unchanged Discussed with : Abdias Will see patient in: hospital (observation) (per Dr Calero) Counseled pt/family regarding: lab results, diagnosis - Departure Time of Disposition: 18:06 Departure Disposition: Observation (Per Dr Calero) Clinical Impression: GI bleed, Abdominal pain Condition: Stable Critical Care Time: No Referrals: JENNYFER FANG MD [Primary Care Provider] -
[2018-02-09] MEDS ORDERED: PERCOCET TABLET 5/325MG PO STA (16:43)
[2018-02-09] MEDS ORDERED: Phenergan 25 MG INJ ONE (17:05)
[2018-02-09 17:06] LABS: BASOPHIL % 0.6 % (0.0-0.4); Basophil (Absolute #) 0.03 (0-0.4); Eosinophil % 4.4 % (0.00-5.0); Eosinophil (Absolute #) 0.23 (0-0.5); Granulocyte Absolute (ANC) 2.88 (1.4-6.9); Granulocytes % 55.6 % (36.0-66.0); Hemoglobin 11.6 gm/dl (12.0-16.0); Lymphocyte (Absolute #) 1.51 (1.0-4.6); Lymphocytes % 29.2 % (24.0-44.0); Mean Cell Volume 82.8 fl (78-100); Mean Corpuscular Hgb Concent. 32.2 g/dl (32-36); Monocyte (Absolute #) 0.53 (0.0-1.3); Monocytes % 10.2 % (0.0-12.0); Platelet Count 180 K/mm3 (150-450); Red Blood Count 4.35 M/mm3 (4.1-5.4); Red Cell Distribution Width 16.6 % (11.5-14.0); White Blood Count 5.2 K/mm3 (4.0-10.5)
[2018-02-09] MEDS ORDERED: PERCOCET TABLET 5/325MG ONE ×2 (17:06→17:16)
[2018-02-09] MEDS ORDERED: Sodium Chloride 0.9% 1000 ML 2,000 ML ONE (17:06)
[2018-02-09 17:09] LABS: Mean Corpuscular Hemoglobin 26.6 pg (26-32)
[2018-02-09 17:25] LABS: ANION GAP 10.9 MEQ/L (5-15); BLOOD UREA NITROGEN 7 mg/dL (7-17); CHLORIDE 105 mmol/L (98-107); Calcium 8.7 mg/dL (8.4-10.2); Carbon Dioxide 27 mmol/L (22-30); Creatinine 1 0.72 mg/dL (0.52-1.04); Glucose 277 mg/dL (74-106); Potassium 4.3 mmol/L (3.5-5.1); SODIUM 139 mmol/L (137-145)
[2018-02-09] MEDS ORDERED: TYLENOL 325 MG PO PRN (18:26)
[2018-02-09] MEDS ORDERED: ROCEPHIN 1 Gm-D5w 50 ml Bag** 1 G/50 ML IVPB IV ONE (18:53)
[2018-02-09] MEDS: Sodium Chloride 0.9% 1000 ML 1,000 ML IV SCH (18:55)
[2018-02-09] MEDS: ROCEPHIN 1 Gm-D5w 50 ml Bag** 1 G/50 ML IVPB IV SCH (18:55)
[2018-02-09] MEDS ORDERED: Norco 10/325 MG Tablet PO PRN (19:32)
[2018-02-09] MEDS ORDERED: NovoLOG Insulin SQ PRN (19:33)
[2018-02-09] MEDS: LYRICA 100MG PO SCH (21:48)
[2018-02-09] MEDS: Imdur 30 MG PO SCH (21:48)
[2018-02-09] MEDS: PLAVIX 75 MG Tablet PO SCH (21:48)
[2018-02-09] MEDS: Wellbutrin SR 150 MG PO SCH (21:49)
[2018-02-09] MEDS: Ranexa 500 MG PO SCH (21:49)
[2018-02-09] MEDS: PRISTIQ ER PO SCH (21:49)
[2018-02-09] MEDS: Ambien 10 MG PO PRN (21:52)
[2018-02-09] MEDS: SUBLIMAZE 100 MCG/2 ML IV PRN (23:49)
[2018-02-10] MEDS: SUBLIMAZE 100 MCG/2 ML IV PRN ×5 (04:09→21:22)
[2018-02-10] MEDS: Sodium Chloride 0.9% 1000 ML 1,000 ML IV SCH (04:14)
[2018-02-10 05:30] LABS: BASOPHIL % 0.2 % (0.0-0.4); Basophil (Absolute #) 0.01 (0-0.4); Eosinophil % 5.7 % (0.00-5.0); Eosinophil (Absolute #) 0.23 (0-0.5); Granulocyte Absolute (ANC) 1.78 (1.4-6.9); Hematocrit 32.2 % (35-47); Hemoglobin 10.2 gm/dl (12.0-16.0); Lymphocyte (Absolute #) 1.52 (1.0-4.6); Lymphocytes % 37.5 % (24.0-44.0); Mean Cell Volume 83.4 fl (78-100); Mean Corpuscular Hemoglobin 26.4 pg (26-32); Mean Corpuscular Hgb Concent. 31.7 g/dl (32-36); Mean Platelet Volume 11.3 fl (6-9.5); Monocyte (Absolute #) 0.51 (0.0-1.3); Monocytes % 12.6 % (0.0-12.0); Platelet Count 182 K/mm3 (150-450); Red Blood Count 3.86 M/mm3 (4.1-5.4); Red Cell Distribution Width 16.7 % (11.5-14.0); White Blood Count 4.1 K/mm3 (4.0-10.5)
[2018-02-10 05:34] LABS: Appearance CLEAR (CLEAR); Bilirubin NEGATIVE (NEGATIVE); Blood NEGATIVE Ery/ul (0-5); Glucose 250 mg/dL (NEGATIVE); Ketones NEGATIVE (NEGATIVE); Leukocyte Esterase NEGATIVE (NEGATIVE); Nitrite NEGATIVE (NEGATIVE); Protein,Urine Dip NEGATIVE (Negative); Urobilinogen NORMAL mg/dL (0-1)
[2018-02-10 05:53] LABS: BLOOD UREA NITROGEN 5 mg/dL (7-17); CHLORIDE 108 mmol/L (98-107); Calcium 8.4 mg/dL (8.4-10.2); Carbon Dioxide 26 mmol/L (22-30); Creatinine 1 0.68 mg/dL (0.52-1.04); Glucose 235 mg/dL (74-106); Potassium 3.9 mmol/L (3.5-5.1); SODIUM 141 mmol/L (137-145)
[2018-02-10] MEDS: Phenergan 25 MG INJ IV PRN ×3 (08:45→21:13)
--- NOTE | 2018-02-10 09:13 | PCM.HP ---
History of Present Illness - Chief Complaint Chief Complaint: colitis History of Present Illness: is a 33 year old female with T1DM and CAD (hx CABG x 2) who came to ER wiht abd pain and rectal bleeding. This started 3d ago with a regular BM with a stool full of bright red blood. She did have 9/10 lower abd pain at that time. The next day she had another BM with bright red blood. She had gone to [facility] ER yesterday and reports thta they wanted to admit her and consult surgery, but she wanted transfer to [facility] and they told her to sign out AMA and come to [facility]. The report from our ER doctor was that she wanted more pain medicine than they gave her and when they refused she requested transfer to [facility] which was not deemed appropriate d/t lateral transfer. She called and was c/o severe pain with bleeding so I advised her to go to our ER and we would admit for observation. The CT abd/pelvis done here did show some possible thickening in the colon. WBC nl. She was admitted for colitis and GI bleed on levaquin and flagyl. Was initially CLD with norco for pain control;/ she c/o more severe pain so was placed on IV fentanyl and made NPO. This morning she is c/o suprapubic pain 4/10 after pain meds, sharp crampy pain worse with BMs. However no BMs since admission. She says she is hungry. - Review of Systems Constitutional: Chills Respiratory: No Short Of Breath Cardiac: No Chest Pain Abdominal/Gastrointestinal: Abdominal Pain, Nausea, Diarrhea, Hematochezia Psychological: Anxiety, No Depression, No Suicidal Ideations Hematologic/Lymphatic: Easy Bruising All Other Systems: Reviewed and Negative Medications & Allergies Home Medications: Home Medication List Promethazine HCl 25 mg PO Q6HPRN PRN 03/22/14 [History Confirmed 02/09/18] Subcutaneous Insulin Pump [Insulin Pump] 1 each MC UD 03/22/14 [History Confirmed 02/09/18] Pregabalin [Lyrica 100Mg] 100 mg PO BID 12/23/15 [History Confirmed 02/09/18] Zolpidem Tartrate [Ambien] 10 mg PO HS #30 tablet 03/13/16 [Rx Confirmed ] Oxycodone HCl/Acetaminophen [Percocet 10-325 mg Tablet] 1 tablet PO Q4H PRN PRN #180 tablet 04/28/16 [Rx Confirmed 02/09/18] Atorvastatin Calcium [Lipitor] 80 mg PO HS 01/09/17 [History Confirmed 02/09/18] SUMAtriptan succinate [Imitrex] 100 mg PO DAILY PRN PRN 04/21/17 [History Confirmed 02/09/18] Bupropion HCl [Wellbutrin] 150 mg PO BID 09/02/17 [History Confirmed 02/09/18] Clopidogrel Bisulfate [Clopidogrel] 75 mg PO HS 02/02/18 [History Confirmed ] Desvenlafaxine Succinate [Pristiq] 100 mg PO HS 02/02/18 [History Confirmed ] Isosorbide Mononitrate 30 mg [Imdur 30 MG] 30 mg PO HS 02/02/18 [History Confirmed 02/09/18] Ranolazine 500 MG [Ranexa 500 MG] 500 mg PO BID 02/02/18 [History Confirmed 02/09/18] Allergies/Adverse Reactions: Allergies Allergy/AdvReac Type Severity Reaction Status Date / Time meperidine HCl [From Demerol] Allergy Mild Hives Verified 02/09/18 02:13 Penicillins Allergy Mild Rash Verified 02/09/18 02:13 propoxyphene napsylate Allergy Mild Hives Verified 02/09/18 02:13 [From Darvocet-N 100] levofloxacin [From Levaquin] Allergy IMMUNE TO Verified 02/09/18 02:13 IT ondansetron HCl [From Zofran] AdvReac Intermediate Nausea and Verified 02/09/18 02:13 Vomiting morphine AdvReac Verified 02/09/18 02:13 sulfamethoxazole AdvReac Verified 02/09/18 02:13 [From Bactrim] trimethoprim [From Bactrim] AdvReac Verified 02/09/18 02:13 - Past Medical History Past Medical History: Yes Neurological History: No Pertinent History ENT History: No Pertinent History Cardiac History: Congestive Heart Failure, Myocardial Infarction ([place]) Respiratory History: CHF, Pulmonary Embolism, Other Endocrine Medical History: Diabetes Type I Musculoskelatal History: No Pertinent History GI Medical History: No Pertinent History History: No Pertinent History Pyscho-Social History: No Pertinent History Reproductive Disorders: No Pertinent History Comment: Sarcoidosis, slipped disc - Female History Hx Last Menstrual Period: hysterectomy Are you now?: No - Past Surgical History Past Surgical History: Yes Neuro Surgical History: No Pertinent History Cardiac History: Cardiac Catheterization Respiratory Surgery: Other GI Surgical History: Cholecystectomy, Other Genitourinary Surgical Hx: No Pertinent History Musculskeletal Surgical Hx: No Pertinent History Female Surgical History: Hysterectomy, Section Other Surgical History: LYMP NODE AND LUNG BIOPSY,PORT, liver biopsy, nose repair, diverticulosis. cabg- double bypass - Social History Smoking Status: Never smoker How long have you smoked: 1 Exposure to second hand smoke: No Alcohol: None Drug Use: none Significant Family History: no pertinent family hx - Physical Exam Vital Signs: Vital Signs - 24 hr Temp Pulse Resp BP Pulse Ox 02/10/18 07:09 98 F 70 20 122/56 97 02/10/18 04:00 97.9 F 64 18 100/48 97 02/09/18 23:51 97.8 F 79 16 123/69 96 02/09/18 20:40 95 02/09/18 20:00 69 16 110/62 99 02/09/18 19:53 97.8 F 67 20 103/59 97 02/09/18 19:04 97.8 F 67 16 99/58 99 02/09/18 18:26 96 02/09/18 18:11 99 02/09/18 17:23 65 15 142/74 97 02/09/18 16:44 98.1 F 77 16 122/72 97 02/09/18 15:27 98.6 F 88 16 117/89 99 Oxygen-Last 24 hours O2 Percentage 3 Liters = 32% General Appearance: mild distress, alert, obese Neurologic Exam: oriented x 3, cooperative Eye Exam: eyes nml inspection Ears, Nose, Throat Exam: moist mucous membranes Neck Exam: normal inspection, non-tender, No lymphadenopathy Respiratory Exam: normal breath sounds, lungs clear, No crackles/rales, No rhonchi, No wheezing Cardiovascular Exam: regular rate/rhythm, normal heart sounds, other (midline sternotomy wound well healed), No murmur Gastrointestinal/Abdomen Exam: soft, normal bowel sounds, tenderness (suprapubic /LLQ), No distention, No mass, No guarding, No rebound Back Exam: normal inspection, No rash Extremity Exam: other (macular purple discol over thighs bilat), No pedal edema , No swelling Results - Labs Lab/Micro Results: Accuchecks Accucheck Value: 188 Accucheck Value: 189 Lab Results-Last 24 Hours 02/09/18 02/09/18 02/09/18 Range/Units 16:55 17:00 17:00 WBC 5.2 (4.0-10.5) K/mm3 RBC 4.35 (4.1-5.4) M/mm3 Hgb 11.6 L (12.0-16.0) gm/dl Hct 36.0 (35-47) % MCV 82.8 (78-100) fl MCH 26.6 (26-32) pg MCHC 32.2 (32-36) g/dl RDW 16.6 H (11.5-14.0) % Plt Count 180 (150-450) K/mm3 MPV 11.0 H (6-9.5) fl Gran % 55.6 (36.0-66.0) % Eos # (Auto) 0.23 (0-0.5) Absolute Lymphs (auto) 1.51 (1.0-4.6) Absolute Monos (auto) 0.53 (0.0-1.3) Lymphocytes % 29.2 (24.0-44.0) % Monocytes % 10.2 (0.0-12.0) % Eosinophils % 4.4 (0.00-5.0) % Basophils % 0.6 (0.0-0.4) % Absolute Granulocytes 2.88 (1.4-6.9) Basophils # 0.03 (0-0.4) Sodium 139 (137-145) mmol/L Potassium 4.3 (3.5-5.1) mmol/L Chloride 105 (98-107) mmol/L Carbon Dioxide 27 (22-30) mmol/L Anion Gap 10.9 (5-15) MEQ/L BUN 7 (7-17) mg/dL Creatinine 0.72 (0.52-1.04) mg/dL Estimated GFR > 60.0 ML/MIN Glucose 277 H (74-106) mg/dL Lactic Acid 0.7 (0.4-2.0) Calcium 8.7 (8.4-10.2) mg/dL Ur Collection Type Urine Color (YELLOW) Urine Appearance (CLEAR) Urine pH (5-6) Ur Specific [place] (1.005-1.025) Urine Protein (Negative) Urine Ketones (NEGATIVE) Urine Blood (0-5) Zain/ul Urine Nitrite (NEGATIVE) Urine Bilirubin (NEGATIVE) Urine Urobilinogen (0-1) mg/dL Ur Leukocyte Esterase (NEGATIVE) Urine Culture Reflexed (NO) Urine Glucose (NEGATIVE) mg/dL Specimen Received 02/10/18 02/10/18 02/10/18 Range/Units 03:00 05:00 05:00 WBC 4.1 (4.0-10.5) K/mm3 RBC 3.86 L (4.1-5.4) M/mm3 Hgb 10.2 L (12.0-16.0) gm/dl Hct 32.2 L (35-47) % MCV 83.4 (78-100) fl MCH 26.4 (26-32) pg MCHC 31.7 L (32-36) g/dl RDW 16.7 H (11.5-14.0) % Plt Count 182 (150-450) K/mm3 MPV 11.3 H (6-9.5) fl Gran % 44.0 (36.0-66.0) % Eos # (Auto) 0.23 (0-0.5) Absolute Lymphs (auto) 1.52 (1.0-4.6) Absolute Monos (auto) 0.51 (0.0-1.3) Lymphocytes % 37.5 (24.0-44.0) % Monocytes % 12.6 H (0.0-12.0) % Eosinophils % 5.7 H (0.00-5.0) % Basophils % 0.2 (0.0-0.4) % Absolute Granulocytes 1.78 (1.4-6.9) Basophils # 0.01 (0-0.4) Sodium 141 (137-145) mmol/L Potassium 3.9 (3.5-5.1) mmol/L Chloride 108 H (98-107) mmol/L Carbon Dioxide 26 (22-30) mmol/L Anion Gap 10.0 (5-15) MEQ/L BUN 5 L (7-17) mg/dL Creatinine 0.68 (0.52-1.04) mg/dL Estimated GFR > 60.0 ML/MIN Glucose 235 H (74-106) mg/dL Lactic Acid (0.4-2.0) Calcium 8.4 (8.4-10.2) mg/dL Ur Collection Type CLEAN CATCH Urine Color YELLOW (YELLOW) Urine Appearance CLEAR (CLEAR) Urine pH 5.0 (5-6) Ur Specific [place] 1.010 (1.005-1.025) Urine Protein NEGATIVE (Negative) Urine Ketones NEGATIVE (NEGATIVE) Urine Blood NEGATIVE (0-5) Zain/ul Urine Nitrite NEGATIVE (NEGATIVE) Urine Bilirubin NEGATIVE (NEGATIVE) Urine Urobilinogen NORMAL (0-1) mg/dL Ur Leukocyte Esterase NEGATIVE (NEGATIVE) Urine Culture Reflexed NO (NO) Urine Glucose 250 (NEGATIVE) mg/dL Specimen Received 02/10/18 0300 Accuchecks Accucheck Value: 188 Accucheck Value: 189 Assessment/Plan (1) Colitis Current Visit: No Status: Acute Assessment & Plan: WBC nl, although she may have a blunted response with her chronic health conditions. On Levaquin IV and flagyl IV day #2. Code(s): K52.9 - NONINFECTIVE GASTROENTERITIS AND COLITIS, UNSPECIFIED (2) GI bleed Current Visit: Yes Status: Acute Qualifiers: GI bleed type/associated pathology: unspecified gastrointestinal hemorrhage type Qualified Code(s): K92.2 - Gastrointestinal hemorrhage, unspecified Assessment & Plan: Likely d/t colitis. Hgb stable. Will observe. If needed surgery consult - otherwise f/u OP for colonoscopy. Code(s): K92.2 - GASTROINTESTINAL HEMORRHAGE, UNSPECIFIED (3) Liver lesion Current Visit: Yes Status: Acute Assessment & Plan: she reported from a scan done by pulmonology - will check liver u/s. Code(s): K76.9 - LIVER DISEASE, UNSPECIFIED (4) Sarcoidosis Current Visit: No Status: Chronic Code(s): D86.9 - SARCOIDOSIS, UNSPECIFIED (5) Bruising Current Visit: Yes Status: Acute Assessment & Plan: check PT/PTT. platelets are fine. Code(s): T14.8XXA - OTHER INJURY OF UNSPECIFIED BODY REGION, INITIAL ENCOUNTER
[2018-02-10] MEDS ORDERED: Dextrose 5% -0.45 NaCl 1000 ML 1,000 ML IV SCH (09:15)
[2018-02-10 09:52] LABS: PTT 34.7 SECONDS (25.3-37.0)
[2018-02-10] MEDS ORDERED: PROMETHAZINE HCL 25 MG PO PRN (09:55)
[2018-02-10] MEDS ORDERED: NON-FORMULARY ITEM (Sumatriptan Succinate [Imitrex] 100 MG) PO PRN (09:55)
[2018-02-10] MEDS ORDERED: SUBCUTANEOUS INSULIN PUMP MC SCH (10:00)
[2018-02-10] MEDS ORDERED: PHENERGAN 25 MG PO PRN (10:01)
[2018-02-10] MEDS ORDERED: PATIENT OWN MEDICATION IJ PRN (10:02)
[2018-02-10] MEDS ORDERED: MEDICATION INTERVENTION MC SCH (10:15)
[2018-02-10] MEDS: LYRICA 100MG PO SCH ×2 (10:16→21:12)
[2018-02-10] MEDS: PROTONIX 40 MG IV IV SCH (10:16)
[2018-02-10] MEDS: Wellbutrin SR 150 MG PO SCH ×2 (10:16→21:12)
[2018-02-10] MEDS: Ranexa 500 MG PO SCH ×2 (10:16→21:12)
[2018-02-10] MEDS: ROCEPHIN 1 Gm-D5w 50 ml Bag** 1 G/50 ML IVPB IV SCH (10:17)
--- NOTE | 2018-02-10 12:18 | XRAY ---
Indication: Liver mass. Sarcoidosis. Cholecystectomy. Two-dimensional right upper quadrant abdominal sonogram performed. Comparison: None Gallbladder surgically absent. Common bile duct measures 3.9 mm. No intrahepatic biliary distention. Remaining visualized portions of the liver, pancreas, and right kidney appear sonographically normal. Right kidney measures 11.4 cm in length. No ascites. Impression: Cholecystectomy in a otherwise negative right upper quadrant sonogram.
[2018-02-10] MEDS: LEVOFLOXACIN 750MG/150ML D5W 750 MG/150 ML BAG IV SCH (13:47)
[2018-02-10] MEDS: OXYCODONE-ACETAMINOPHEN 10-325 PO PRN (19:30)
[2018-02-10] MEDS: Imdur 30 MG PO SCH (21:11)
[2018-02-10] MEDS: PRISTIQ ER PO SCH (21:12)
[2018-02-10] MEDS: ZOCOR 20MG PO SCH (21:12)
[2018-02-10] MEDS: PLAVIX 75 MG Tablet PO SCH (21:12)
[2018-02-10] MEDS ORDERED: NON-FORMULARY ITEM (Atorvastatin Calcium [Lipitor] 80 MG) PO SCH (22:00)
[2018-02-10] MEDS: Ambien 10 MG PO PRN (23:11)
[2018-02-11] MEDS: SUBLIMAZE 100 MCG/2 ML IV PRN ×6 (01:25→22:15)
[2018-02-11] MEDS: OXYCODONE-ACETAMINOPHEN 10-325 PO PRN ×4 (03:13→16:19)
[2018-02-11] MEDS: Phenergan 25 MG INJ IV PRN ×3 (07:35→23:08)
[2018-02-11] MEDS: FLAGYL 500 MG IVPB 500 MG/100 ML BAG IV SCH ×3 (08:17→18:15)
[2018-02-11 08:32] LABS: BASOPHIL % 0.4 % (0.0-0.4); Basophil (Absolute #) 0.02 (0-0.4); Eosinophil % 5.4 % (0.00-5.0); Eosinophil (Absolute #) 0.25 (0-0.5); Granulocyte Absolute (ANC) 2.26 (1.4-6.9); Granulocytes % 49.3 % (36.0-66.0); Hematocrit 32.3 % (35-47); Hemoglobin 10.4 gm/dl (12.0-16.0); Lymphocyte (Absolute #) 1.44 (1.0-4.6); Lymphocytes % 31.4 % (24.0-44.0); Mean Cell Volume 83.2 fl (78-100); Mean Corpuscular Hemoglobin 26.8 pg (26-32); Mean Corpuscular Hgb Concent. 32.2 g/dl (32-36); Mean Platelet Volume 10.4 fl (6-9.5); Monocyte (Absolute #) 0.62 (0.0-1.3); Monocytes % 13.5 % (0.0-12.0); Platelet Count 185 K/mm3 (150-450); Red Blood Count 3.88 M/mm3 (4.1-5.4); Red Cell Distribution Width 16.2 % (11.5-14.0); White Blood Count 4.6 K/mm3 (4.0-10.5)
[2018-02-11 09:16] LABS: ALBUMIN 3.4 g/dL (3.5-5.0); ALKALINE PHOSPHATASE 215 U/L (38-126); ANION GAP 11.6 MEQ/L (5-15); BLOOD UREA NITROGEN 10 mg/dL (7-17); CHLORIDE 103 mmol/L (98-107); Calcium 8.4 mg/dL (8.4-10.2); Carbon Dioxide 27 mmol/L (22-30); Creatinine 1 0.88 mg/dL (0.52-1.04); Glucose 357 mg/dL (74-106); Potassium 3.9 mmol/L (3.5-5.1); SGOT/AST 47 U/L (14-36); SGPT/ALT 104 U/L (0-35); SODIUM 138 mmol/L (137-145)
--- NOTE | 2018-02-11 09:17 | PCM.NOTE ---
Date and Time: 02/11/18912 Subjective Assessment: She is still having abd pain, currently 4/10. Did try CLD yesterday but thinks she ate too much and was getting nauseated. This morning she would like to try eating again. Objective Exam General Appearance: no apparent distress (sitting up in bed with tray), alert Neurologic Exam: oriented x 3, cooperative Skin Exam: normal color, warm, dry, No rash Ears, Nose, Throat Exam: moist mucous membranes Neck Exam: normal inspection Respiratory Exam: normal breath sounds, lungs clear, No crackles/rales, No rhonchi, No wheezing Cardiovascular Exam: regular rate/rhythm, normal heart sounds, No murmur Gastrointestinal/Abdomen Exam: soft, normal bowel sounds, tenderness (LLQ; decreased from yesterday), No mass, No guarding, No rebound Extremity Exam: normal inspection, No pedal edema, No swelling Back Exam: normal inspection, No rash OBJECTIVE DATA Vital Signs: Vital Signs - 24 hr Temp Pulse Resp BP Pulse Ox 02/11/18 07:13 97.6 F 100 H 20 127/69 99 02/11/18 04:05 97.9 F 85 16 115/59 97 02/10/18 23:57 98.2 F 83 16 114/58 98 02/10/18 20:05 98.7 F 73 16 117/75 97 02/10/18 16:24 97.8 F 83 20 127/76 98 02/10/18 12:12 98.3 F 73 20 115/62 95 Pain Assessment - Last Documented Pain Intensity 4 Pain Scale Used 0-10 Pain Scale Intake and Output: Intake & Output 02/08/18 02/09/18 02/10/18 02/11/18 11:59 11:59 11:59 11:59 Intake Total 2005 2409 Output Total 550 750 Balance 1456 1659 Weight 88.7 kg Lab Results: Accuchecks Date 02/10/18 Time 22:00 Accucheck Value: 425 Accucheck Value: 189 Accucheck Value: 259 Accucheck Value: 132 Accucheck Value: 153 Lab Results-Last 24 Hours 02/10/18 02/11/18 Range/Units 05:00 08:27 WBC 4.6 (4.0-10.5) K/mm3 RBC 3.88 L (4.1-5.4) M/mm3 Hgb 10.4 L (12.0-16.0) gm/dl Hct 32.3 L (35-47) % MCV 83.2 (78-100) fl MCH 26.8 (26-32) pg MCHC 32.2 (32-36) g/dl RDW 16.2 H (11.5-14.0) % Plt Count 185 (150-450) K/mm3 MPV 10.4 H (6-9.5) fl Gran % 49.3 (36.0-66.0) % Eos # (Auto) 0.25 (0-0.5) Absolute Lymphs (auto) 1.44 (1.0-4.6) Absolute Monos (auto) 0.62 (0.0-1.3) Lymphocytes % 31.4 (24.0-44.0) % Monocytes % 13.5 H (0.0-12.0) % Eosinophils % 5.4 H (0.00-5.0) % Basophils % 0.4 (0.0-0.4) % Absolute Granulocytes 2.26 (1.4-6.9) Basophils # 0.02 (0-0.4) PT 11.6 (9.95-12.35) SECONDS INR 1.00 (0.8-3.0) APTT 34.7 (25.3-37.0) SECONDS Radiology Exams: Radiology Procedures Category Date Time Status LIVER OR SPLEEN [US] Routine Exams 02/10/18 11:51 Completed Assessment/Plan (1) Colitis Current Visit: Yes Status: Acute Onset Date: ~02/10/18 Assessment & Plan: On Levaquin; initially was supposed to be on levaquin and flagyl but was placed on levaquin and rocephin in the ER. I changed the rocephin to flagyl this morning. Pt is interested in colonoscopy, which I think should be done. Consulting surgery although I imagine they will want to wait until this acute episode resolves and do the colonoscopy outpatient. Code(s): K52.9 - NONINFECTIVE GASTROENTERITIS AND COLITIS, UNSPECIFIED (2) GI bleed Current Visit: Yes Status: Acute Onset Date: ~02/10/18 Qualifiers: GI bleed type/associated pathology: unspecified gastrointestinal hemorrhage type Qualified Code(s): K92.2 - Gastrointestinal hemorrhage, unspecified Assessment & Plan: none noted here. labs pending this morning but hgb has been stable. Code(s): K92.2 - GASTROINTESTINAL HEMORRHAGE, UNSPECIFIED (3) Liver lesion Current Visit: Yes Status: Acute Onset Date: ~02/10/18 Assessment & Plan: Removing from problem list, there was no lesion found on u/s. Code(s): K76.9 - LIVER DISEASE, UNSPECIFIED (4) Sarcoidosis Current Visit: Yes Status: Chronic Code(s): D86.9 - SARCOIDOSIS, UNSPECIFIED (5) Bruising Current Visit: Yes Status: Acute Onset Date: ~02/10/18 Assessment & Plan: the PT/PTT, and platelets are all wnl. Code(s): T14.8XXA - OTHER INJURY OF UNSPECIFIED BODY REGION, INITIAL ENCOUNTER
[2018-02-11] MEDS: PROTONIX 40 MG IV IV SCH (09:32)
[2018-02-11] MEDS: Sodium Chloride 0.9% 1000 ML 1,000 ML IV SCH ×2 (09:32→19:57)
[2018-02-11] MEDS: LYRICA 100MG PO SCH ×2 (09:32→21:30)
[2018-02-11] MEDS: Ranexa 500 MG PO SCH ×2 (09:32→21:30)
[2018-02-11] MEDS: LEVOFLOXACIN 750MG/150ML D5W 750 MG/150 ML BAG IV SCH (09:32)
[2018-02-11] MEDS: Wellbutrin SR 150 MG PO SCH ×2 (09:32→21:30)
[2018-02-11] MEDS ORDERED: Golytely Solution 4000 ML PO ONE (20:15)
[2018-02-11] MEDS: Imdur 30 MG PO SCH (21:30)
[2018-02-11] MEDS: PRISTIQ ER PO SCH (21:30)
[2018-02-11] MEDS: PLAVIX 75 MG Tablet PO SCH (21:30)
[2018-02-11] MEDS: ZOCOR 20MG PO SCH (21:31)
[2018-02-12] MEDS: Sodium Chloride 0.9% 1000 ML 1,000 ML IV SCH (00:12)
[2018-02-12] MEDS: FLAGYL 500 MG IVPB 500 MG/100 ML BAG IV SCH ×3 (00:14→11:51)
[2018-02-12] MEDS: OXYCODONE-ACETAMINOPHEN 10-325 PO PRN ×2 (00:27→13:08)
[2018-02-12] MEDS: SUBLIMAZE 100 MCG/2 ML IV PRN ×4 (02:38→14:25)
[2018-02-12] MEDS: Phenergan 25 MG INJ IV PRN (07:08)
[2018-02-12] MEDS: LEVOFLOXACIN 750MG/150ML D5W 750 MG/150 ML BAG IV SCH (09:34)
[2018-02-12] MEDS: PROTONIX 40 MG IV IV SCH (09:35)
[2018-02-12] MEDS: Ranexa 500 MG PO SCH (09:35)
[2018-02-12] MEDS: LYRICA 100MG PO SCH (09:35)
[2018-02-12] MEDS: Wellbutrin SR 150 MG PO SCH (09:35)
--- NOTE | 2018-02-12 13:02 | PCM.DCORD ---
- Discharge Discharge Date: 02/12/18 Disposition: Home, Self-Care Condition: Good Prescriptions: New Metronidazole 500 mg [Flagyl 500 MG] 500 mg PO QID #16 tablet levoFLOXacin [Levofloxacin] 750 mg PO DAILY #2 tablet Continue Promethazine HCl 25 mg PO Q6HPRN PRN PRN Reason: Nausea Subcutaneous Insulin Pump [Insulin Pump] 1 each MC UD Pregabalin [Lyrica 100Mg] 100 mg PO BID Zolpidem Tartrate [Ambien] 10 mg PO HS #30 tablet Oxycodone HCl/Acetaminophen [Percocet 10-325 mg Tablet] 1 tablet PO Q4H PRN PRN #180 tablet PRN Reason: Pain Atorvastatin Calcium [Lipitor] 80 mg PO HS SUMAtriptan succinate [Imitrex] 100 mg PO DAILY PRN PRN PRN Reason: migraine Bupropion HCl [Wellbutrin] 150 mg PO BID Ranolazine 500 MG [Ranexa 500 MG] 500 mg PO BID Desvenlafaxine Succinate [Pristiq] 100 mg PO HS Isosorbide Mononitrate 30 mg [Imdur 30 MG] 30 mg PO HS Clopidogrel Bisulfate [Clopidogrel] 75 mg PO HS Follow up with: JENNYFER FANG MD [Primary Care Provider] - 02/18/18 2:15 pm
[2018-02-12] MEDS ORDERED: Colace 100 MG PO SCH (14:00)
[2018-02-12 14:59] VITALS: BP 127/62; PULSE 95; O2SAT 97
--- NOTE | 2018-02-14 11:19 | CONS ---
CONSULT DATE: 02/11/2018 REASON FOR CONSULT: Abdominal pain and bloody diarrhea. HISTORY: A 33 year-old white female who is familiar to myself. I did a hysterectomy about two and a half years ago on this individual and she did well. She comes in. she is 33 years old and she has had diabetes since age 6, insulin dependent. At this time her glucose was 250 and 350 on two separate occasions. She had low abdominal cramp-like pain that was severe and this started Wednesday and today is Wednesday and then she had a large bloody stool and she has a picture of the large bloody stool which is a significant bloody stool although it is not massive. This is her first episode. She has been doing nothing unusual. No unusual food intake, medicine intake, etc. Nobody has been ill that has is around her. She did have chills on Wednesday, Wednesday and Wednesday. She has not had any diarrhea. She has not had any vomiting but she did have severe nausea. Her weight has been fairly stable. She is doing better although she is taking Fentanyl. PHYSICAL EXAMINATION: She is alert. She is mildly obese. Vital signs stable. CHEST: Clear. COR: Regular. ABDOMEN: Moderately distended and moderately obese. LAB DATA AND TESTS: White blood cell count is normal. Hemoglobin satisfactory. CT scan suggesting a proctitis with some lymphadenopathy. IMPRESSION: This certainly is consistent with colitis/proctitis. She desires to have endoscopic exam while she is here. I think this is prudent. I think the risk is low and the evidence is still probably present. We will give her Golytely and examine her tomorrow.
== END 2018-02-12 15:10 | disposition home or self-care (01) | DRG 392 ==
LOC: ED 15:21 → MED SURG 18:26 → OBSVTOIN 02-10 09:08
PROVIDERS: ADMIT Family Medicine; ATTEND Family Medicine
DX: K52.9 Noninfective gastroenteritis and colitis, unspecified (principal); K92.2 Gastrointestinal hemorrhage, unspecified; K51.20 Ulcerative (chronic) proctitis without complications; T14.8XXA Other injury of unspecified body region, initial encounter; D86.9 Sarcoidosis, unspecified; R59.1 Generalized enlarged lymph nodes; R10.9 Unspecified abdominal pain; I50.9 Heart failure, unspecified; Z86.711 Personal history of pulmonary embolism; E10.9 Type 1 diabetes mellitus without complications; I25.810 Atherosclerosis of coronary artery bypass graft(s) without angina pectoris; J45.909 Unspecified asthma, uncomplicated; I25.2 Old myocardial infarction; Z79.899 Other long term (current) drug therapy
CPT/HCPCS: 36000; 36415; 74176; 76705; 80048; 80053; 80307; 81000; 81002; 83605; 83690; 85025; 85610; 85730; 86850; 86900; 86901; 87086; 93268; 94760; 96360; 96374; 96375; 99284; 99285; J0696; J1642; J1956; J2405; J2550; J3010; A9270-GY; G0378

== ENCOUNTER 2018-02-18 16:27 | Inpatient (IN) | payer MEDICARE ==
[2018-02-18] MEDS ORDERED: Sodium Chloride 0.9% 1000 ML 1,000 ML ONE ×3 (16:36→18:00)
[2018-02-18 16:59] LABS: VBG BASE EXCESS -2.1 (-2.0-2.0); VBG CARBOXYHEMOGLOBIN 2.5 % T HGB (0.0-6.9); VBG HCO3- 22.3 meq/L (22-28); VBG HEMOGLOBIN 11.8; VBG O2 SATURATION 76.8 (95-100); VBG POTASSIUM 4.2 (3.5-5.1); VBG pH 7.4 (7.32-7.42)
[2018-02-18] MEDS ORDERED: Sodium Chloride 0.9% 1000 ML 1,000 ML IV STA ×2 (17:13→17:14)
[2018-02-18 17:17] LABS: BASOPHIL % 0.3 % (0.0-0.4); Basophil (Absolute #) 0.03 (0-0.4); Eosinophil % 1.9 % (0.00-5.0); Eosinophil (Absolute #) 0.17 (0-0.5); Granulocyte Absolute (ANC) 6.52 (1.4-6.9); Granulocytes % 74.7 % (36.0-66.0); Hematocrit 34.1 % (35-47); Hemoglobin 11.5 gm/dl (12.0-16.0); Lymphocyte (Absolute #) 1.47 (1.0-4.6); Lymphocytes % 16.8 % (24.0-44.0); Mean Cell Volume 80.6 fl (78-100); Mean Corpuscular Hemoglobin 27.1 pg (26-32); Mean Corpuscular Hgb Concent. 33.7 g/dl (32-36); Mean Platelet Volume 11.3 fl (6-9.5); Monocyte (Absolute #) 0.55 (0.0-1.3); Monocytes % 6.3 % (0.0-12.0); Platelet Count 220 K/mm3 (150-450); Red Blood Count 4.23 M/mm3 (4.1-5.4); Red Cell Distribution Width 15.3 % (11.5-14.0); White Blood Count 8.7 K/mm3 (4.0-10.5)
[2018-02-18 17:24] LABS: Appearance CLEAR (CLEAR); Bilirubin NEGATIVE (NEGATIVE); Blood NEGATIVE Ery/ul (0-5); Glucose 1000 mg/dL (NEGATIVE); Ketones SMALL (NEGATIVE); Leukocyte Esterase NEGATIVE (NEGATIVE); Nitrite NEGATIVE (NEGATIVE); Protein,Urine Dip NEGATIVE (Negative); Specific Gravity <=1.005 (1.005-1.025); Urobilinogen NORMAL mg/dL (0-1)
[2018-02-18 17:25] LABS: Bacteria FEW /HPF (NEGATIVE)
--- NOTE | 2018-02-18 17:44 | ERPHSYRPT ---
- History of Present Illness Time Seen by Provider: 02/18/18 17:32 Source: patient Exam Limitations: no limitations Patient Subjective Stated Complaint: Weakness, hyperglycemia Triage Nursing Assessment: Pt presents to the ED with complaints of hyperglycemia x3 days. Pt states she was seen by PCP today for abdominal pain, labs were drawn indicating glucose of 890 and she was sent to ED. Pt states no other complaints at this time, denies pain. PT is A&O x4, no distress noted, skin PWD. Physician History: 33-year-old white female arrives with complaint that she was told by her family doctor to come here secondary to an elevated blood sugar. According to patient she is having abdominal pain for one week she went to see her family doctor. Patient was evaluated labs were drawn patient was today later called at home and told that she needed to go the emergency room secondary to her blood sugars were up., She states she's patient has not been vomiting she complains of generalized abdominal pain for one week. Past medical history includes congestive heart failure, diabetes type 1, myocardial infarction, pulmonary embolism, sarcoidosis. Past surgical history includes CABG, hysterectomy, gallbladder, patient has had a lymph node a lung biopsy she has a port Timing/Duration: week(s) (abdominal pain for one week) Severity: moderate Modifying Factors: Improves With: nothing Associated Symptoms: abdominal pain, malaise, No nausea, No vomiting, No shortness of breath, No heartburn, No diaphoresis, No cough, No chills, No chest pain, No fever, No headaches, No loss of appetite, No rash, No syncope, No seizure Allergies/Adverse Reactions: meperidine HCl [From Demerol] Allergy (Mild, Verified 02/09/18 02:13) Hives Penicillins Allergy (Mild, Verified 02/09/18 02:13) Rash propoxyphene napsylate [From Darvocet-N 100] Allergy (Mild, Verified 02/09/18 02 :13) Hives levofloxacin [From Levaquin] Allergy (Verified 02/09/18 02:13) IMMUNE TO IT ondansetron HCl [From Zofran] Adverse Reaction (Intermediate, Verified 02/09/18 02:13) Nausea and Vomiting morphine Adverse Reaction (Verified 02/09/18 02:13) sulfamethoxazole [From Bactrim] Adverse Reaction (Verified 02/09/18 02:13) trimethoprim [From Bactrim] Adverse Reaction (Verified 02/09/18 02:13) Home Medications: Promethazine HCl 25 mg PO Q6HPRN PRN 03/22/14 [History] Subcutaneous Insulin Pump [Insulin Pump] 1 each MC UD 03/22/14 [History] Pregabalin [Lyrica 100Mg] 100 mg PO BID 12/23/15 [History] Atorvastatin Calcium [Lipitor] 80 mg PO HS 01/09/17 [History] SUMAtriptan succinate [Imitrex] 100 mg PO DAILY PRN PRN 04/21/17 [History] Bupropion HCl [Wellbutrin] 150 mg PO BID 09/02/17 [History] Clopidogrel Bisulfate [Clopidogrel] 75 mg PO HS 02/02/18 [History] Desvenlafaxine Succinate [Pristiq] 100 mg PO HS 02/02/18 [History] Isosorbide Mononitrate 30 mg [Imdur 30 MG] 30 mg PO HS 02/02/18 [History] Ranolazine 500 MG [Ranexa 500 MG] 500 mg PO BID 02/02/18 [History] Hx Tetanus, Diphtheria Vaccination/Date Given: Yes Hx Influenza Vaccination/Date Given: No Hx Pneumococcal Vaccination/Date Given: No - Review of Systems Constitutional: No Fever, No Chills Eyes: No Symptoms Ears, Nose, & Throat: No Symptoms Respiratory: No Cough, No Dyspnea Cardiac: No Chest Pain, No Edema, No Syncope Abdominal/Gastrointestinal: Abdominal Pain, No Nausea, No Diarrhea, No Melena Genitourinary Symptoms: No Dysuria Musculoskeletal: No Back Pain, No Neck Pain Skin: No Rash Neurological: No Dizziness, No Focal Weakness, No Sensory Changes Psychological: No Symptoms Endocrine: No Symptoms All Other Systems: Reviewed and Negative - Past Medical History Pertinent Past Medical History: Yes Neurological History: No Pertinent History ENT History: No Pertinent History Cardiac History: Congestive Heart Failure, Myocardial Infarction ([place]) Respiratory History: CHF, Pulmonary Embolism, Other Endocrine Medical History: Diabetes Type I Musculoskeletal History: No Pertinent History GI Medical History: No Pertinent History History: No Pertinent History Psycho-Social History: No Pertinent History Female Reproductive Disorders: No Pertinent History Other Medical History: Sarcoidosis, slipped disc - Past Surgical History Past Surgical History: Yes Neuro Surgical History: No Pertinent History Cardiac: Cardiac Catheterization Respiratory: Other Gastrointestinal: Cholecystectomy, Other Genitourinary: No Pertinent History Musculoskeletal: No Pertinent History Female Surgical History: Hysterectomy, Section Other Surgical History: LYMP NODE AND LUNG BIOPSY,PORT, liver biopsy, nose repair, diverticulosis. cabg- double bypass - Social History Smoking Status: Never smoker How long have you smoked: 1 Exposure to second hand smoke: No Alcohol Use: None Drug Use: none Patient Lives Alone: No Significant Family History: no pertinent family hx - Female History Hx Now: No - Nursing Vital Signs Nursing Vital Signs: Initial Vital Signs Temperature 98.2 F 02/18/18 16:34 Pulse Rate 97 H 02/18/18 16:34 Respiratory Rate 16 02/18/18 16:34 Blood Pressure 140/76 02/18/18 16:34 O2 Sat by Pulse Oximetry 97 02/18/18 16:34 Pain Scale Pain Intensity 2 - Physical Exam General Appearance: mild distress Eye Exam: PERRL/EOMI, eyes nml inspection Ears, Nose, Throat Exam: normal ENT inspection, TMs normal, pharynx normal, moist mucous membranes Neck Exam: normal inspection, non-tender, supple, full range of motion Respiratory Exam: normal breath sounds, lungs clear, No respiratory distress Cardiovascular Exam: regular rate/rhythm, normal heart sounds, normal peripheral pulses Gastrointestinal/Abdomen Exam: soft, normal bowel sounds, tenderness (diffuse tenderness) Back Exam: normal inspection, normal range of motion, No CVA tenderness, No vertebral tenderness Extremity Exam: normal inspection, normal range of motion, pelvis stable Neurologic Exam: alert, oriented x 3, cooperative, interior design assistant II-XII nml as tested, normal mood/affect, nml cerebellar function, nml station & gait, sensation nml, No motor deficits SpO2 Interpretation: normal (98%) SpO2: 98 Oxygen Delivery: Room Air Ordered Tests: Active Orders 24 hr Category Date Time Status Clean Catch Urine Specimen STAT Care 02/18/18 16:48 Active EKG-ER Only STAT Care 02/18/18 16:48 Active IV Insertion STAT Care 02/18/18 16:48 Active OBSTR/ACUTE ABDOMEN SERIES Stat Exams 02/18/18 18:22 Ordered CBC W DIFF Stat Lab 02/18/18 17:00 Completed CMP Stat Lab 02/18/18 17:00 Completed Glucose,Critical Care Stat Lab 02/18/18 16:57 Completed HCG QUALITATIVE,SERUM Stat Lab 02/18/18 17:00 Completed HCG, Quantitative (Inhouse) Stat Lab 02/18/18 15:00 Completed UA W/ MICROSCOPIC Stat Lab 02/18/18 17:00 Completed VENOUS BLOOD GAS Stat Lab 02/18/18 16:57 Completed Medication Summary Generic Name Dose Route Start Last Admin Trade Name Freq PRN Reason Stop Dose Admin Insulin Human Regular 100 101 mls @ 8.08 mls/hr 02/18/18 19:00 02/18/18 19:07 units/ Sodium Chloride IV 03/20/18 18:59 8 units/hr .[id number] JUSTIN 8.08 mls/hr Administration 8 UNITS/HR Sodium Chloride 1,000 mls @ 100 mls/hr 02/18/18 19:00 02/18/18 19:07 Sodium Chloride 0.9% 1000 Ml IV 03/20/18 18:59 100 mls/hr .Q10H JUSTIN Administration Discontinued Medications Generic Name Dose Route Start Last Admin Trade Name Freq PRN Reason Stop Dose Admin Sodium Chloride Confirm 02/18/18 16:36 Sodium Chloride 0.9% 1000 Ml Administered 02/18/18 16:37 Dose 1,000 mls @ ud .ROUTE .STK-MED ONE Sodium Chloride 1,000 mls @ 999 mls/hr 02/18/18 17:13 02/18/18 17:00 Sodium Chloride 0.9% 1000 Ml IV 02/18/18 18:13 999 mls/hr .Q1H1M STA Administration Sodium Chloride 1,000 mls @ 999 mls/hr 02/18/18 17:14 02/18/18 17:45 Sodium Chloride 0.9% 1000 Ml IV 02/18/18 18:14 999 mls/hr .Q1H1M STA Administration Sodium Chloride Confirm 02/18/18 17:44 Sodium Chloride 0.9% 1000 Ml Administered 02/18/18 17:45 Dose 1,000 mls @ ud .ROUTE .STK-MED ONE Sodium Chloride Confirm 02/18/18 18:00 Sodium Chloride 0.9% 1000 Ml Administered 02/18/18 18:01 Dose 1,000 mls @ ud .ROUTE .STK-MED ONE Sodium Chloride Confirm 02/18/18 18:59 Sodium Chloride 0.9% 100 Ml Ivpb Administered 02/18/18 19:00 Dose 100 mls @ ud IV .STK-MED ONE Insulin Human Regular Confirm 02/18/18 18:59 Novolin R Administered 02/18/18 19:00 Dose 1 unit .ROUTE .STK-MED ONE Morphine Sulfate 4 mg 02/18/18 17:51 02/18/18 18:05 Morphine Sulfate 4 Mg Inj IV 02/18/18 17:52 4 mg STAT ONE Administration Morphine Sulfate Confirm 02/18/18 18:04 Morphine Sulfate 4 Mg Inj Administered 02/18/18 18:05 Dose 4 mg .ROUTE .STK-MED ONE Promethazine HCl 12.5 mg 02/18/18 17:51 02/18/18 18:05 Phenergan 25 Mg Inj IV 02/18/18 17:52 12.5 mg STAT ONE Administration Promethazine HCl Confirm 02/18/18 18:04 Phenergan 25 Mg Inj Administered 02/18/18 18:05 Dose 25 mg .ROUTE .STK-MED ONE Lab/Rad Data: Laboratory Result Diagrams 02/18/18 17:00 02/18/18 17:00 Laboratory Results 02/18/18 02/18/18 02/18/18 Range/Units 17:00 17:00 17:00 WBC (4.0-10.5) K/mm3 RBC (4.1-5.4) M/mm3 Hgb (12.0-16.0) gm/dl Hct (35-47) % MCV (78-100) fl MCH (26-32) pg MCHC (32-36) g/dl RDW (11.5-14.0) % Plt Count (150-450) K/mm3 MPV (6-9.5) fl Gran % (36.0-66.0) % Eos # (Auto) (0-0.5) Absolute Lymphs (auto) (1.0-4.6) Absolute Monos (auto) (0.0-1.3) Lymphocytes % (24.0-44.0) % Monocytes % (0.0-12.0) % Eosinophils % (0.00-5.0) % Basophils % (0.0-0.4) % Absolute Granulocytes (1.4-6.9) Basophils # (0-0.4) pO2/FiO2 Ratio % VBG pH (7.32-7.42) VBG pCO2 at Pat Temp (42-55) mm/Hg VBG pO2 at Pat Temp (25-40) mm/Hg VBG HCO3 (22-28) meq/L VBG O2 Sat ([place]) (95-100) VBG Base Excess (-2.0-2.0) VBG Hemoglobin VBG Carboxyhemoglobin (0.0-6.9) % T HGB POC Potassium (3.5-5.1) Glucose 816 H* (70-110) Sodium 128 L (137-145) mmol/L Potassium 4.3 (3.5-5.1) mmol/L Chloride 92 L (98-107) mmol/L Carbon Dioxide 20 L (22-30) mmol/L Anion Gap 20.9 H (5-15) MEQ/L BUN 17 (7-17) mg/dL Creatinine 0.67 (0.52-1.04) mg/dL Estimated GFR > 60.0 ML/MIN Calcium 9.1 (8.4-10.2) mg/dL Total Bilirubin 1.00 (0.2-1.3) mg/dL AST 29 (14-36) U/L ALT 32 (0-35) U/L Alkaline Phosphatase 227 H (38-126) U/L Serum Total Protein 7.0 (6.3-8.2) g/dL Albumin 4.2 (3.5-5.0) g/dL Beta HCG, Quant mIU/ml Serum , Qual POSITIVE (Negative) Ur Collection Type CLEAN CATCH Urine Color LT.YELLOW (YELLOW) Urine Appearance CLEAR (CLEAR) Urine pH 5.0 (5-6) Ur Specific [place] <=1.005 (1.005-1.025) Urine Protein NEGATIVE (Negative) Urine Ketones SMALL (NEGATIVE) Urine Blood NEGATIVE (0-5) Zain/ul Urine Nitrite NEGATIVE (NEGATIVE) Urine Bilirubin NEGATIVE (NEGATIVE) Urine Urobilinogen NORMAL (0-1) mg/dL Ur Leukocyte Esterase NEGATIVE (NEGATIVE) Urine Bacteria FEW (NEGATIVE) /HPF Urine Culture Reflexed NO (NO) Urine Glucose 1000 (NEGATIVE) mg/dL Specimen Received 02/18/18 1720 02/18/18 02/18/1802/18/18 Range/Units 17:00 16:57 16:57 WBC 8.7 (4.0-10.5) K/mm3 RBC 4.23 (4.1-5.4) M/mm3 Hgb 11.5 L (12.0-16.0) gm/dl Hct 34.1 L (35-47) % MCV 80.6 (78-100) fl MCH 27.1 (26-32) pg MCHC 33.7 (32-36) g/dl RDW 15.3 H (11.5-14.0) % Plt Count 220 (150-450) K/mm3 MPV 11.3 H (6-9.5) fl Gran % 74.7 H (36.0-66.0) % Eos # (Auto) 0.17 (0-0.5) Absolute Lymphs (auto) 1.47 (1.0-4.6) Absolute Monos (auto) 0.55 (0.0-1.3) Lymphocytes % 16.8 L (24.0-44.0) % Monocytes % 6.3 (0.0-12.0) % Eosinophils % 1.9 (0.00-5.0) % Basophils % 0.3 (0.0-0.4) % Absolute Granulocytes 6.52 (1.4-6.9) Basophils # 0.03 (0-0.4) pO2/FiO2 Ratio 21.0 % VBG pH 7.40 (7.32-7.42) VBG pCO2 at Pat Temp 36 L (42-55) mm/Hg VBG pO2 at Pat Temp 36 (25-40) mm/Hg VBG HCO3 22.3 (22-28) meq/L VBG O2 Sat ([place]) 76.8 L (95-100) VBG Base Excess -2.1 L (-2.0-2.0) VBG Hemoglobin 11.8 VBG Carboxyhemoglobin 2.5 (0.0-6.9) % T HGB POC Potassium 4.2 (3.5-5.1) Glucose > 750 H* (70-110) Sodium (137-145) mmol/L Potassium (3.5-5.1) mmol/L Chloride (98-107) mmol/L Carbon Dioxide (22-30) mmol/L Anion Gap (5-15) MEQ/L BUN (7-17) mg/dL Creatinine (0.52-1.04) mg/dL Estimated GFR ML/MIN Calcium (8.4-10.2) mg/dL Total Bilirubin (0.2-1.3) mg/dL AST (14-36) U/L ALT (0-35) U/L Alkaline Phosphatase (38-126) U/L Serum Total Protein (6.3-8.2) g/dL Albumin (3.5-5.0) g/dL Beta HCG, Quant mIU/ml Serum , Qual (Negative) Ur Collection Type Urine Color (YELLOW) Urine Appearance (CLEAR) Urine pH (5-6) Ur Specific [place] (1.005-1.025) Urine Protein (Negative) Urine Ketones (NEGATIVE) Urine Blood (0-5) Zain/ul Urine Nitrite (NEGATIVE) Urine Bilirubin (NEGATIVE) Urine Urobilinogen (0-1) mg/dL Ur Leukocyte Esterase (NEGATIVE) Urine Bacteria (NEGATIVE) /HPF Urine Culture Reflexed (NO) Urine Glucose (NEGATIVE) mg/dL Specimen Received 02/18/18 Range/Units 15:00 WBC (4.0-10.5) K/mm3 RBC (4.1-5.4) M/mm3 Hgb (12.0-16.0) gm/dl Hct (35-47) % MCV (78-100) fl MCH (26-32) pg MCHC (32-36) g/dl RDW (11.5-14.0) % Plt Count (150-450) K/mm3 MPV (6-9.5) fl Gran % (36.0-66.0) % Eos # (Auto) (0-0.5) Absolute Lymphs (auto) (1.0-4.6) Absolute Monos (auto) (0.0-1.3) Lymphocytes % (24.0-44.0) % Monocytes % (0.0-12.0) % Eosinophils % (0.00-5.0) % Basophils % (0.0-0.4) % Absolute Granulocytes (1.4-6.9) Basophils # (0-0.4) pO2/FiO2 Ratio % VBG pH (7.32-7.42) VBG pCO2 at Pat Temp (42-55) mm/Hg VBG pO2 at Pat Temp (25-40) mm/Hg VBG HCO3 (22-28) meq/L VBG O2 Sat ([place]) (95-100) VBG Base Excess (-2.0-2.0) VBG Hemoglobin VBG Carboxyhemoglobin (0.0-6.9) % T HGB POC Potassium (3.5-5.1) Glucose (70-110) Sodium (137-145) mmol/L Potassium (3.5-5.1) mmol/L Chloride (98-107) mmol/L Carbon Dioxide (22-30) mmol/L Anion Gap (5-15) MEQ/L BUN (7-17) mg/dL Creatinine (0.52-1.04) mg/dL Estimated GFR ML/MIN Calcium (8.4-10.2) mg/dL Total Bilirubin (0.2-1.3) mg/dL AST (14-36) U/L ALT (0-35) U/L Alkaline Phosphatase (38-126) U/L Serum Total Protein (6.3-8.2) g/dL Albumin (3.5-5.0) g/dL Beta HCG, Quant 3.48 mIU/ml Serum , Qual (Negative) Ur Collection Type Urine Color (YELLOW) Urine Appearance (CLEAR) Urine pH (5-6) Ur Specific [place] (1.005-1.025) Urine Protein (Negative) Urine Ketones (NEGATIVE) Urine Blood (0-5) Zain/ul Urine Nitrite (NEGATIVE) Urine Bilirubin (NEGATIVE) Urine Urobilinogen (0-1) mg/dL Ur Leukocyte Esterase (NEGATIVE) Urine Bacteria (NEGATIVE) /HPF Urine Culture Reflexed (NO) Urine Glucose (NEGATIVE) mg/dL Specimen Received - Progress Progress: improved Progress Note: 02/18/18 17:47 33-year-old white female with history of diabetes type 1 congestive heart failure pulmonary embolism, myocardial infarction, sarcoidosis Patient arrives with complaint of diffuse abdominal pain for one week she apparently was seen by Dr. Fang him this afternoon apparently was released but later had been called back secondary to markedly elevated blood sugar. Patient states she has been having abdominal pain for one week she has been seen in the emergency multiple times for complaints of abdominal pain. On arrival patient is started with IV normal saline 2 L have been ordered she had a blood sugar which read high high high Patient apparently had a blood sugar of 890 from blood sugar obtained at Dr. Fang is. Patient's pH is 7.0 PCO2 is 36 EKG sinus rhythm 92 bpm normal axis no acute ST or T wave changes are noted patient with a small amount of ketones in her urine The patient's white cell 8.7 hemoglobin 11.5 hematocrit 34.1. Amylase lipase have been ordered. Plan await patient's chemistry recheck Accu-Chek after 2 L of saline have been infused Await amylase and lipase. Will go ahead and give patient morphine 4 mg IV and Phenergan 12.5 mg IV ( patient states she cannot take by mouth morphine but she can take IV morphine) 02/18/18 18:55 Patient's case is discussed with Dr. Abdias Calero requested that we get an acute abdominal series on the patient. Patient is still over 500 glucose. She does not appear to be acidotic. Dr. Calero requests that we go ahead and place patient on an insulin drip provide IV normal saline at 100 mL per hour. Continue to provide morphine and Phenergan for pain and nausea. Impression 1 hyperglycemia. 2 abdominal pain. - Departure Time of Disposition: 19:18 Departure Disposition: Observation Clinical Impression: Hyperglycemia Abdominal pain Qualifiers: Abdominal location: generalized Qualified Code(s): R10.84 - Generalized abdominal pain Condition: Fair Critical Care Time: No Referrals: JENNYFER FANG MD [Primary Care Provider] -
[2018-02-18 17:45] LABS: ALBUMIN 4.2 g/dL (3.5-5.0); ALKALINE PHOSPHATASE 227 U/L (38-126); ANION GAP 20.9 MEQ/L (5-15); BLOOD UREA NITROGEN 17 mg/dL (7-17); CHLORIDE 92 mmol/L (98-107); Calcium 9.1 mg/dL (8.4-10.2); Carbon Dioxide 20 mmol/L (22-30); Creatinine 1 0.67 mg/dL (0.52-1.04); Potassium 4.3 mmol/L (3.5-5.1); SGOT/AST 29 U/L (14-36); SGPT/ALT 32 U/L (0-35); SODIUM 128 mmol/L (137-145)
[2018-02-18] MEDS ORDERED: MORPHINE SULFATE 4 MG INJ IV ONE (17:51)
[2018-02-18] MEDS ORDERED: Phenergan 25 MG INJ IV ONE (17:51)
[2018-02-18 18:00] LABS: Glucose 816 mg/dL (74-106)
[2018-02-18] MEDS ORDERED: Phenergan 25 MG INJ ONE (18:04)
[2018-02-18] MEDS ORDERED: MORPHINE SULFATE 4 MG INJ ONE (18:04)
[2018-02-18] MEDS ORDERED: Sodium Chloride 0.9% 100 ML IVPB 100 ML IV ONE (18:59)
[2018-02-18] MEDS ORDERED: NovoLIN R ONE (18:59)
[2018-02-18] MEDS ORDERED: Sodium Chloride 0.9% 1000 ML 1,000 ML IV SCH (19:00)
[2018-02-18] MEDS: NOVOLIN R INSULIN (FOR DRIPS)** 100 UNITS in Sodium Chloride 0.9% 100 ML IVPB 100 ML IV SCH (19:07)
[2018-02-18] MEDS ORDERED: Phenergan 25 MG INJ IV PRN (20:18)
[2018-02-18] MEDS: MORPHINE SULFATE 4 MG INJ IV PRN (21:52)
--- NOTE | 2018-02-18 22:40 | XRAY ---
Indication: Abdomen pain. Comparison: Chest exam February 02, 2018. 2 views of the abdomen demonstrates nonspecific nonobstructed bowel gas pattern with mild fecal debris in the descending colon. Left and right mid abdomen surgical clips and bilateral pelvic suture material. Remaining solid organs are unremarkable. Osseous structures intact with lower lumbar degenerative changes. Single PA chest remains clear. Heart is not enlarged again with CABG surgery and left-sided Port-A-Cath. Bony thorax intact.. Impression: Nonacute nonobstructed abdomen. Stable nonacute one view chest with chronic features.
[2018-02-18 23:21] LABS: ANION GAP 13.4 MEQ/L (5-15); BLOOD UREA NITROGEN 14 mg/dL (7-17); CHLORIDE 101 mmol/L (98-107); Calcium 8.9 mg/dL (8.4-10.2); Carbon Dioxide 28 mmol/L (22-30); Creatinine 1 0.67 mg/dL (0.52-1.04); Glucose 417 mg/dL (74-106); SODIUM 138 mmol/L (137-145)
--- NOTE | 2018-02-18 23:38 | PCM.HP ---
History of Present Illness - Chief Complaint Chief Complaint: ABD pain History of Present Illness: is a 33 year old female pt of Dr. Yang varela Type I DM and hx CABG x 2 who was admitted through the ER today with abd pain and c.diff positive stool. She wa sin the hospital about 2 weeks ago with colitis (had abd pain and bright red bleeding per rectum). She was supposed to have a colonoscopy but for some reason her prep was stopped so she did not get a colonoscopy and was sent home enext day. About 2d ago she started having watery stools and her abd pain increased. She has not been tolerating po well. Fever up to 101. She saw Dr. Soria in office today and he ran labs and did a c.diff test. Notably, her BS was 816 (she states her insulin pump has not been working well and has been disconnected now), WBC 8.7, Na 128, CO2 20, amylase & lipase nl, ESR 42, c. diff positive (stool), and hcg 3.48 (read as positive - pt s/p hysterectomy). She was admitted on insulin drip, IV fluids, and will be started on IV flagyl and po vancomycin. - Review of Systems Constitutional: Fever, Chills, Fatigue, Weakness Ears, Nose, & Throat: Mouth Pain (thrush) Respiratory: Cough Cardiac: Chest Pain (chronic, mild -no exacerbation recently.) Abdominal/Gastrointestinal: Abdominal Pain, Nausea, Diarrhea Psychological: No Anxiety, No Depression, No Suicidal Ideations All Other Systems: Reviewed and Negative Medications & Allergies Home Medications: Home Medication List Promethazine HCl 25 mg PO Q6HPRN PRN 03/22/14 [History Confirmed 02/18/18] Subcutaneous Insulin Pump [Insulin Pump] 1 each [facility] 03/22/14 [History Confirmed 02/18/18] Pregabalin [Lyrica 100Mg] 100 mg PO BID 12/23/15 [History Confirmed 02/18/18] Zolpidem Tartrate [Ambien] 10 mg PO HS #30 tablet 03/13/16 [Rx Confirmed ] Oxycodone HCl/Acetaminophen [Percocet 10-325 mg Tablet] 1 tablet PO Q4H PRN PRN #180 tablet 04/28/16 [Rx Confirmed 02/18/18] Atorvastatin Calcium [Lipitor] 80 mg PO HS 01/09/17 [History Confirmed 02/18/18] SUMAtriptan succinate [Imitrex] 100 mg PO DAILY PRN PRN 04/21/17 [History Confirmed 02/18/18] Bupropion HCl [Wellbutrin] 150 mg PO BID 09/02/17 [History Confirmed 02/18/18] Clopidogrel Bisulfate [Clopidogrel] 75 mg PO HS 02/02/18 [History Confirmed 01/31] Desvenlafaxine Succinate [Pristiq] 100 mg PO HS 02/02/18 [History Confirmed 01/31] Isosorbide Mononitrate 30 mg [Imdur 30 MG] 30 mg PO HS 02/02/18 [History Confirmed 02/18/18] Ranolazine 500 MG [Ranexa 500 MG] 500 mg PO BID 02/02/18 [History Confirmed 02/18/18] Metronidazole 500 mg [Flagyl 500 MG] 500 mg PO QID #16 tablet 02/12/18 [ Rx Confirmed 02/18/18] Allergies/Adverse Reactions: Allergies Allergy/AdvReac Type Severity Reaction Status Date / Time meperidine HCl [From Demerol] Allergy Mild Hives Verified 02/09/18 02:13 Penicillins Allergy Mild Rash Verified 02/09/18 02:13 propoxyphene napsylate Allergy Mild Hives Verified 02/09/18 02:13 [From Darvocet-N 100] levofloxacin [From Levaquin] Allergy IMMUNE TO Verified 02/09/18 02:13 IT ondansetron HCl [From Zofran] AdvReac Intermediate Nausea and Verified 02/09/18 02:13 Vomiting morphine AdvReac Verified 02/09/18 02:13 sulfamethoxazole AdvReac Verified 02/09/18 02:13 [From Bactrim] trimethoprim [From Bactrim] AdvReac Verified 02/09/18 02:13 - Past Medical History Past Medical History: Yes Neurological History: No Pertinent History ENT History: No Pertinent History Cardiac History: Congestive Heart Failure, Myocardial Infarction ([place]) Respiratory History: CHF, Pulmonary Embolism, Other Endocrine Medical History: Diabetes Type I Musculoskelatal History: No Pertinent History GI Medical History: No Pertinent History History: No Pertinent History Pyscho-Social History: No Pertinent History Reproductive Disorders: No Pertinent History Comment: Sarcoidosis, slipped disc - Female History Are you now?: No - Past Surgical History Past Surgical History: Yes Neuro Surgical History: No Pertinent History Cardiac History: Cardiac Catheterization Respiratory Surgery: Other GI Surgical History: Cholecystectomy, Other Genitourinary Surgical Hx: No Pertinent History Musculskeletal Surgical Hx: No Pertinent History Female Surgical History: Hysterectomy, Section Other Surgical History: LYMP NODE AND LUNG BIOPSY,PORT, liver biopsy, nose repair, diverticulosis. cabg- double bypass - Social History Smoking Status: Former smoker How long have you smoked: 1 Exposure to second hand smoke: No Alcohol: None Drug Use: none Significant Family History: no pertinent family hx - Physical Exam Vital Signs: Vital Signs - 24 hr Temp Pulse Resp BP Pulse Ox 02/18/18 20:43 98.4 F 92 H 18 117/74 99 02/18/18 19:50 87 98 02/18/18 19:18 98 02/18/18 19:08 84 17 114/81 98 02/18/18 18:31 82 14 105/68 99 02/18/18 17:18 85 16 110/62 98 02/18/18 16:34 98.2 F 97 H 16 140/76 97 General Appearance: no apparent distress, alert, obese Neurologic Exam: oriented x 3, cooperative Eye Exam: eyes nml inspection Ears, Nose, Throat Exam: moist mucous membranes Neck Exam: normal inspection, non-tender, No lymphadenopathy Respiratory Exam: normal breath sounds, lungs clear, No crackles/rales, No rhonchi, No wheezing Cardiovascular Exam: regular rate/rhythm, normal heart sounds, No murmur Gastrointestinal/Abdomen Exam: soft, normal bowel sounds, tenderness (LLQ, suprapubic, RLQ), No distention, No mass, No guarding, No rebound Back Exam: normal inspection, No rash Extremity Exam: normal inspection, No pedal edema, No swelling Results - Labs Lab/Micro Results: Accuchecks Date 02/18/18 Date 02/18/18 Date 02/18/18 Time 22:43 Time 21:30 Time 20:30 Accucheck Value: 376 Accucheck Value: 345 Accucheck Value: 423 Accucheck Value: 536 Lab Results-Last 24 Hours 0702/18/18 02/18/18 Range/Units 15:00 16:57 16:57 WBC (4.0-10.5) K/mm3 RBC (4.1-5.4) M/mm3 Hgb (12.0-16.0) gm/dl Hct (35-47) % MCV (78-100) fl MCH (26-32) pg MCHC (32-36) g/dl RDW (11.5-14.0) % Plt Count (150-450) K/mm3 MPV (6-9.5) fl Gran % (36.0-66.0) % Eos # (Auto) (0-0.5) Absolute Lymphs (auto) (1.0-4.6) Absolute Monos (auto) (0.0-1.3) Lymphocytes % (24.0-44.0) % Monocytes % (0.0-12.0) % Eosinophils % (0.00-5.0) % Basophils % (0.0-0.4) % Absolute Granulocytes (1.4-6.9) Basophils # (0-0.4) pO2/FiO2 Ratio 21.0 % VBG pH 7.40 (7.32-7.42) VBG pCO2 at Pat Temp 36 L (42-55) mm/Hg VBG pO2 at Pat Temp 36 (25-40) mm/Hg VBG HCO3 22.3 (22-28) meq/L VBG O2 Sat ([place]) 76.8 L (95-100) VBG Base Excess -2.1 L (-2.0-2.0) VBG Hemoglobin 11.8 VBG Carboxyhemoglobin 2.5 (0.0-6.9) % T HGB POC Potassium 4.2 (3.5-5.1) Glucose > 750 H* (70-110) Sodium (137-145) mmol/L Potassium (3.5-5.1) mmol/L Chloride (98-107) mmol/L Carbon Dioxide (22-30) mmol/L Anion Gap (5-15) MEQ/L BUN (7-17) mg/dL Creatinine (0.52-1.04) mg/dL Estimated GFR ML/MIN Calcium (8.4-10.2) mg/dL Total Bilirubin (0.2-1.3) mg/dL AST (14-36) U/L ALT (0-35) U/L Alkaline Phosphatase (38-126) U/L Serum Total Protein (6.3-8.2) g/dL Albumin (3.5-5.0) g/dL Beta HCG, Quant 3.48 mIU/ml Serum , Qual (Negative) Ur Collection Type Urine Color (YELLOW) Urine Appearance (CLEAR) Urine pH (5-6) Ur Specific [place] (1.005-1.025) Urine Protein (Negative) Urine Ketones (NEGATIVE) Urine Blood (0-5) Zain/ul Urine Nitrite (NEGATIVE) Urine Bilirubin (NEGATIVE) Urine Urobilinogen (0-1) mg/dL Ur Leukocyte Esterase (NEGATIVE) Urine Bacteria (NEGATIVE) /HPF Urine Culture Reflexed (NO) Urine Glucose (NEGATIVE) mg/dL Specimen Received 02/18/18 02/18/18 02/18/18 Range/Units 17:00 17:00 17:00 WBC 8.7 (4.0-10.5) K/mm3 RBC 4.23 (4.1-5.4) M/mm3 Hgb 11.5 L (12.0-16.0) gm/dl Hct 34.1 L (35-47) % MCV 80.6 (78-100) fl MCH 27.1 (26-32) pg MCHC 33.7 (32-36) g/dl RDW 15.3 H (11.5-14.0) % Plt Count 220 (150-450) K/mm3 MPV 11.3 H (6-9.5) fl Gran % 74.7 H (36.0-66.0) % Eos # (Auto) 0.17 (0-0.5) Absolute Lymphs (auto) 1.47 (1.0-4.6) Absolute Monos (auto) 0.55 (0.0-1.3) Lymphocytes % 16.8 L (24.0-44.0) % Monocytes % 6.3 (0.0-12.0) % Eosinophils % 1.9 (0.00-5.0) % Basophils % 0.3 (0.0-0.4) % Absolute Granulocytes 6.52 (1.4-6.9) Basophils # 0.03 (0-0.4) pO2/FiO2 Ratio % VBG pH (7.32-7.42) VBG pCO2 at Pat Temp (42-55) mm/Hg VBG pO2 at Pat Temp (25-40) mm/Hg VBG HCO3 (22-28) meq/L VBG O2 Sat ([place]) (95-100) VBG Base Excess (-2.0-2.0) VBG Hemoglobin VBG Carboxyhemoglobin (0.0-6.9) % T HGB POC Potassium (3.5-5.1) Glucose 816 H* (70-110) Sodium 128 L (137-145) mmol/L Potassium 4.3 (3.5-5.1) mmol/L Chloride 92 L (98-107) mmol/L Carbon Dioxide 20 L (22-30) mmol/L Anion Gap 20.9 H (5-15) MEQ/L BUN 17 (7-17) mg/dL Creatinine 0.67 (0.52-1.04) mg/dL Estimated GFR > 60.0 ML/MIN Calcium 9.1 (8.4-10.2) mg/dL Total Bilirubin 1.00 (0.2-1.3) mg/dL AST 29 (14-36) U/L ALT 32 (0-35) U/L Alkaline Phosphatase 227 H (38-126) U/L Serum Total Protein 7.0 (6.3-8.2) g/dL Albumin 4.2 (3.5-5.0) g/dL Beta HCG, Quant mIU/ml Serum , Qual POSITIVE (Negative) Ur Collection Type Urine Color (YELLOW) Urine Appearance (CLEAR) Urine pH (5-6) Ur Specific [place] (1.005-1.025) Urine Protein (Negative) Urine Ketones (NEGATIVE) Urine Blood (0-5) Zain/ul Urine Nitrite (NEGATIVE) Urine Bilirubin (NEGATIVE) Urine Urobilinogen (0-1) mg/dL Ur Leukocyte Esterase (NEGATIVE) Urine Bacteria (NEGATIVE) /HPF Urine Culture Reflexed (NO) Urine Glucose (NEGATIVE) mg/dL Specimen Received 02/18/18 02/18/18 Range/Units 17:00 23:00 WBC (4.0-10.5) K/mm3 RBC (4.1-5.4) M/mm3 Hgb (12.0-16.0) gm/dl Hct (35-47) % MCV (78-100) fl MCH (26-32) pg MCHC (32-36) g/dl RDW (11.5-14.0) % Plt Count (150-450) K/mm3 MPV (6-9.5) fl Gran % (36.0-66.0) % Eos # (Auto) (0-0.5) Absolute Lymphs (auto) (1.0-4.6) Absolute Monos (auto) (0.0-1.3) Lymphocytes % (24.0-44.0) % Monocytes % (0.0-12.0) % Eosinophils % (0.00-5.0) % Basophils % (0.0-0.4) % Absolute Granulocytes (1.4-6.9) Basophils # (0-0.4) pO2/FiO2 Ratio % VBG pH (7.32-7.42) VBG pCO2 at Pat Temp (42-55) mm/Hg VBG pO2 at Pat Temp (25-40) mm/Hg VBG HCO3 (22-28) meq/L VBG O2 Sat ([place]) (95-100) VBG Base Excess (-2.0-2.0) VBG Hemoglobin VBG Carboxyhemoglobin (0.0-6.9) % T HGB POC Potassium (3.5-5.1) Glucose 417 H (70-110) Sodium 138 (137-145) mmol/L Potassium 4.0 (3.5-5.1) mmol/L Chloride 101 (98-107) mmol/L Carbon Dioxide 28 (22-30) mmol/L Anion Gap 13.4 (5-15) MEQ/L BUN 14 (7-17) mg/dL Creatinine 0.67 (0.52-1.04) mg/dL Estimated GFR > 60.0 ML/MIN Calcium 8.9 (8.4-10.2) mg/dL Total Bilirubin (0.2-1.3) mg/dL AST (14-36) U/L ALT (0-35) U/L Alkaline Phosphatase (38-126) U/L Serum Total Protein (6.3-8.2) g/dL Albumin (3.5-5.0) g/dL Beta HCG, Quant mIU/ml Serum , Qual (Negative) Ur Collection Type CLEAN CATCH Urine Color LT.YELLOW (YELLOW) Urine Appearance CLEAR (CLEAR) Urine pH 5.0 (5-6) Ur Specific [place] <=1.005 (1.005-1.025) Urine Protein NEGATIVE (Negative) Urine Ketones SMALL (NEGATIVE) Urine Blood NEGATIVE (0-5) Zain/ul Urine Nitrite NEGATIVE (NEGATIVE) Urine Bilirubin NEGATIVE (NEGATIVE) Urine Urobilinogen NORMAL (0-1) mg/dL Ur Leukocyte Esterase NEGATIVE (NEGATIVE) Urine Bacteria FEW (NEGATIVE) /HPF Urine Culture Reflexed NO (NO) Urine Glucose 1000 (NEGATIVE) mg/dL Specimen Received 02/18/18 1720 Accuchecks Date 02/18/18 Date 02/18/18 Date 02/18/18 Time 22:43 Time 21:30 Time 20:30 Accucheck Value: 376 Accucheck Value: 345 Accucheck Value: 423 Accucheck Value: 536 - Radiology Impressions Radiology Exams & Impressions: Radiology Procedures Category Date Time Status OBSTR/ACUTE ABDOMEN SERIES Stat Exams 02/18/18 18:22 Taken Assessment/Plan (1) C. difficile colitis Current Visit: Yes Status: Acute Assessment & Plan: will start pt on IV flagyl; however she was on flagly recently so will also add po vancomycin. (2) Hyponatremia Current Visit: Yes Status: Acute Assessment & Plan: recheck in a.m. Code(s): E87.1 - HYPO-OSMOLALITY AND HYPONATREMIA (3) Abdominal pain Current Visit: Yes Status: Acute Onset Date: ~02/10/18 Qualifiers: Abdominal location: unspecified location Qualified Code(s): R10.9 - Unspecified abdominal pain Assessment & Plan: lower abd; likely exacerbated due to c. diff colitis, however was having some chronic abd pain prior to that so will plan for now f/u with Dr. Soria regarding colonoscopy, etc outpatient. Code(s): R10.9 - UNSPECIFIED ABDOMINAL PAIN (4) Hyperglycemia Current Visit: Yes Status: Acute Assessment & Plan: non ketotic hyperglycemia. Has not had mental status changes. Agree with no insulin pump for now. When her BS stablizes, will go back to home regimen of insulin injections. Code(s): R73.9 - HYPERGLYCEMIA, UNSPECIFIED (5) Type 1 diabetes mellitus Current Visit: No Status: Chronic Qualifiers: Diabetes mellitus complication status: with hyperglycemia Qualified Code(s) : E10.65 - Type 1 diabetes mellitus with hyperglycemia
[2018-02-18] MEDS ORDERED: PROVENTIL 2.5 MG/3 ML NEB IH PRN (23:50)
[2018-02-19] MEDS: FLAGYL 500 MG IVPB 500 MG/100 ML BAG IV SCH ×5 (00:12→23:49)
[2018-02-19] MEDS: VANCOMYCIN HCL PO SCH ×5 (00:13→22:08)
[2018-02-19] MEDS: Phenergan 25 MG INJ IV PRN ×5 (00:27→22:09)
[2018-02-19] MEDS: Ambien 10 MG PO SCH ×2 (01:09→22:08)
[2018-02-19] MEDS: Ranexa 500 MG PO SCH ×3 (01:09→22:08)
[2018-02-19] MEDS: Imdur 30 MG PO SCH ×2 (01:09→22:08)
[2018-02-19] MEDS: PLAVIX 75 MG Tablet PO SCH ×2 (01:09→22:09)
[2018-02-19] MEDS: LYRICA 100MG PO SCH ×3 (01:09→22:08)
[2018-02-19] MEDS: PRISTIQ ER PO SCH ×2 (01:10→22:09)
[2018-02-19 02:36] LABS: ANION GAP 14.2 MEQ/L (5-15); BLOOD UREA NITROGEN 13 mg/dL (7-17); CHLORIDE 103 mmol/L (98-107); Calcium 8.8 mg/dL (8.4-10.2); Carbon Dioxide 26 mmol/L (22-30); Creatinine 1 0.67 mg/dL (0.52-1.04); Glucose 298 mg/dL (74-106); Potassium 3.7 mmol/L (3.5-5.1); SODIUM 140 mmol/L (137-145)
[2018-02-19] MEDS: MORPHINE SULFATE 4 MG INJ IV PRN ×5 (04:05→22:09)
[2018-02-19] MEDS ORDERED: NovoLIN R ONE (04:25)
[2018-02-19] MEDS ORDERED: Sodium Chloride 0.9% 100 ML IVPB 100 ML IV ONE (04:25)
[2018-02-19] MEDS: Sodium Chloride 0.9% 1000 ML 1,000 ML IV SCH ×2 (05:45→16:41)
[2018-02-19] MEDS ORDERED: Lantus Insulin SQ ONE (05:45)
[2018-02-19 06:08] LABS: BASOPHIL % 0.4 % (0.0-0.4); Basophil (Absolute #) 0.03 (0-0.4); Eosinophil % 5.7 % (0.00-5.0); Granulocytes % 54.4 % (36.0-66.0); Hematocrit 34.4 % (35-47); Hemoglobin 11.5 gm/dl (12.0-16.0); Lymphocyte (Absolute #) 2.18 (1.0-4.6); Lymphocytes % 31.1 % (24.0-44.0); Mean Cell Volume 81.1 fl (78-100); Mean Corpuscular Hemoglobin 27.1 pg (26-32); Mean Corpuscular Hgb Concent. 33.4 g/dl (32-36); Mean Platelet Volume 10.9 fl (6-9.5); Monocyte (Absolute #) 0.59 (0.0-1.3); Monocytes % 8.4 % (0.0-12.0); Platelet Count 258 K/mm3 (150-450); Red Blood Count 4.24 M/mm3 (4.1-5.4); Red Cell Distribution Width 15.4 % (11.5-14.0)
[2018-02-19 06:13] LABS: ALBUMIN 3.4 g/dL (3.5-5.0); ALKALINE PHOSPHATASE 180 U/L (38-126); ANION GAP 12.8 MEQ/L (5-15); BLOOD UREA NITROGEN 13 mg/dL (7-17); CHLORIDE 108 mmol/L (98-107); Calcium 8.8 mg/dL (8.4-10.2); Carbon Dioxide 23 mmol/L (22-30); Creatinine 1 0.58 mg/dL (0.52-1.04); Glucose 154 mg/dL (74-106); Potassium 3.5 mmol/L (3.5-5.1); SGOT/AST 17 U/L (14-36); SGPT/ALT 25 U/L (0-35); SODIUM 141 mmol/L (137-145); Total Protein 6.3 g/dL (6.3-8.2)
[2018-02-19] MEDS: NovoLOG Insulin SQ PRN ×6 (08:43→22:10)
[2018-02-19] MEDS ORDERED: NON-FORMULARY ITEM (Sumatriptan Succinate [Imitrex] 100 MG) PO PRN (09:06)
[2018-02-19] MEDS ORDERED: MEDICATION INTERVENTION MC SCH (09:15)
[2018-02-19] MEDS ORDERED: NON-FORMULARY ITEM (Bupropion Hcl [Wellbutrin] 150 mg) PO SCH (10:00)
[2018-02-19] MEDS: Wellbutrin SR 150 MG PO SCH ×2 (10:38→22:08)
[2018-02-19] MEDS: Nystatin SUSPENSION 60 ML PO SCH ×4 (10:44→22:08)
--- NOTE | 2018-02-19 12:20 | PCM.NOTE ---
Date and Time: 02/19/18 1216 Subjective Assessment: Pt has not been having any stools. Pain is better with morphine and phenergan. has been tolerating po. BS have come down to the 200s-300s. She received 20 units of lantus this morning. - Review of Systems Constitutional: No Fever Abdominal/Gastrointestinal: Abdominal Pain, No Diarrhea Objective Exam General Appearance: no apparent distress, obese Neurologic Exam: alert, oriented x 3, cooperative Skin Exam: normal color, warm, dry, No rash Eye Exam: eyes nml inspection Ears, Nose, Throat Exam: moist mucous membranes Neck Exam: normal inspection Respiratory Exam: normal breath sounds, lungs clear, No crackles/rales, No rhonchi, No wheezing Cardiovascular Exam: regular rate/rhythm, normal heart sounds, No murmur Gastrointestinal/Abdomen Exam: soft, tenderness (suprapubic; mild), No normal bowel sounds (hypoactive), No distention, No mass, No guarding, No rebound Extremity Exam: normal inspection, No pedal edema, No swelling Back Exam: normal inspection, No rash OBJECTIVE DATA Vital Signs: Vital Signs - 24 hr Temp Pulse Resp BP Pulse Ox 02/19/18 08:00 97.1 F 88 16 111/80 99 02/19/18 04:00 98.6 F 80 16 100/57 95 02/19/18 00:01 93 H 02/19/18 00:00 93 H 15 137/73 95 02/18/18 23:40 95 H 16 97 02/18/18 20:43 98.4 F 92 H 18 117/74 99 02/18/18 19:50 87 98 02/18/18 19:18 98 02/18/18 19:08 84 17 114/81 98 02/18/18 18:31 82 14 105/68 99 02/18/18 17:18 85 16 110/62 98 02/18/18 16:34 98.2 F 97 H 16 140/76 97 Pain Assessment - Last Documented Pain Intensity 5 Pain Scale Used 0-10 Pain Scale Intake and Output: Intake & Output 02/17/18 02/18/18 02/19/18 02/20/18 11:59 11:59 11:59 11:59 Intake Total 3789 Balance 3789 Weight 85.2 kg Lab Results: Accuchecks Date 07/03/0202/19/1802/19/1802/19/1802/19/1802/19/1802/19/1802/19/1802/19/1802/19/1802/19/18 Date 02/18/18 Date 02/18/18 Date 02/18/18 Time 12:04 Time 10:40 Time 09:37 Time 08:05 Time 07:25 Time 06:29 Time 05:15 Time 04:00 Time 02:15 Time 01:41 Time 00:41 Time 22:43 Time 21:30 Time 20:30 Accucheck Value: 197 Accucheck Value: 288 Accucheck Value: 261 Accucheck Value: 223 Accucheck Value: 195 Accucheck Value: 195 Accucheck Value: 135 Accucheck Value: 194 Accucheck Value: 347 Accucheck Value: 348 Accucheck Value: 376 Accucheck Value: 345 Accucheck Value: 423 Accucheck Value: 536 Lab Results-Last 24 Hours 02/18/18 02/18/18 02/18/18 Range/Units 15:00 16:57 16:57 WBC (4.0-10.5) K/mm3 RBC (4.1-5.4) M/mm3 Hgb (12.0-16.0) gm/dl Hct (35-47) % MCV (78-100) fl MCH (26-32) pg MCHC (32-36) g/dl RDW (11.5-14.0) % Plt Count (150-450) K/mm3 MPV (6-9.5) fl Gran % (36.0-66.0) % Eos # (Auto) (0-0.5) Absolute Lymphs (auto) (1.0-4.6) Absolute Monos (auto) (0.0-1.3) Lymphocytes % (24.0-44.0) % Monocytes % (0.0-12.0) % Eosinophils % (0.00-5.0) % Basophils % (0.0-0.4) % Absolute Granulocytes (1.4-6.9) Basophils # (0-0.4) pO2/FiO2 Ratio 21.0 % VBG pH 7.40 (7.32-7.42) VBG pCO2 at Pat Temp 36 L (42-55) mm/Hg VBG pO2 at Pat Temp 36 (25-40) mm/Hg VBG HCO3 22.3 (22-28) meq/L VBG O2 Sat ([place]) 76.8 L (95-100) VBG Base Excess -2.1 L (-2.0-2.0) VBG Hemoglobin 11.8 VBG Carboxyhemoglobin 2.5 (0.0-6.9) % T HGB POC Potassium 4.2 (3.5-5.1) Glucose > 750 H* (70-110) Sodium (137-145) mmol/L Potassium (3.5-5.1) mmol/L Chloride (98-107) mmol/L Carbon Dioxide (22-30) mmol/L Anion Gap (5-15) MEQ/L BUN (7-17) mg/dL Creatinine (0.52-1.04) mg/dL Estimated GFR ML/MIN Calcium (8.4-10.2) mg/dL Total Bilirubin (0.2-1.3) mg/dL AST (14-36) U/L ALT (0-35) U/L Alkaline Phosphatase (38-126) U/L Serum Total Protein (6.3-8.2) g/dL Albumin (3.5-5.0) g/dL Beta HCG, Quant 3.48 mIU/ml Serum , Qual (Negative) Ur Collection Type Urine Color (YELLOW) Urine Appearance (CLEAR) Urine pH (5-6) Ur Specific [place] (1.005-1.025) Urine Protein (Negative) Urine Ketones (NEGATIVE) Urine Blood (0-5) Zain/ul Urine Nitrite (NEGATIVE) Urine Bilirubin (NEGATIVE) Urine Urobilinogen (0-1) mg/dL Ur Leukocyte Esterase (NEGATIVE) Urine Bacteria (NEGATIVE) /HPF Urine Culture Reflexed (NO) Urine Glucose (NEGATIVE) mg/dL Specimen Received 02/18/18 02/18/18 02/18/18 Range/Units 17:00 17:00 17:00 WBC 8.7 (4.0-10.5) K/mm3 RBC 4.23 (4.1-5.4) M/mm3 Hgb 11.5 L (12.0-16.0) gm/dl Hct 34.1 L (35-47) % MCV 80.6 (78-100) fl MCH 27.1 (26-32) pg MCHC 33.7 (32-36) g/dl RDW 15.3 H (11.5-14.0) % Plt Count 220 (150-450) K/mm3 MPV 11.3 H (6-9.5) fl Gran % 74.7 H (36.0-66.0) % Eos # (Auto) 0.17 (0-0.5) Absolute Lymphs (auto) 1.47 (1.0-4.6) Absolute Monos (auto) 0.55 (0.0-1.3) Lymphocytes % 16.8 L (24.0-44.0) % Monocytes % 6.3 (0.0-12.0) % Eosinophils % 1.9 (0.00-5.0) % Basophils % 0.3 (0.0-0.4) % Absolute Granulocytes 6.52 (1.4-6.9) Basophils # 0.03 (0-0.4) pO2/FiO2 Ratio % VBG pH (7.32-7.42) VBG pCO2 at Pat Temp (42-55) mm/Hg VBG pO2 at Pat Temp (25-40) mm/Hg VBG HCO3 (22-28) meq/L VBG O2 Sat ([place]) (95-100) VBG Base Excess (-2.0-2.0) VBG Hemoglobin VBG Carboxyhemoglobin (0.0-6.9) % T HGB POC Potassium (3.5-5.1) Glucose 816 H* (70-110) Sodium 128 L (137-145) mmol/L Potassium 4.3 (3.5-5.1) mmol/L Chloride 92 L (98-107) mmol/L Carbon Dioxide 20 L (22-30) mmol/L Anion Gap 20.9 H (5-15) MEQ/L BUN 17 (7-17) mg/dL Creatinine 0.67 (0.52-1.04) mg/dL Estimated GFR > 60.0 ML/MIN Calcium 9.1 (8.4-10.2) mg/dL Total Bilirubin 1.00 (0.2-1.3) mg/dL AST 29 (14-36) U/L ALT 32 (0-35) U/L Alkaline Phosphatase 227 H (38-126) U/L Serum Total Protein 7.0 (6.3-8.2) g/dL Albumin 4.2 (3.5-5.0) g/dL Beta HCG, Quant mIU/ml Serum , Qual POSITIVE (Negative) Ur Collection Type Urine Color (YELLOW) Urine Appearance (CLEAR) Urine pH (5-6) Ur Specific [place] (1.005-1.025) Urine Protein (Negative) Urine Ketones (NEGATIVE) Urine Blood (0-5) Zain/ul Urine Nitrite (NEGATIVE) Urine Bilirubin (NEGATIVE) Urine Urobilinogen (0-1) mg/dL Ur Leukocyte Esterase (NEGATIVE) Urine Bacteria (NEGATIVE) /HPF Urine Culture Reflexed (NO) Urine Glucose (NEGATIVE) mg/dL Specimen Received 02/18/18 02/18/18 02/19/18 Range/Units 17:00 23:00 02:15 WBC (4.0-10.5) K/mm3 RBC (4.1-5.4) M/mm3 Hgb (12.0-16.0) gm/dl Hct (35-47) % MCV (78-100) fl MCH (26-32) pg MCHC (32-36) g/dl RDW (11.5-14.0) % Plt Count (150-450) K/mm3 MPV (6-9.5) fl Gran % (36.0-66.0) % Eos # (Auto) (0-0.5) Absolute Lymphs (auto) (1.0-4.6) Absolute Monos (auto) (0.0-1.3) Lymphocytes % (24.0-44.0) % Monocytes % (0.0-12.0) % Eosinophils % (0.00-5.0) % Basophils % (0.0-0.4) % Absolute Granulocytes (1.4-6.9) Basophils # (0-0.4) pO2/FiO2 Ratio % VBG pH (7.32-7.42) VBG pCO2 at Pat Temp (42-55) mm/Hg VBG pO2 at Pat Temp (25-40) mm/Hg VBG HCO3 (22-28) meq/L VBG O2 Sat ([place]) (95-100) VBG Base Excess (-2.0-2.0) VBG Hemoglobin VBG Carboxyhemoglobin (0.0-6.9) % T HGB POC Potassium (3.5-5.1) Glucose 417 H 298 H (70-110) Sodium 138 140 (137-145) mmol/L Potassium 4.0 3.7 (3.5-5.1) mmol/L Chloride 101 103 (98-107) mmol/L Carbon Dioxide 28 26 (22-30) mmol/L Anion Gap 13.4 14.2 (5-15) MEQ/L BUN 14 13 (7-17) mg/dL Creatinine 0.67 0.67 (0.52-1.04) mg/dL Estimated GFR > 60.0 > 60.0 ML/MIN Calcium 8.9 8.8 (8.4-10.2) mg/dL Total Bilirubin (0.2-1.3) mg/dL AST (14-36) U/L ALT (0-35) U/L Alkaline Phosphatase (38-126) U/L Serum Total Protein (6.3-8.2) g/dL Albumin (3.5-5.0) g/dL Beta HCG, Quant mIU/ml Serum , Qual (Negative) Ur Collection Type CLEAN CATCH Urine Color LT.YELLOW (YELLOW) Urine Appearance CLEAR (CLEAR) Urine pH 5.0 (5-6) Ur Specific [place] <=1.005 (1.005-1.025) Urine Protein NEGATIVE (Negative) Urine Ketones SMALL (NEGATIVE) Urine Blood NEGATIVE (0-5) Zain/ul Urine Nitrite NEGATIVE (NEGATIVE) Urine Bilirubin NEGATIVE (NEGATIVE) Urine Urobilinogen NORMAL (0-1) mg/dL Ur Leukocyte Esterase NEGATIVE (NEGATIVE) Urine Bacteria FEW (NEGATIVE) /HPF Urine Culture Reflexed NO (NO) Urine Glucose 1000 (NEGATIVE) mg/dL Specimen Received 02/18/18 1720 02/19/18 02/19/18 Range/Units 05:40 05:40 WBC 7.0 (4.0-10.5) K/mm3 RBC 4.24 (4.1-5.4) M/mm3 Hgb 11.5 L (12.0-16.0) gm/dl Hct 34.4 L (35-47) % MCV 81.1 (78-100) fl MCH 27.1 (26-32) pg MCHC 33.4 (32-36) g/dl RDW 15.4 H (11.5-14.0) % Plt Count 258 (150-450) K/mm3 MPV 10.9 H (6-9.5) fl Gran % 54.4 (36.0-66.0) % Eos # (Auto) 0.40 (0-0.5) Absolute Lymphs (auto) 2.18 (1.0-4.6) Absolute Monos (auto) 0.59 (0.0-1.3) Lymphocytes % 31.1 (24.0-44.0) % Monocytes % 8.4 (0.0-12.0) % Eosinophils % 5.7 H (0.00-5.0) % Basophils % 0.4 (0.0-0.4) % Absolute Granulocytes 3.80 (1.4-6.9) Basophils # 0.03 (0-0.4) pO2/FiO2 Ratio % VBG pH (7.32-7.42) VBG pCO2 at Pat Temp (42-55) mm/Hg VBG pO2 at Pat Temp (25-40) mm/Hg VBG HCO3 (22-28) meq/L VBG O2 Sat ([place]) (95-100) VBG Base Excess (-2.0-2.0) VBG Hemoglobin VBG Carboxyhemoglobin (0.0-6.9) % T HGB POC Potassium (3.5-5.1) Glucose 154 H (70-110) Sodium 141 (137-145) mmol/L Potassium 3.5 (3.5-5.1) mmol/L Chloride 108 H (98-107) mmol/L Carbon Dioxide 23 (22-30) mmol/L Anion Gap 12.8 (5-15) MEQ/L BUN 13 (7-17) mg/dL Creatinine 0.58 (0.52-1.04) mg/dL Estimated GFR > 60.0 ML/MIN Calcium 8.8 (8.4-10.2) mg/dL Total Bilirubin 0.30 (0.2-1.3) mg/dL AST 17 (14-36) U/L ALT 25 (0-35) U/L Alkaline Phosphatase 180 H (38-126) U/L Serum Total Protein 6.3 (6.3-8.2) g/dL Albumin 3.4 L (3.5-5.0) g/dL Beta HCG, Quant mIU/ml Serum , Qual (Negative) Ur Collection Type Urine Color (YELLOW) Urine Appearance (CLEAR) Urine pH (5-6) Ur Specific [place] (1.005-1.025) Urine Protein (Negative) Urine Ketones (NEGATIVE) Urine Blood (0-5) Zain/ul Urine Nitrite (NEGATIVE) Urine Bilirubin (NEGATIVE) Urine Urobilinogen (0-1) mg/dL Ur Leukocyte Esterase (NEGATIVE) Urine Bacteria (NEGATIVE) /HPF Urine Culture Reflexed (NO) Urine Glucose (NEGATIVE) mg/dL Specimen Received Radiology Exams: Radiology Procedures Category Date Time Status OBSTR/ACUTE ABDOMEN SERIES Stat Exams 02/18/18 18:22 Completed Assessment/Plan (1) C. difficile colitis Current Visit: Yes Status: Acute Assessment & Plan: Improved on IV flagyl, po vancomycin (both day #2). Will transfer out to med surg today. If tolerating po well and continues to have no stools, may be able to d/c home on po vancomycin tomorrow. (2) Abdominal pain Current Visit: Yes Status: Acute Onset Date: ~02/10/18 Qualifiers: Abdominal location: unspecified location Qualified Code(s): R10.9 - Unspecified abdominal pain Assessment & Plan: Better; her exam is much improved today. Code(s): R10.9 - UNSPECIFIED ABDOMINAL PAIN (3) Hyponatremia Current Visit: Yes Status: Resolved Assessment & Plan: now normal Code(s): E87.1 - HYPO-OSMOLALITY AND HYPONATREMIA (4) Hyperglycemia Current Visit: Yes Status: Acute Assessment & Plan: Improved; her home lantus regimen was 80 units at night, with humalog or novolog 10-14 units with meals. Will give 40 units lantus tonight (received 20 units this morning) and give 10 units R with meals. Her BS may be lower here as she is on 1800 nathaly diet, so will change her to regular diet to more accurately reflect what her home BS will be. Code(s): R73.9 - HYPERGLYCEMIA, UNSPECIFIED (5) Type 1 diabetes mellitus Current Visit: No Status: Chronic Qualifiers: Diabetes mellitus complication status: with hyperglycemia Qualified Code(s) : E10.65 - Type 1 diabetes mellitus with hyperglycemia
[2018-02-19] MEDS: NovoLOG Insulin SQ SCH (16:41)
[2018-02-19] MEDS ORDERED: PRISTIQ ER PO SCH (22:00)
[2018-02-19] MEDS ORDERED: Lantus Insulin SQ SCH (22:00)
[2018-02-20] MEDS: MORPHINE SULFATE 4 MG INJ IV PRN ×5 (03:10→22:05)
[2018-02-20] MEDS: Phenergan 25 MG INJ IV PRN ×5 (03:11→22:04)
[2018-02-20] MEDS: Sodium Chloride 0.9% 1000 ML 1,000 ML IV SCH ×3 (04:24→17:35)
[2018-02-20] MEDS: FLAGYL 500 MG IVPB 500 MG/100 ML BAG IV SCH ×4 (05:30→23:16)
[2018-02-20 05:59] LABS: ANION GAP 13.6 MEQ/L (5-15); BLOOD UREA NITROGEN 13 mg/dL (7-17); CHLORIDE 105 mmol/L (98-107); Calcium 8.6 mg/dL (8.4-10.2); Carbon Dioxide 23 mmol/L (22-30); Creatinine 1 0.65 mg/dL (0.52-1.04); Glucose 418 mg/dL (74-106); SODIUM 137 mmol/L (137-145)
[2018-02-20] MEDS: NovoLOG Insulin SQ PRN ×4 (06:38→21:10)
[2018-02-20] MEDS: NovoLOG Insulin SQ SCH ×3 (07:43→16:40)
[2018-02-20] MEDS: VANCOMYCIN HCL PO SCH ×4 (10:08→21:09)
[2018-02-20] MEDS: Wellbutrin SR 150 MG PO SCH ×2 (10:08→21:09)
[2018-02-20] MEDS: LYRICA 100MG PO SCH ×2 (10:08→21:09)
[2018-02-20] MEDS: Ranexa 500 MG PO SCH ×2 (10:08→21:08)
[2018-02-20] MEDS: Nystatin SUSPENSION 60 ML PO SCH ×4 (10:10→21:10)
[2018-02-20] MEDS: Lantus Insulin SQ SCH ×2 (10:23→21:09)
--- NOTE | 2018-02-20 10:31 | PCM.NOTE ---
Date and Time: 02/20/18 1023 Subjective Assessment: She is still having abd pain, has still been taking morphine and phenergan. She is tolerating po well. Her BS were 197-418 in the past 24 hours, and she received 49 units of regular insulin on the sliding scale. No diarrhea since her one stool on admission. - Review of Systems Constitutional: No Fever Abdominal/Gastrointestinal: Abdominal Pain, No Vomiting, No Diarrhea Objective Exam General Appearance: no apparent distress, alert, obese Neurologic Exam: oriented x 3, cooperative Skin Exam: normal color, warm, dry, No rash Respiratory Exam: normal breath sounds, lungs clear, No crackles/rales, No rhonchi, No wheezing Cardiovascular Exam: regular rate/rhythm, normal heart sounds, No murmur Gastrointestinal/Abdomen Exam: soft, normal bowel sounds, tenderness ( generalized), No distention, No mass, No guarding, No rebound Extremity Exam: normal inspection, No pedal edema, No swelling OBJECTIVE DATA Vital Signs: Vital Signs - 24 hr Temp Pulse Resp BP Pulse Ox 02/20/18 06:47 97.5 F 78 18 102/58 98 02/20/18 04:00 97.8 F 92 H 16 110/64 98 02/20/18 00:11 98.2 F 84 16 126/71 99 02/19/18 20:05 98.4 F 84 15 125/74 98 02/19/18 20:00 84 02/19/18 19:25 88 16 99 02/19/18 16:26 98.1 F 85 20 119/64 98 02/19/18 16:00 85 02/19/18 12:00 97.7 F 86 16 106/63 97 Pain Assessment - Last Documented Pain Intensity 6 Pain Scale Used 0-10 Pain Scale Intake and Output: Intake & Output 02/17/18 02/18/18 02/19/18 02/20/18 11:59 11:59 11:59 11:59 Intake Total 9519 2685 Balance 3780 2685 Weight 85.2 kg Lab Results: Accuchecks Date 02/20/18 Date 02/19/18 Date 02/19/18 Date 02/19/18 Date 02/19/18 Time 05:00 Time 21:30 Time 16:30 Time 12:04 Time 10:40 Accucheck Value: 323 Accucheck Value: 294 Accucheck Value: 197 Accucheck Value: 288 Lab Results-Last 24 Hours 02/20/18 Range/Units 05:30 Sodium 137 (137-145) mmol/L Potassium 4.0 (3.5-5.1) mmol/L Chloride 105 (98-107) mmol/L Carbon Dioxide 23 (22-30) mmol/L Anion Gap 13.6 (5-15) MEQ/L BUN 13 (7-17) mg/dL Creatinine 0.65 (0.52-1.04) mg/dL Estimated GFR > 60.0 ML/MIN Glucose 418 H (74-106) mg/dL Calcium 8.6 (8.4-10.2) mg/dL Radiology Exams: Radiology Procedures Category Date Time Status OBSTR/ACUTE ABDOMEN SERIES Stat Exams 02/18/18 18:22 Completed Assessment/Plan (1) C. difficile colitis Current Visit: Yes Status: Acute Assessment & Plan: Improved, no stools since one at admission. On flagyl IV and po vancomycin. (2) Abdominal pain Current Visit: Yes Status: Acute Onset Date: ~02/10/18 Qualifiers: Abdominal location: unspecified location Qualified Code(s): R10.9 - Unspecified abdominal pain Assessment & Plan: Acute on chronic. Will need to continue her OP f/u wiht a colonoscopy. Code(s): R10.9 - UNSPECIFIED ABDOMINAL PAIN (3) Hyperglycemia Current Visit: Yes Status: Acute Assessment & Plan: Improved, but currently changing from insulin pump to Lantus. Increased lantus today from 20 units in a.m. and 40 units in p.m. to 40 units BID. Code(s): R73.9 - HYPERGLYCEMIA, UNSPECIFIED (4) Type 1 diabetes mellitus Current Visit: No Status: Chronic Qualifiers: Diabetes mellitus complication status: with hyperglycemia Qualified Code(s) : E10.65 - Type 1 diabetes mellitus with hyperglycemia
[2018-02-20] MEDS: PLAVIX 75 MG Tablet PO SCH (21:08)
[2018-02-20] MEDS: PRISTIQ ER PO SCH (21:09)
[2018-02-20] MEDS: Imdur 30 MG PO SCH (21:09)
[2018-02-20] MEDS: NOVOLIN R INSULIN (FOR DRIPS)** 100 UNITS in Sodium Chloride 0.9% 100 ML IVPB 100 ML IV SCH (21:35)
[2018-02-20] MEDS: Ambien 10 MG PO SCH (22:01)
[2018-02-20] MEDS: OXYCODONE-ACETAMINOPHEN 10-325 PO PRN (23:16)
[2018-02-21] MEDS: MORPHINE SULFATE 4 MG INJ IV PRN (03:35)
[2018-02-21] MEDS: Phenergan 25 MG INJ IV PRN (03:35)
[2018-02-21] MEDS: Sodium Chloride 0.9% 1000 ML 1,000 ML IV SCH (03:44)
[2018-02-21] MEDS: FLAGYL 500 MG IVPB 500 MG/100 ML BAG IV SCH (05:27)
[2018-02-21 06:41] LABS: ANION GAP 12.8 MEQ/L (5-15); BLOOD UREA NITROGEN 11 mg/dL (7-17); CHLORIDE 105 mmol/L (98-107); Calcium 8.4 mg/dL (8.4-10.2); Carbon Dioxide 24 mmol/L (22-30); Creatinine 1 0.64 mg/dL (0.52-1.04); Glucose 339 mg/dL (74-106); Potassium 3.9 mmol/L (3.5-5.1); SODIUM 138 mmol/L (137-145)
[2018-02-21 07:14] VITALS: BP 134/79; PULSE 78
[2018-02-21] MEDS: LYRICA 100MG PO SCH (07:34)
[2018-02-21] MEDS: VANCOMYCIN HCL PO SCH (07:35)
[2018-02-21] MEDS: Wellbutrin SR 150 MG PO SCH (07:35)
[2018-02-21] MEDS: Ranexa 500 MG PO SCH (07:35)
[2018-02-21] MEDS: NovoLOG Insulin SQ SCH (07:36)
[2018-02-21] MEDS: Lantus Insulin SQ SCH (07:36)
[2018-02-21] MEDS: Nystatin SUSPENSION 60 ML PO SCH (07:36)
[2018-02-21] MEDS: NovoLOG Insulin SQ PRN (07:37)
[2018-02-21] MEDS: OXYCODONE-ACETAMINOPHEN 10-325 PO PRN (07:39)
[2018-02-21] MEDS ORDERED: NovoLOG Insulin SQ SCH (07:57)
--- NOTE | 2018-02-21 08:42 | PCM.NOTE ---
Date and Time: 02/21/18 0839 Subjective Assessment: patient c/o abd pain, has been eating a regular diet and having no problems tolerating it. sugars have been high, fasting sugar was over 300 this morning. patient angry and cursing at nursing during my entrance to the room Objective Exam General Appearance: obese Neurologic Exam: alert Skin Exam: normal color, warm, dry Respiratory Exam: normal breath sounds, lungs clear, No respiratory distress Cardiovascular Exam: regular rate/rhythm, normal heart sounds Gastrointestinal/Abdomen Exam: soft, normal bowel sounds, No tenderness, No distention Extremity Exam: normal inspection, normal range of motion OBJECTIVE DATA Vital Signs: Vital Signs - 24 hr Temp Pulse Resp BP Pulse Ox 02/21/18 07:24 9 L 02/21/18 07:13 97.8 F 78 16 134/79 99 02/21/18 04:01 97.7 F 95 H 18 117/67 96 02/20/18 23:55 98.3 F 91 H 16 117/68 99 02/20/18 19:55 98.8 F 98 H 16 133/79 98 02/20/18 19:54 88 16 98 02/20/18 15:59 98 F 86 20 113/59 97 02/20/18 11:17 98.1 F 89 20 108/64 97 Pain Assessment - Last Documented Pain Intensity 5 Pain Scale Used 0-10 Pain Scale Intake and Output: Intake & Output 02/18/18 02/19/18 02/20/18 02/21/18 11:59 11:59 11:59 11:59 Intake Total 3789 2685 2746 Output Total 3600 Balance 3789 2685 -854 Weight 85.2 kg 85.2 kg Lab Results: Accuchecks Date 02/21/18 Date 02/20/18 Date 02/20/18 Date 02/20/18 Time 07:30 Time 16:30 Time 11:30 Accucheck Value: 356 Accucheck Value: 268 Accucheck Value: 307 Accucheck Value: 336 Lab Results-Last 24 Hours 02/20/18 02/21/18 Range/Units 23:45 05:25 Sodium 138 (137-145) mmol/L Potassium 3.9 (3.5-5.1) mmol/L Chloride 105 (98-107) mmol/L Carbon Dioxide 24 (22-30) mmol/L Anion Gap 12.8 (5-15) MEQ/L BUN 11 (7-17) mg/dL Creatinine 0.64 (0.52-1.04) mg/dL Estimated GFR > 60.0 ML/MIN Glucose 339 H (74-106) mg/dL Calcium 8.4 (8.4-10.2) mg/dL Troponin I < 0.012 (0.000-0.034) ng/mL Radiology Exams: Radiology Procedures Category Date Time Status CHEST 1 VIEW (PORTABLE) Stat Exams 02/21/18 00:02 Taken Assessment/Plan (1) C. difficile colitis Current Visit: Yes Status: Acute Assessment & Plan: on Vanc and Flagyl, tolerating po and diarrhea is improved (2) Abdominal pain Current Visit: Yes Status: Acute Onset Date: ~02/10/18 Qualifiers: Abdominal location: unspecified location Qualified Code(s): R10.9 - Unspecified abdominal pain Code(s): R10.9 - UNSPECIFIED ABDOMINAL PAIN (3) Hyperglycemia due to type 1 diabetes mellitus Current Visit: No Status: Acute Assessment & Plan: increase basal insulin and scheduled mealtime insulin Code(s): E10.65 - TYPE 1 DIABETES MELLITUS WITH HYPERGLYCEMIA
[2018-02-21 09:16] VITALS: O2SAT 96
[2018-02-21] MEDS ORDERED: Lantus Insulin SQ SCH (10:00)
--- NOTE | 2018-02-21 15:59 | XRAY ---
Exam: AP portable chest film from 02/21/2018. Comparison: PA chest film from 02/18/2018. Indication: Patient fell sternotomy wires "pop". Findings: The transverse heart size is normal. Numerous surgical clips and midline sternal wires are seen consistent with prior CABG. I do not appreciate a definite new fracture of the sternal wires. Incidentally, review of the CT of the chest from 02/03/2018 as well as the recent PA chest film from the acute obstructive series dated 02/18/2018 reveal the most superior sternal wire to be broken. However, this is not recent. Left-sided [id number] is seen with the tip pointing inferiorly within the SVC near the cavoatrial junction. The level of inspiration is towards the lower limits of normal. However, no air space infiltrates, vascular congestion, pneumothorax, or pleural fluid is seen. EKG leads are noted in place. No acute osseous process is seen. Impression: 1. No new broken sternal wires are seen. The most superior sternal wire is noted to be broken on both the recent frontal chest from 02/18/[address] of the chest with IV contrast from 02/03/2018. The patient is status post CABG. 2. Left-sided [id number] with tip pointing inferiorly near the caval-atrial junction in unchanged position. 3. No other acute cardiopulmonary disease is seen.
== END 2018-02-21 08:42 | disposition left against medical advice (07) | DRG 372 ==
LOC: ED 16:27 → ICU 20:09 → OBSVTOIN 02-19 12:16 → MED SURG 02-19 15:28
PROVIDERS: ADMIT Family Medicine; ATTEND Family Medicine
DX: A04.72 Enterocolitis due to Clostridium difficile, not specified as recurrent (principal); E87.1 Hypo-osmolality and hyponatremia; R10.9 Unspecified abdominal pain; E10.65 Type 1 diabetes mellitus with hyperglycemia; Z79.4 Long term (current) use of insulin; R10.84 Generalized abdominal pain; I50.9 Heart failure, unspecified; Z86.711 Personal history of pulmonary embolism; I25.2 Old myocardial infarction; D86.9 Sarcoidosis, unspecified; Z95.1 Presence of aortocoronary bypass graft; Z79.899 Other long term (current) drug therapy
CPT/HCPCS: 36000; 36415; 71045; 74022; 80048; 80053; 81000; 82150; 82805; 82947; 82962; 83690; 84484; 84702; 84703; 85025; 85652; 87507; 93005; 93268; 94640; 94760; 96360; 96361; 96374; 96375; 99285; J7609; J1815; J2270; J2550; A9270-GY; G0378

== ENCOUNTER 2018-09-29 09:54 | Day surgery (SDC) | payer MEDICARE ==
--- NOTE | 2018-09-27 14:06 | HP ---
DATE OF SURGERY: 09/29/2018 ADMISSION DIAGNOSIS: Excision cyst right neck. ANTICIPATED PROCEDURE: Excision. HISTORY OF PRESENT ILLNESS: Patient has a cyst right neck which has been enlarging. PAST MEDICAL HISTORY: ALLERGIES: DARVOCET, DEMEROL, PENICILLIN, BACTRIM. MEDICATIONS: Lyrica, oxycodone, atorvastatin, Imdur. PAST SURGICAL HISTORY: Hysterectomy. Double bypass. Lung biopsy. Lymph node biopsy. SOCIAL HISTORY: Negative. FAMILY HISTORY: Negative. REVIEW OF SYSTEMS: Pulmonary: Sarcoidosis. Congestive heart failure. Diabetes. PHYSICAL EXAMINATION: VITAL SIGNS: Normal. CHEST: Clear. COR: Regular. IMPRESSION: Enlarging cyst right neck. PLAN: Excision.
[~2018-09-29 09:54] MED LIST: XYLOCAINE 1% HCL 20 ML MDV ONE
[2018-09-29] MEDS ORDERED: SUBLIMAZE 100 MCG/2 ML IV ONE (09:55)
[2018-09-29] MEDS ORDERED: VERSED 5 MG/5 ML IV ONE (09:55)
[2018-09-29] MEDS ORDERED: Lactated Ringers 1,000 ML IV ONE (10:50)
[2018-09-29] MEDS ORDERED: Sodium Chloride 0.9% 1000 ML 1,000 ML IV SCH (11:00)
[2018-09-29] MEDS ORDERED: Phenergan 25 MG INJ IV ONE (11:25)
[2018-09-29] MEDS ORDERED: KEFZOL 1 GM ONE (12:40)
[2018-09-29] MEDS ORDERED: Sodium Chloride 0.9% 10 ML FLUSH Syringe PORT FLUSH PRN (14:16)
[2018-09-29 14:41] VITALS: O2SAT 98
[2018-09-29 14:43] VITALS: BP 110/70; PULSE 99
--- NOTE | 2018-09-30 08:24 | OP ---
SURGERY DATE/TIME: 09/29/2018 1223 PREOPERATIVE DIAGNOSIS: A 2 cm cyst of the neck inflamed. POSTOPERATIVE DIAGNOSIS: A 2 cm cyst of the neck inflamed. PROCEDURE: Excision and closure. SURGEON: Toby Smith M.D. ANESTHESIA: IV sedation 15 minutes. INDICATION: A patient with inflamed sebaceous cyst. DESCRIPTION OF PROCEDURE: Taken to surgery. Two doses of IV sedation were given. Oximetry kept over 90%. Satisfaction level was satisfactory. Routine prep and drape. Time out performed. Transverse elliptical excision. The cyst was totally excised. It had been markedly inflamed and focally ruptured. It was generously irrigated. It was closed over a drain. A vacuum drain was placed. It was closed with inverting 4-0 Vicryl and glue. Patient tolerated the procedure satisfactorily.
== END 2018-09-29 14:25 | disposition home or self-care (01) ==
LOC: SDC 09:54
PROVIDERS: ATTEND Surgery
DX: L72.0 Epidermal cyst (principal); L72.3 Sebaceous cyst; R20.8 Other disturbances of skin sensation; E11.9 Type 2 diabetes mellitus without complications; I50.9 Heart failure, unspecified; D86.9 Sarcoidosis, unspecified; I25.10 Atherosclerotic heart disease of native coronary artery without angina pectoris
CPT/HCPCS: 82962; J0690; J1642; J2250; J2550; J3010

== ENCOUNTER 2023-12-02 16:21 | Emergency (ER) | payer MEDICARE ==
[2023-12-02 16:39] VITALS: TEMP 97.2
--- NOTE | 2023-12-02 17:05 | XRAY ---
Indication: Chest pain. Comparison: February 21, 2018 Portable chest remains inflated and clear. Heart not enlarged again with CABG and left Port-A-Cath. Bony thorax intact again with osteopenia. Impression: Continued nonacute chest with chronic features.
[2023-12-02] MEDS ORDERED: BABY ASPIRIN 81 MG CHEW ONE (17:16)
[2023-12-02] MEDS: BABY ASPIRIN 81 MG CHEW PO ONE (17:17)
[2023-12-02 17:19] LABS: Absolute Neutrophil Ct (ANC) 3.53 x10^3/uL (1.4-6.9); BASOPHIL % 0.3 % (0.0-0.4); Basophil (Absolute #) 0.02 x10^3/uL (0-0.4); Eosinophil (Absolute #) 0 x10^3/uL (0-0.5); Hematocrit 31.5 % (35-47); Hemoglobin 10.2 g/dL (12.0-16.0); IMMATURE GRAN # 0.03 x10^3u/L (0.00-0.03); IMMATURE GRAN % 0.5 % (0.00-0.4); Lymphocytes % 29.5 % (24.0-44.0); Mean Cell Volume 87.3 fL (78-100); Mean Corpuscular Hemoglobin 28.3 pg (26-32); Mean Corpuscular Hgb Concent. 32.4 g/dL (32-36); Mean Platelet Volume 12.5 fL (7.5-11.0); Monocyte (Absolute #) 0.73 x10^3/uL (0.0-1.3); Monocytes % 11.9 % (0.0-12.0); Neutrophil % 57.8 % (36.0-66.0); Platelet Count 107 x10^3/uL (150-450); Red Blood Count 3.61 x10^6/uL (4.1-5.4); White Blood Count 6.1 x10^3/uL (4.0-10.5)
[2023-12-02 17:41] LABS: ALBUMIN 3.8 g/dL (3.5-5.0); ANION GAP 13.6 MEQ/L (5-15); Creatinine 1 1.44 mg/dL (0.52-1.04); EST GLOMERULAR FILTRATION RATE 47.2 ML/MIN; MAGNESIUM 1.9 mg/dL (1.6-2.3); Potassium 4.3 mmol/L (3.5-5.1); Total Protein 6.7 g/dL (6.3-8.2)
--- NOTE | 2023-12-02 17:50 | ERPHSYRPT ---
- History of Present Illness Source: patient Exam Limitations: no limitations Patient Subjective Stated Complaint: pt here for chest sob this morning with some chest pain to center of chest today, she states she also noticed her hr was lower today. pt has long medical history. she states pain eases with rest, no cough or fever Triage Nursing Assessment: pt alert, walked in, resp easy, no cough, chest clear, has edema to lower legs, pt states is worse for her, moves all ext well. she co pain to right ankle after falling yesterday, and states it hurts to bear wt, abd soft. Hx Tetanus, Diphtheria Vaccination/Date Given: Yes Hx Influenza Vaccination/Date Given: No Hx Pneumococcal Vaccination/Date Given: No Immunizations Up to Date: Yes - History of Present Illness Time Seen by Provider: 12/02/23 16:44 Physician History: 38 years old female with complicated medical history including coronary artery disease status post CABG, congestive heart failure, sarcoidosis presented in the ER with complaint of chest pressure tightness since morning with some shortness of breath. Patient reports it feels as she has an elephant sitting on her chest currently rates 5/10 intensity with no significant aggravating or relieving factors. Reports noticed earlier having low heart rate in 40s but usually it is in 60s and 70s. Also reports feeling dizzy and lightheaded for the last couple of weeks with generalized weakness especially in lower extremities where she gets unstable on her feet. No fever chills or sick contact reported. (SKY SUAZO) Allergies/Adverse Reactions: meperidine HCl [From Demerol] Allergy (Mild, Verified 12/02/23 16:23) Hives Penicillins Allergy (Mild, Verified 12/02/23 16:23) Rash propoxyphene napsylate [From Darvocet-N 100] Allergy (Mild, Verified 12/02/23 16:23) Hives levofloxacin [From Levaquin] Allergy (Verified 12/02/23 16:23) IMMUNE TO IT ondansetron HCl [From Zofran] Adverse Reaction (Intermediate, Verified 12/02/23 16:23) Nausea and Vomiting morphine Adverse Reaction (Verified 12/02/23 16:23) sulfamethoxazole [From Bactrim] Adverse Reaction (Verified 12/02/23 16:23) trimethoprim [From Bactrim] Adverse Reaction (Verified 12/02/23 16:23) Home Medications: Promethazine HCl 25 mg PO Q6HPRN PRN 03/22/14 [History] Pregabalin [Lyrica 100Mg] 150 mg PO BID 12/23/15 [History] Atorvastatin Calcium [Lipitor] 80 mg PO HS 01/09/17 [History] SUMAtriptan succinate [Imitrex] 100 mg PO DAILY PRN PRN 04/21/17 [History] Desvenlafaxine Succinate [Pristiq] 100 mg PO HS 02/02/18 [History] Isosorbide Mononitrate 30 mg [Imdur 30 MG] 30 mg PO HS 02/02/18 [History] Ranolazine 500 MG [Ranexa 500 MG] 500 mg PO BID 02/02/18 [History] Hydroxychloroquine Sulfate 200 mg PO DAILY 09/20/18 [History] Metoprolol Tartrate 25 mg [Lopressor 25MG Tab] 25 mg PO DAILY 09/20/18 [History] Vit B12/Intrinsic Fact/Folate [Intrinsi [id number] Tablet] 5,000 mg PO DAILY 09/20/18 [History] Vit B6/Me-Thfolate/Me-B12/Ala [Nufola Capsule] 1,000 mg PO DAILY 09/20/18 [History] Travel Risk - International Travel Have you traveled outside of the country in past 3 weeks: No - Emerging Infectious Disease Are you exhibiting symptoms associated with any current EIDs: Yes Symptoms: Shortness of Breath - Review of Systems Constitutional: Fatigue, Weakness Eyes: No Symptoms Ears, Nose, & Throat: No Symptoms Respiratory: Dyspnea Cardiac: Chest Pain Abdominal/Gastrointestinal: No Symptoms Genitourinary Symptoms: No Symptoms Musculoskeletal: No Symptoms Skin: No Symptoms Neurological: Dizziness, Gait Changes Psychological: No Symptoms Hematologic/Lymphatic: No Symptoms Immunological/Allergic: No Symptoms - Past Medical History Pertinent Past Medical History: Yes Neurological History: No Pertinent History ENT History: No Pertinent History Cardiac History: Congestive Heart Failure, Coronary Artery Disease, Myocardial Infarction ([place]) Respiratory History: CHF, Pulmonary Embolism, Other Endocrine Medical History: Diabetes Type I Musculoskeletal History: Rheumatoid Arthritis GI Medical History: No Pertinent History History: No Pertinent History Psycho-Social History: Anxiety Female Reproductive Disorders: No Pertinent History Other Medical History: Sarcoidosis, slipped disc. cvl port - Past Surgical History Past Surgical History: Yes Neuro Surgical History: No Pertinent History Cardiac: CABG, Cardiac Catheterization Respiratory: Other Gastrointestinal: Cholecystectomy, Other Genitourinary: No Pertinent History Musculoskeletal: No Pertinent History Female Surgical History: Hysterectomy, Section Other Surgical History: LYMP NODE AND LUNG BIOPSY,PORT, liver biopsy, nose repair, diverticulosis. cabg- double bypass. port placed x2 left chest Significant Family History: no pertinent family hx - Female History Hx Last Menstrual Period: hyster Hx Now: (unkn) - Social History Smoking Status: Former smoker How long have you smoked: 1 Exposure to second hand smoke: No Alcohol Use: None Drug Use: none Patient Lives Alone: No - Physical Exam General Appearance: no apparent distress Ears, Nose, Throat Exam: hearing grossly normal Neck Exam: normal inspection, non-tender, supple, full range of motion Respiratory Exam: normal breath sounds, lungs clear Cardiovascular/Chest Exam: normal heart sounds, bradycardia Abdominal/Gastrointestinal Exam: soft, normal bowel sounds, No tenderness Extremity Exam: non-tender, normal range of motion Neurologic Exam: alert, oriented x 3, cooperative, agricultural service worker II-XII nml as tested, normal mood/affect, nml cerebellar function, sensation nml, No motor deficits Skin Exam: normal color SpO2 Interpretation: normal SpO2: 99 O2 Delivery: Room Air - Nursing Vital Signs Nursing Vital Signs: Initial Vital Signs Temperature 97.2 F 12/02/23 16:38 Pulse Rate 44 L 12/02/23 16:38 Respiratory Rate 18 12/02/23 16:38 Blood Pressure 100/41 12/02/23 16:38 O2 Sat by Pulse Oximetry 98 12/02/23 16:38 Pain Scale Pain Intensity 4 - Course EKG Interpreted by Me: RATE (42), Sinus Rhythm, NORMAL AXIS, NORMAL INTERVALS, NORMAL QRS, Right Bundle Branch Block Ordered Tests: Active Orders 24 hr Category Date Time Status Pharmacy Operations Specialist STAT Care 12/02/23 16:52 Active EKG-ER Only STAT Care 12/02/23 16:51 Active IV Insertion STAT Care 12/02/23 16:51 Completed Pulse Oximetry (ED) STAT Care 12/02/23 16:51 Active ANKLE (3 VIEWS) Stat Exams 12/02/23 17:09 Completed CHEST 1 VIEW (PORTABLE) Stat Exams 12/02/23 16:51 Completed HEAD WITHOUT CONTRAST [CT] Stat Exams 12/02/23 17:01 Completed CBC W DIFF Stat Lab 12/02/23 16:51 Completed CK-Creatinine Phosphokinase Stat Lab 12/02/23 16:45 Completed CMP Stat Lab 12/02/23 16:45 Completed ESR [Erythrocyte Sedimentation Rate] Stat Lab 12/02/23 16:45 Completed MAGNESIUM Stat Lab 12/02/23 16:45 Completed NT PRO BNPII Stat Lab 12/02/23 16:45 Completed TROPONIN Q4H Lab 12/02/23 16:45 Completed TROPONIN Q4H Lab 12/02/23 20:45 Completed TROPONIN Q4H Lab 12/03/23 01:00 Completed TSH [TSH, 3RD Generation] Stat Lab 12/02/23 16:45 Completed Medication Summary Discontinued Medications Generic Name Dose Route Start Last Admin Trade Name Freq PRN Reason Stop Dose Admin Aspirin 324 mg 12/02/23 16:51 12/02/23 17:17 Aspirin 81 Mg Tab.Chew PO 12/02/23 16:52 324 mg STAT ONE Administration Aspirin Confirm 12/02/23 17:16 Aspirin 81 Mg Tab.Chew Administered 12/02/23 17:17 Dose 324 mg .ROUTE .STK-MED ONE Desvenlafaxine Succinate 100 mg 12/03/23 03:50 12/03/23 03:50 Desvenlafaxine Succinate 50 Mg Tab.Er.24h PO 12/03/23 03:51 100 mg STAT ONE Administration Gabapentin Confirm 12/03/23 03:40 Gabapentin 400 Mg Capsule Administered 12/03/23 03:41 Dose 400 mg .ROUTE .STK-MED ONE Gabapentin 400 mg 12/03/23 03:49 12/03/23 03:50 Gabapentin 400 Mg Capsule PO 12/03/23 03:50 400 mg STAT ONE Administration Oxycodone/Acetaminophen Confirm 12/03/23 03:22 Oxycodone / Apap 10/325 Mg 1 Tablet Administered 12/03/23 03:23 Dose 1 tab .ROUTE .STK-MED ONE Oxycodone/Acetaminophen 1 tab 12/03/23 03:23 12/03/23 03:23 Oxycodone / Apap 10/325 Mg 1 Tablet PO 12/03/23 03:24 1 tab STAT STA Administration Oxycodone/Acetaminophen 1 tab 12/03/23 08:39 12/03/23 08:49 Oxycodone / Apap 10/325 Mg 1 Tablet PO 12/03/23 08:40 1 tab STAT STA Administration Oxycodone/Acetaminophen Confirm 12/03/23 08:48 Oxycodone / Apap 10/325 Mg 1 Tablet Administered 12/03/23 08:49 Dose 1 tab .ROUTE .STK-MED ONE Lab/Rad Data: Laboratory Result Diagrams 12/02/23 16:51 12/02/23 16:45 Laboratory Results 12/03/23 12/02/23 12/02/23 Range/Units 01:00 20:45 16:51 WBC 6.1 (4.0-10.5) x10^3/uL RBC 3.61 L (4.1-5.4) x10^6/uL Hgb 10.2 L (12.0-16.0) g/dL Hct 31.5 L (35-47) % MCV 87.3 (78-100) fL MCH 28.3 (26-32) pg MCHC 32.4 (32-36) g/dL RDW 14.0 (11.5-14.0) % Plt Count 107 L (150-450) x10^3/uL MPV 12.5 H (7.5-11.0) fL Gran % 57.8 (36.0-66.0) % Immature Gran % (Auto) 0.5 H (0.00-0.4) % Nucleat RBC Rel Count 0.0 (0.00-0.1) % Eos # (Auto) 0 (0-0.5) x10^3/uL Immature Gran # (Auto) 0.03 (0.00-0.03) x10^3u/L Absolute Lymphs (auto) 1.80 (1.0-4.6) x10^3/uL Absolute Monos (auto) 0.73 (0.0-1.3) x10^3/uL Absolute Nucleated RBC 0.00 (0.00-0.01) x10^3u/L Lymphocytes % 29.5 (24.0-44.0) % Monocytes % 11.9 (0.0-12.0) % Eosinophils % 0.0 (0.00-5.0) % Basophils % 0.3 (0.0-0.4) % Absolute Granulocytes 3.53 (1.4-6.9) x10^3/uL Basophils # 0.02 (0-0.4) x10^3/uL ESR (0-20) mm/hr Sodium (135-145) mmol/L Potassium (3.5-5.1) mmol/L Chloride (98-107) mmol/L Carbon Dioxide (22-30) mmol/L Anion Gap (5-15) MEQ/L BUN (7-17) mg/dL Creatinine (0.52-1.04) mg/dL Estimated GFR ML/MIN Glucose (74-106) mg/dL Calcium (8.4-10.2) mg/dL Magnesium (1.6-2.3) mg/dL Total Bilirubin (0.2-1.3) mg/dL AST (14-36) U/L ALT (0-35) U/L Alkaline Phosphatase (38-126) U/L Creatine Kinase (30-135) U/L Troponin I 0.051 H* 0.060 H* (0.000-0.033) ng/mL NT-Pro-B Natriuret Pep (<300) pg/mL Serum Total Protein (6.3-8.2) g/dL Albumin (3.5-5.0) g/dL TSH 3rd Generation (0.470-4.680) mIU/L 12/02/23 12/02/23 12/02/23 Range/Units 16:45 16:45 16:45 WBC (4.0-10.5) x10^3/uL RBC (4.1-5.4) x10^6/uL Hgb (12.0-16.0) g/dL Hct (35-47) % MCV (78-100) fL MCH (26-32) pg MCHC (32-36) g/dL RDW (11.5-14.0) % Plt Count (150-450) x10^3/uL MPV (7.5-11.0) fL Gran % (36.0-66.0) % Immature Gran % (Auto) (0.00-0.4) % Nucleat RBC Rel Count (0.00-0.1) % Eos # (Auto) (0-0.5) x10^3/uL Immature Gran # (Auto) (0.00-0.03) x10^3u/L Absolute Lymphs (auto) (1.0-4.6) x10^3/uL Absolute Monos (auto) (0.0-1.3) x10^3/uL Absolute Nucleated RBC (0.00-0.01) x10^3u/L Lymphocytes % (24.0-44.0) % Monocytes % (0.0-12.0) % Eosinophils % (0.00-5.0) % Basophils % (0.0-0.4) % Absolute Granulocytes (1.4-6.9) x10^3/uL Basophils # (0-0.4) x10^3/uL ESR 6 (0-20) mm/hr Sodium (135-145) mmol/L Potassium (3.5-5.1) mmol/L Chloride (98-107) mmol/L Carbon Dioxide (22-30) mmol/L Anion Gap (5-15) MEQ/L BUN (7-17) mg/dL Creatinine (0.52-1.04) mg/dL Estimated GFR ML/MIN Glucose (74-106) mg/dL Calcium (8.4-10.2) mg/dL Magnesium (1.6-2.3) mg/dL Total Bilirubin (0.2-1.3) mg/dL AST (14-36) U/L ALT (0-35) U/L Alkaline Phosphatase (38-126) U/L Creatine Kinase (30-135) U/L Troponin I 0.072 H* (0.000-0.033) ng/mL NT-Pro-B Natriuret Pep (<300) pg/mL Serum Total Protein (6.3-8.2) g/dL Albumin (3.5-5.0) g/dL TSH 3rd Generation 1.140 (0.470-4.680) mIU/L 12/02/23 Range/Units 16:45 WBC (4.0-10.5) x10^3/uL RBC (4.1-5.4) x10^6/uL Hgb (12.0-16.0) g/dL Hct (35-47) % MCV (78-100) fL MCH (26-32) pg MCHC (32-36) g/dL RDW (11.5-14.0) % Plt Count (150-450) x10^3/uL MPV (7.5-11.0) fL Gran % (36.0-66.0) % Immature Gran % (Auto) (0.00-0.4) % Nucleat RBC Rel Count (0.00-0.1) % Eos # (Auto) (0-0.5) x10^3/uL Immature Gran # (Auto) (0.00-0.03) x10^3u/L Absolute Lymphs (auto) (1.0-4.6) x10^3/uL Absolute Monos (auto) (0.0-1.3) x10^3/uL Absolute Nucleated RBC (0.00-0.01) x10^3u/L Lymphocytes % (24.0-44.0) % Monocytes % (0.0-12.0) % Eosinophils % (0.00-5.0) % Basophils % (0.0-0.4) % Absolute Granulocytes (1.4-6.9) x10^3/uL Basophils # (0-0.4) x10^3/uL ESR (0-20) mm/hr Sodium 139 (135-145) mmol/L Potassium 4.3 (3.5-5.1) mmol/L Chloride 108 H (98-107) mmol/L Carbon Dioxide 22 (22-30) mmol/L Anion Gap 13.6 (5-15) MEQ/L BUN 24 H (7-17) mg/dL Creatinine 1.44 H (0.52-1.04) mg/dL Estimated GFR 47.2 ML/MIN Glucose 146 H (74-106) mg/dL Calcium 9.0 (8.4-10.2) mg/dL Magnesium 1.9 (1.6-2.3) mg/dL Total Bilirubin 2.00 H (0.2-1.3) mg/dL AST 147 H (14-36) U/L ALT 162 H (0-35) U/L Alkaline Phosphatase 380 H (38-126) U/L Creatine Kinase 218 H (30-135) U/L Troponin I (0.000-0.033) ng/mL NT-Pro-B Natriuret Pep 6070 (<300) pg/mL Serum Total Protein 6.7 (6.3-8.2) g/dL Albumin 3.8 (3.5-5.0) g/dL TSH 3rd Generation (0.470-4.680) mIU/L - Progress Progress: re-examined Air Movement: good Blood Culture(s) Obtained: No Antibiotics given: No Counseled pt/family regarding: lab results, diagnosis, need for follow-up, rad results - Progress Progress Note: 12/02/23 18:25 38 years old is evaluated for chest pain, bradycardia with dizziness and generalized weakness/tremors and some gait issues. Her neurosymptoms has been going on for last few days to couple of weeks. Chest pain started today. EKG showed sinus bradycardia with no ST elevations. She is given aspirin. She is feeling better on reevaluation. Initial troponins are mildly elevated 0.073 with normal white count and chemistries consistent with CKD, elevated transaminases and total bili of 2.0. Patient does not have any abdominal tenderness and per patient she has CKD and some liver issues which she is going to have some workup done at [facility]. Chest x-ray negative for any acute cardiopulmonary findings reviewed by me followed by official read. Patient also twisted her right ankle and has swelling, obtain x-rays which are negative for fracture dislocation reviewed by me, official report is pending. Placed in [place] wrap. With her multiple medical issues, bradycardia which probably is the reason for her generalized weakness and feeling dizzy and lightheaded, I believe patient would benefit with facility having cardiology services. She does not want to go to [facility] but [facility]. We have called [facility] but no beds are available tonight. I have called [facility], d/w , reviewed history, workup and agreed with transfer. I have discussed the results of workup, plan of transfer with patient and mom which they understand and agree. Taking into account patient's history, multiple issues at today's visit, review of workup with interpretation I believe patient is a high complexity case. (SKY SUAZO) 12/03/23 08:54 Patient is currently hemodynamically stable. She is stable for transfer. We are waiting for transportation. (JODEE PAREKH) Medical Desision Making - Independent Historian Additional History obtained from: Mother - Discussion of managment Care discussed with:: hospitalist () Reviewed:: Test results Agreed on:: Treatment plan Will see patient: in hospital - Diagnostic Testing Diagnostic test were ordered, analyzed, and reviewed by me: Yes Radiological Interpretation: Interpreted by me, Reviewed by me - Risk of complications The pt has a high risk of morbidity or mortality based on: Decision regarding hospitilization or escalation of hosp level of care - Departure Departure Disposition: Transfer Critical Care Time: No - Departure Clinical Impression: Chest pain, Symptomatic bradycardia, General weakness, Ankle sprain Condition: Stable Referrals: SUNG CLEMENTE, REHABILITATION THERAPIST [Primary Care Provider] - Follow up/PCP as directed
[2023-12-03] MEDS ORDERED: OXYCODONE-ACETAMINOPHEN 10-325 ONE ×2 (03:22→08:48)
[2023-12-03] MEDS: OXYCODONE-ACETAMINOPHEN 10-325 PO STA ×2 (03:23→08:49)
[2023-12-03] MEDS ORDERED: Neurontin ONE (03:40)
[2023-12-03] MEDS: PRISTIQ ER PO ONE (03:50)
[2023-12-03] MEDS: Neurontin PO ONE (03:50)
--- NOTE | 2023-12-03 08:42 | XRAY ---
Indication: Pain following fall. Comparison: None 3 view right ankle demonstrates soft tissue swelling. No other bony, articular, or soft tissue abnormalities.
--- NOTE | 2023-12-03 08:42 | XRAY ---
Indication: General weakness. Short of breath. Stroke. Multiple contiguous axial images obtained through the head without contrast. Comparison: None Normal appearing brain parenchyma, ventricles, and bony calvarium for patient's age. Mild mucosal thickening left sphenoid and lesser degree both ethmoid sinuses. Mastoid air cells are clear. Impression: Normal CT head without contrast exam. Incidental paranasal sinus disease.
[2023-12-03 09:58] VITALS: BP 121/64; PULSE 44; RESP 21; O2SAT 97
== END 2023-12-03 10:15 | disposition short-term general hospital (02) ==
LOC: ED 16:21
DX: R07.9 Chest pain, unspecified (principal); R06.02 Shortness of breath; R53.81 Other malaise; R60.0 Localized edema; M25.571 Pain in right ankle and joints of right foot; W19.XXXA Unspecified fall, initial encounter; I25.10 Atherosclerotic heart disease of native coronary artery without angina pectoris; Z95.0 Presence of cardiac pacemaker; I50.9 Heart failure, unspecified; R42 Dizziness and giddiness; R00.1 Bradycardia, unspecified; Z79.899 Other long term (current) drug therapy
CPT/HCPCS: 36000; 36415; 70450; 71045; 73610; 80053; 82550; 83735; 83880; 84443; 84484; 85025; 85652; 93005; 93041; 94760; 99285; A9270-GY

== ENCOUNTER 2024-09-12 06:02 | Day surgery (SDC) | payer MEDICARE ==
[2024-09-12 06:27] VITALS: RESP 18
[2024-09-12] MEDS ORDERED: CLINDAMYCIN-D5W 900 MG/50 ML*** 900 MG/50 ML BAG IV ONE (06:42)
[2024-09-12] MEDS ORDERED: Sodium Chloride 0.9% 1000 ML 1,000 ML ONE (06:42)
[2024-09-12] MEDS ORDERED: Marcaine Mpf 0.5% Vial 30 Ml ONE (06:46)
[2024-09-12] MEDS ORDERED: EXPAREL 133 MG/10 ML VIAL IJ ONE (06:46)
[2024-09-12] MEDS ORDERED: SUBLIMAZE 100 MCG/2 ML ONE (06:48)
[2024-09-12] MEDS ORDERED: Versed 2 MG/2 ML Injection ONE (06:48)
[2024-09-12] MEDS: Sodium Chloride 0.9% 1000 ML 1,000 ML IV SCH (07:04)
[2024-09-12] MEDS: CLINDAMYCIN-D5W 900 MG/50 ML*** 900 MG/50 ML BAG IV SCH (07:04)
[2024-09-12 07:06] LABS: Hematocrit 35.1 % (34.1-44.9); Hemoglobin 11.6 g/dL (11.2-15.7); Mean Cell Volume 87.1 fL (79.4-94.8); Mean Corpuscular Hemoglobin 28.8 pg (25.6-32.2); Mean Platelet Volume 10.1 fL (9.4-12.3); Platelet Count 172 x10^3/uL (182-369); Red Blood Count 4.03 x10^6/uL (3.93-5.22); Red Cell Distribution Width 12.8 % (11.7-14.4); White Blood Count 5.8 x10^3/uL (3.98-10.04)
[2024-09-12 07:21] LABS: ALBUMIN 4.4 g/dL (3.5-5.0); ANION GAP 10.7 MEQ/L (5-15); BILIRUBIN,TOTAL 1.1 mg/dL (0.2-1.3); Calcium 9.3 mg/dL (8.4-10.2); Creatinine 1 1.39 mg/dL (0.52-1.04); EST GLOMERULAR FILTRATION RATE 48.9 ML/MIN; Potassium 4.5 mmol/L (3.5-5.1); Total Protein 7.2 g/dL (6.3-8.2)
[2024-09-12] MEDS ORDERED: TORAdol 30 mg Injection ONE (07:54)
[2024-09-12] MEDS ORDERED: Xylocaine-Mpf 2% 5 Ml Vial ONE (07:54)
[2024-09-12] MEDS ORDERED: BRIDION 200MG/2ML IV ONE (07:54)
[2024-09-12] MEDS ORDERED: ROCURONIUM BROMIDE IV ONE (07:54)
[2024-09-12] MEDS ORDERED: propofoL IV ONE (07:54)
[2024-09-12] MEDS ORDERED: Zofran 4 MG/2 ML VIAL ONE (07:54)
[2024-09-12] MEDS ORDERED: Lactated Ringers 1,000 ML IV ONE (09:19)
--- NOTE | 2024-09-12 10:40 | XRAY ---
Indication: Left ankle ORIF surgery medial malleolus, calcaneal bone spur resection, and possible debridement Achilles. Intraoperative fluoroscopy provided for 1 minute 43 seconds. 23 digital spot images submitted for interpretation ultimate demonstrates medial fixation plate and transverse screws fixating medial malleolus fracture in good apposition/alignment. Also partial excision posterior calcaneus. Correlate with intraoperative findings/report.
[2024-09-12] MEDS ORDERED: Hydromorphone 1 mg/ml Injection ONE (11:50)
[2024-09-12 12:34] VITALS: TEMP 97.5; O2SAT 97
[2024-09-12 12:49] VITALS: BP 138/69; PULSE 66
--- NOTE | 2024-09-12 14:17 | XRAY ---
One minute and 43 seconds of fluoroscopy was used in surgery for a left ankle ORIF surgery medial malleolus, calcaneal bone spur resection, and possible debridement Achilles.
--- NOTE | 2024-09-13 13:38 | OP ---
SURGERY DATE/TIME: 09/12/2024 [id number] PREOPERATIVE DIAGNOSES: 1) Left insertional Achilles tendinitis. 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 4) Left ankle pain. 5) Left heel pain. 6) Difficulty with ambulation. 7) Diabetes mellitus type 1 with peripheral neuropathy. 8) Chronic kidney disease type 3. POSTOPERATIVE DIAGNOSES: 1) Left insertional Achilles tendinitis. 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 4) Left ankle pain. 5) Left heel pain. 6) Difficulty with ambulation. 7) Diabetes mellitus type 1 with peripheral neuropathy. 8) Chronic kidney disease type 3. PROCEDURE: 1) Partial calcanectomy. 2) Detachment of Achilles tendon with debridement and reattachment. 3) Open reduction and internal fixation of medial malleolar nonunion. 4) Calcaneal autograft. SURGEON: Truman Burgos DPM WILDLIFE PHOTOGRAPHER: Jayjay Mckenzie NP ANESTHESIA: General. HEMOSTASIS: Thigh tourniquet set to 320 mmHg for a total of 67 total tourniquet minutes. ESTIMATED BLOOD LOSS: 10 mL. MATERIALS: 1) Two 2.9 JuggerKnots with broadband. 2) 4.5 Quattro links x2 with a 4 x 3 Kevyn Tapestry. 3) A 3-hole medial malleolar hook plate with a calcaneal autograft. 4) 4-0 Monocryl and 3-0 nylon. INJECTABLES: See anesthesia report for details. INDICATIONS: The patient is a very pleasant 39-year-old female well known to my service for a medial malleolar fracture that she sustained a long time ago. However, this has developed nonunion secondary to her diabetes, despite it being well controlled. Patient had ambulated on this ankle and suffered a nonunion resulting in a significant amount of pain. As a result, she was compensating and her Jj's deformity began becoming painful. From that standpoint, patient's pain has progressed to the point where she has elected to go forward with surgical intervention. An MRI was obtained of the right ankle demonstrating a significant amount of insertional inflammation within the Achilles tendon as well as bone marrow edema. From that standpoint, decision was made to proceed with addressing the Jj's deformity and the Achilles tendon as well as the medial malleolar nonunion. Patient has been made aware of all risks, complications and benefits of surgical intervention at this time, including but not limited to infection, hematoma, seroma, possibility of delayed wound healing, non-wound healing, possible delayed bone healing, non-bone healing, possible need for revision surgery. Patient has been made aware of all these risks and complications and is willing to proceed. Plenty of time was left for the patient to ask questions, which were answered to her apparent satisfaction. It is at this time we decided to proceed. DESCRIPTION OF PROCEDURE AND FINDINGS: Patient was brought into the PACU prior to the procedure and provided a popliteal and saphenous block. Following the popliteal and saphenous block, patient was brought in the room and before being transferred to the table, placed under anesthesia as well as calf tourniquet was applied. Then the patient was flipped into a prone position. Once in a prone position, the left lower extremity was prepped and draped in the typical sterile fashion and lowered onto the surgical field. At this time, under fluoroscopic guidance, the posterior calcaneus was identified and a linear incision was made midline over the insertion of the Achilles tendon carrying this full-thickness down to the level of the paratenon. Once excised, the paratenon exposed the Achilles tendon which the midline was identified and incision was made down through the Achilles tendon which was then an inverted T at the posterior aspect of the calcaneus. Once this was performed, the tendon edges were then reflected, opening this up like a book and then cleaning out the diseased tendon. It is noted at this time that there was a significant amount of calcific and diseased tendon within the insertion. There was also a retrocalcaneal bursa which was identified and removed. At this time, a sagittal saw was then utilized to resect a portion of the bone at the posterior aspect of the calcaneus which was then smoothed down utilizing a bone rasp. Following this, copious amounts of sterile saline were utilized to flush the surgical site. The tendon was once again checked for any residual disease, which there was none found. Decision was made to proceed with two 2.9 JuggerKnots with a broadband into the proximal row of the insertion of the Achilles which was then retrograded out of the tendon and then 2 drill holes were made for two 4.5 Quattro links where an inverted row-type fixation was utilized for the suture to hold the Achilles tendon down to the bone. Once this was performed, the tendon was under a decent amount of tension and 2-0 Vicryl was then utilized to coapt the tendon centrally. Once this was performed, a Tapestry was then introduced given the patient's type 1 diabetes as well as chronic kidney disease in order to promote collagen regrowth in this area. The paratenon was then repaired utilizing 4-0 Monocryl. The 4-0 Monocryl was then once again used in a simple buried deep-type fashion to coapt the skin edges and then 3-0 nylon was utilized in a horizontal mattress-type fashion to coapt the skin. Once this was performed, a temporary dressing was placed and the patient was broken down and flipped into a supine position. The tourniquet was deflated. The leg was reprepped and draped in the typical sterile fashion. Once this occurred, an Esmarch was utilized once again to exsanguinate the leg. Following this, attention was directed to the medial malleolar fracture where a linear incision was made over the medial fracture and the anterior to mid distal tibia. Once this incision was made, the nonunion was identified. A blade was utilized to identify the nonunion and resect the fibrous nonunion from this site. Tourniquet was let down and drill holes were made into the medial malleolar fracture where healthy bleeding was identified. Fenestrations were made on both sides and then the calcaneal autograft was harvested from the lateral wall of the calcaneus utilizing sequentially bigger curettes in order to get approximately 1 mL of calcaneal autograft. Once this was performed, a medial malleolar hook plate was placed and checked on multiple views for positioning. Once the position was determined to be adequate, this was malleted into place so the tines of the hook plate were in the appropriate position and then fixated utilizing 2 cortical screws at its proximal extent while holding compression through the hook plate. From that standpoint, copious amounts of sterile saline were utilized to flush the surgical site. Then 4-0 was utilized to coapt the subcutaneous skin edges and then 3-0 nylon was utilized to coapt the skin in a horizontal mattress-type fashion. Patient was then provided a dressing consisting of Betadine, Adaptic, 4 x 4, Kerlix ABD and a well-padded posterior splint with sugar tong. Patient was then reversed from anesthesia and returned to the postoperative anesthesia care unit with vital signs stable and vascular status intact. Patient handled the anesthesia as well as the procedure without significant complication. Postoperative orders as indicated in the patient's discharge chart.
== END 2024-09-12 13:02 | disposition home or self-care (01) ==
LOC: SDC 06:02
PROVIDERS: ATTEND Podiatrist Foot & Ankle Surgery
DX: M76.62 Achilles tendinitis, left leg (principal); M92.62 Juvenile osteochondrosis of tarsus, left ankle; S82.52XA Displaced fracture of medial malleolus of left tibia, initial encounter for closed fracture; M25.572 Pain in left ankle and joints of left foot; R29.6 Repeated falls; E10.9 Type 1 diabetes mellitus without complications
CPT/HCPCS: 20902; 27650; 27766; 28122; 36415; 73610; 76000; 76937; 80053; 82947; 85027; C1713; C1763; J0666; J1171; J1885; J2250; J2405; J2704; J3010

== ENCOUNTER 2024-10-20 14:02 | Emergency (ER) | payer MEDICARE ==
--- NOTE | 2024-10-20 14:08 | ERPHSYRPT ---
- History of Present Illness Time Seen by Provider: 10/20/24 14:08 Source: patient Exam Limitations: no limitations Physician History: This is a 39-year-old white female patient who is diabetic and had a left foot surgery performed by Dr. Laughlin (podiatry) at the end of August 2024. It was approximately 5 weeks ago. Patient was having pain in her heel and was concerned that there may be some drainage, infection or the wound was dehiscing. She has not had a fever. She contacted Dr. Laughlin office. Dr. Laughlin is not in today. There was no one in the office however they did tell her to come to the emergency room to have the cast removed. Quality: painful Severity: mild Location: feet (Left foot, primarily heel) Associated Symptoms: denies symptoms Allergies/Adverse Reactions: meperidine HCl [From Demerol] Allergy (Mild, Verified 10/20/24 14:22) Hives Penicillins Allergy (Mild, Verified 10/20/24 14:22) Rash propoxyphene napsylate [From Darvocet-N 100] Allergy (Mild, Verified 10/20/24 14:22) Hives ondansetron HCl [From Zofran] Adverse Reaction (Intermediate, Verified 10/20/24 14:22) Nausea and Vomiting doxycycline Adverse Reaction (Verified 10/20/24 14:22) morphine Adverse Reaction (Verified 10/20/24 14:22) sulfamethoxazole [From Bactrim] Adverse Reaction (Verified 10/20/24 14:22) trimethoprim [From Bactrim] Adverse Reaction (Verified 10/20/24 14:22) Home Medications: Promethazine HCl 25 mg PO Q6HPRN PRN 03/22/14 [History] Atorvastatin Calcium [Lipitor] 80 mg PO HS 01/09/17 [History] SUMAtriptan succinate [Imitrex] 100 mg PO DAILY PRN PRN 04/21/17 [History] Isosorbide Mononitrate 30 mg [Imdur 30 MG] 30 mg PO HS 02/02/18 [History] Hydroxychloroquine Sulfate 200 mg PO DAILY 09/20/18 [History] Vit B12/Intrinsic Fact/Folate [Intrinsi F57-[id number] Tablet] 5,000 mg PO DAILY 09/20/18 [History] Vit B6/Me-Thfolate/Me-B12/Ala [Nufola Capsule] 1,000 mg PO DAILY 09/20/18 [Histo ry] Albuterol Sulfate [Albuterol Sulfate Hfa] 8.5 gm PO UD 08/25/24 [History] Atropine Sulfate/Pf [Atropine 1% Eye Drops] 1 each PO BID 08/25/24 [History] Brimonidine Tartrate/Timolol [Brimonidine-Timolol 0.2%-0.5%] 1 each TP BID 08/25/24 [History] Cholecalciferol (Vitamin D3) [Vitamin D3] 1,000 mcg PO DAILY 08/25/24 [History] Furosemide 20 mg [Lasix 20 mg] 20 mg PO UD PRN 08/25/24 [History] Gabapentin 400 mg PO TID 08/25/24 [History] Hydroxyzine HCl 25 mg [Atarax 25 mg] 25 mg PO UD 08/25/24 [History] Insulin Glargine,Hum.rec.anlog [Lantus] 100 unit SQ UD 08/25/24 [History] Insulin Lispro [Insulin Lispro Jason Kwikpen] 100 unit SQ UD 08/25/24 [History] Lumateperone Tosylate [Caplyta] 42 mg PO DAILY 08/25/24 [History] Naloxone HCl [Kloxxado] 8 mg PO UD PRN 08/25/24 [History] Prednisolone Acetate/Pf [Prednisolone Acet 1% Eye Drop] 1 each DROPS BID 08/25/24 [History] Tapentadol HCl [Nucynta] 50 mg PO DAILY 08/25/24 [History] Vilazodone HCl 40 mg PO DAILY 08/25/24 [History] amantadine HCL [Amantadine] 100 mg PO DAILY 08/25/24 [History] glucagon HCL [Glucagon Emergency Kit] 1 mg IJ UD 08/25/24 [History] Hx Tetanus, Diphtheria Vaccination/Date Given: Yes Hx Influenza Vaccination/Date Given: No Hx Pneumococcal Vaccination/Date Given: No Travel Risk - International Travel Have you traveled outside of the country in past 3 weeks: No - Emerging Infectious Disease Are you exhibiting symptoms associated with any current EIDs: Yes Symptoms: Shortness of Breath - Review of Systems Constitutional: No Symptoms Eyes: No Symptoms Ears, Nose, & Throat: No Symptoms Respiratory: No Symptoms Cardiac: No Symptoms Abdominal/Gastrointestinal: No Symptoms Genitourinary Symptoms: No Symptoms Musculoskeletal: Other (Tender heel in a cast) Neurological: No Symptoms Psychological: No Symptoms Endocrine: No Symptoms Hematologic/Lymphatic: No Symptoms Immunological/Allergic: No Symptoms All Other Systems: Reviewed and Negative - Past Medical History Pertinent Past Medical History: Yes Neurological History: No Pertinent History ENT History: No Pertinent History Cardiac History: Congestive Heart Failure, Coronary Artery Disease, Myocardial Infarction ([place]) Respiratory History: CHF, Pulmonary Embolism, Other Endocrine Medical History: Diabetes Type I Musculoskeletal History: Rheumatoid Arthritis GI Medical History: No Pertinent History History: No Pertinent History, Renal Disease Psycho-Social History: Anxiety Female Reproductive Disorders: No Pertinent History Other Medical History: Sarcoidosis, slipped disc ,blind right eye. cvl port, stage 3 kidney disease - Past Surgical History Past Surgical History: Yes Neuro Surgical History: No Pertinent History Cardiac: CABG, Cardiac Catheterization Respiratory: Other Gastrointestinal: Cholecystectomy, Other Genitourinary: No Pertinent History Musculoskeletal: No Pertinent History Female Surgical History: Hysterectomy, Section Other Surgical History: LYMP NODE AND LUNG BIOPSY,PORT, liver biopsy, nose repair, diverticulosis. cabg- double bypass. port placed x2 left chest Significant Family History: no pertinent family hx - Female History Hx Last Menstrual Period: 04/05/14 - Social History Smoking Status: Former smoker - Social Determinants of Health Do you worry about a steady place to live?: No In the past 12 months,have you had to go without utilities?: No Transportation Issues: No Has anyone in your support network made you feel unsafe?: No Have you or anyone in your house had to go w/o enough food: No - Nursing Vital Signs Nursing Vital Signs: Initial Vital Signs Temperature 98.1 F 10/20/24 14:10 Pulse Rate 59 L 10/20/24 14:10 Respiratory Rate 18 10/20/24 14:10 Blood Pressure 106/81 10/20/24 14:10 O2 Sat by Pulse Oximetry 98 10/20/24 14:10 Pain Scale Pain Intensity 4 - Physical Exam General Appearance: no apparent distress, alert, anxiety Eye Exam: PERRL/EOMI, eyes nml inspection Ears, Nose, Throat Exam: normal ENT inspection, moist mucous membranes Neck Exam: normal inspection, non-tender, supple, full range of motion Respiratory Exam: normal breath sounds, lungs clear, airway intact, No chest tenderness, No respiratory distress Cardiovascular Exam: regular rate/rhythm, normal heart sounds, normal peripheral pulses Gastrointestinal/Abdomen Exam: soft, normal bowel sounds, No tenderness Pelvic Exam: not done Rectal Exam: not done Extremity Exam: other (Patient's left lower extremity is then a cast from the proximal toes to the mid calf region) Neurologic Exam: alert, oriented x 3, cooperative, correctional officer II-XII nml as tested, normal mood/affect, nml cerebellar function Skin Exam: other (Patient has good capillary refill of the toes of the left foot) O2 Delivery: Room Air Procedures - Additional Procedures Progress: Procedure note: After obtaining permission and instructions from the receiving coordinator, Dr. Laughlin, we used a orthopedic rotating blade saw to cut through the cast and removed it without difficulty or injury to the patient. - Course Nursing assessment & vital signs reviewed: Yes Ordered Tests: Active Orders 24 hr Category Date Time Status Splint STAT Care 10/20/24 17:00 Active CULTURE,WOUND Stat Lab 10/20/24 17:10 Ordered Medication Summary Discontinued Medications Generic Name Dose Route Start Last Admin Trade Name Cristobal PRN Reason Stop Dose Admin Levofloxacin 500 mg 10/20/24 16:58 10/20/24 17:14 Levofloxacin 500 Mg Tablet PO 10/20/24 16:59 500 mg STAT ONE Administration Levofloxacin Confirm 10/20/24 17:11 Levofloxacin 500 Mg Tablet Administered 10/20/24 17:12 Dose 500 mg .ROUTE .STK-MED ONE - Progress Progress: improved, re-examined Progress Note: 10/20/24 17:22 Medical decision making in the assignment of low to moderate complexity of this patient's medical issue today is based on review of the patient's past medical history, review the patient's medication list, reviewed patient drug allergy list, history present illness and physical findings on examination. After my discussion with the patient, I contacted her receiving coordinator, Dr. Laughlin and we discussed what he would like to have done here in the emergency department. He stated that he would like the cast removed. He would then like to have photos of the wound site sent to him via texting. I asked the patient if this was okay and she gave me permission to take photos and send it to Dr. Laughlin. Differential diagnosis includes but is not limited to wound infection, wound dehiscence After the photos were sent to Dr. Laughlin, he wanted the wound site cultured and then bacitracin ointment applied followed by Telfa, Kerlix and Sidney wrap. Patient will then be placed in a cam boot and be nonweightbearing. She is to follow-up in the walk-in clinic on 10/23/2024 10/20/24 17:24 Dr. Laughlin also wanted her on Levaquin. There was a listing of Levaquin as her allergy. However, the patient specifically stated to me and the nurse that she is not allergic to Levaquin it just does not typically work for her. However, she states that she would take the medicine as directed by Dr. Laughlin. Counseled pt/family regarding: diagnosis, need for follow-up Medical Desision Making - Diagnostic Testing Diagnostic test were ordered, analyzed, and reviewed by me: No - Risk of complications The pt has a mod risk of morbidity or mortality based on: Need for prescription drug management - Departure Departure Disposition: Home Clinical Impression: Encounter for cast removal, Visit for wound check Condition: Stable Critical Care Time: No Referrals: SUNG CLEMENTE NP [Primary Care Provider] - Follow up/PCP as directed Additional Instructions: Nonweightbearing. Wear the cam boot as instructed. Follow-up at the walk-in clinic at 8 AM on 10/23/2024. Take the Levaquin prescription and your other medication as prescribed. Prescriptions: Levofloxacin [Levaquin 500 MG Tablet] 500 mg PO DAILY #7 tablet
[2024-10-20 14:23] VITALS: PULSE 59; RESP 18; TEMP 98.1
[2024-10-20 16:16] VITALS: BP 117/82; O2SAT 97
[2024-10-20] MEDS ORDERED: Levofloxacin 500 MG Tablet ONE (17:11)
[2024-10-20] MEDS: Levofloxacin 500 MG Tablet PO ONE (17:14)
[2024-10-20] MEDS ORDERED: BACIGUENT PACKET ONE (17:19)
[2024-10-20] MEDS: BACIGUENT PACKET TP ONE (17:21)
[2024-10-20] MEDS ORDERED: D50W 50 ml Abboject IV ONE (19:52)
== END 2024-10-20 17:44 | disposition home or self-care (01) ==
LOC: ED 14:02
DX: Z48.01 Encounter for change or removal of surgical wound dressing (principal); Z46.89 Encounter for fitting and adjustment of other specified devices; E10.22 Type 1 diabetes mellitus with diabetic chronic kidney disease; I50.9 Heart failure, unspecified; Z79.899 Other long term (current) drug therapy
CPT/HCPCS: 29700; 87070; 99283; L4386; A9270-GY

== ENCOUNTER 2024-11-07 06:57 | Day surgery (SDC) | payer MEDICARE ==
[2024-11-07 07:27] VITALS: RESP 18
[2024-11-07] MEDS: TYLENOL EXTRA STRENGTH 500 MG PO ONE (07:37)
[2024-11-07] MEDS: NEURONTIN PO ONE (07:37)
[2024-11-07] MEDS: CLINDAMYCIN-D5W 900 MG/50 ML*** 900 MG/50 ML BAG IV ONE (07:38)
[2024-11-07] MEDS: Sodium Chloride 0.9% 1000 ML 1,000 ML IV SCH (07:38)
[2024-11-07 08:02] LABS: Hematocrit 33.5 % (34.1-44.9); Hemoglobin 10.7 g/dL (11.2-15.7); Mean Cell Volume 88.2 fL (79.4-94.8); Mean Corpuscular Hemoglobin 28.2 pg (25.6-32.2); Mean Corpuscular Hgb Concent. 31.9 g/dL (32.2-35.5); Mean Platelet Volume 10.8 fL (9.4-12.3); Platelet Count 145 x10^3/uL (182-369); Red Cell Distribution Width 13.5 % (11.7-14.4); White Blood Count 6.4 x10^3/uL (3.98-10.04)
[2024-11-07 08:15] LABS: ALBUMIN 4.3 g/dL (3.5-5.0); ANION GAP 13.5 MEQ/L (5-15); BILIRUBIN,TOTAL 1.4 mg/dL (0.2-1.3); Calcium 9.4 mg/dL (8.4-10.2); Creatinine 1 1.24 mg/dL (0.52-1.04); EST GLOMERULAR FILTRATION RATE 56.1 ML/MIN; Potassium 4.1 mmol/L (3.5-5.1)
[2024-11-07] MEDS ORDERED: SUBLIMAZE 100 MCG/2 ML ONE ×2 (09:47→13:40)
[2024-11-07] MEDS ORDERED: Versed 2 MG/2 ML Injection ONE (09:47)
[2024-11-07] MEDS ORDERED: EXPAREL 133 MG/10 ML VIAL IJ ONE (09:50)
[2024-11-07] MEDS ORDERED: Marcaine Mpf 0.5% Vial 30 Ml ONE (09:50)
[2024-11-07] MEDS ORDERED: propofoL IV ONE (09:56)
[2024-11-07] MEDS ORDERED: DEXMEDETOMIDINE 80 MCG/20ML-NS IV ONE (09:56)
[2024-11-07] MEDS ORDERED: Xylocaine-Mpf 2% 5 Ml Vial ONE (09:56)
[2024-11-07] MEDS ORDERED: Zofran 4 MG/2 ML VIAL ONE (09:56)
[2024-11-07] MEDS ORDERED: ROCURONIUM BROMIDE IV ONE (09:56)
[2024-11-07] MEDS ORDERED: Transderm Scop 1.5MG Patch ONE (10:22)
[2024-11-07] MEDS: Transderm Scop 1.5MG Patch TOP ONE (10:23)
[2024-11-07] MEDS ORDERED: Pre-Attached Lta Kit TP ONE (10:28)
[2024-11-07] MEDS ORDERED: Thrombin-JMI 5000 UNITS TP ONE (11:27)
[2024-11-07] MEDS ORDERED: XYLOCAINE 1%/Epi 1:100000 MDV 20 ML ONE (11:27)
[2024-11-07] MEDS ORDERED: MINERAL OIL LIGHT 10 ML FOR SURGERY ONE (11:27)
[2024-11-07] MEDS ORDERED: BRIDION 200MG/2ML IV ONE (11:57)
[2024-11-07 14:20] VITALS: TEMP 97.2
[2024-11-07 14:25] VITALS: PULSE 55; O2SAT 100
[2024-11-07 14:26] VITALS: BP 135/60
--- NOTE | 2024-11-08 11:43 | OP ---
SURGERY DATE/TIME: 11/07/2024 [id number] PREOPERATIVE DIAGNOSES: 1) Diabetic peripheral neuropathy. 2) Type 1 diabetes mellitus. 3) Pressure ulceration to level of Achilles tendon left heel. 4) Diabetic foot ulcer. 5) Left foot pain. POSTOPERATIVE DIAGNOSES: 1) Diabetic peripheral neuropathy. 2) Type 1 diabetes mellitus. 3) Pressure ulceration to level of Achilles tendon left heel. 4) Diabetic foot ulcer. 5) Left foot pain. PROCEDURES: 1) Incision and drainage of left foot. 2) Debridement of Achilles tendon. 3) Synthetic skin graft application. 4) Split-thickness skin graft from right thigh to left heel. 5) Negative wound VAC pressure therapy to the left heel less than 100 sq cm. SURGEON: Truman Burgos DPM INSEAMER: PERCY Anguiano ANESTHESIA: General. POSITION: Prone. HEMOSTASIS: Pressure dressing. ESTIMATED BLOOD LOSS: Approximately 10 mL. MATERIALS: 4-0 Monocryl, 4-0 nylon, KCI medium wound VAC. INJECTABLES: See Anesthesia report for details. INDICATIONS: The patient is a very pleasant 39-year-old female known to my service for a medial malleolar nonunion to the left ankle as well as insertional Achilles tendonitis to the left heel that had been causing her a significant amount of pain. The patient underwent surgical intervention. However, secondary to her neuropathy, she picked up significant amount of pressure and had some necrosis of the skin on the posterior aspect of the heel. X-rays were taken demonstrating a good amount of soft tissue coverage, however, exposed Achilles tendon. From that standpoint, the patient is sensate and is not able to tolerate debridement to the heel in clinic. Therefore, we decided to go forward with aggressive debridement in a surgical suite and hopefully get this wound closed in one go. The patient has been made aware of all risks, complications, and benefits of surgical intervention including, but not limited to, infection, hematoma, seroma, possibility of delayed wound healing, non-wound healing, and possible need for further surgical intervention at a later date. No guarantees were provided as to the outcome of surgical intervention. Plenty of time was allowed for the patient to ask questions, which were answered to her apparent satisfaction. It is at this time we decided to proceed. DESCRIPTION OF PROCEDURE AND FINDINGS: The patient was brought in the operating room, placed under general anesthesia while on the cart. Once the patient was adequately sedated, the patient was rotated to the OR table in the prone position. Following this, the bilateral lower extremity was prepped and draped in a typical sterile fashion and lowered onto the surgical field. At this time, attention was directed to the left calcaneus where a significant eschar was identified over the posterior aspect of the heel. Removing small margins of this, there was healthy bleeding seen underneath with a small amount of the Achilles tendon exposed, however, a significant amount of the paratenon able to be repaired and healthy bleeding identified with decent granulation tissue and adipose tissue combined. From that standpoint, once the incision and drainage and the debridement of the tendon took place utilizing a 15-blade, rongeurs, and curettes, copious amounts of sterile saline were utilized under Pulsavac to flush the surgical site. An Acera Restrata graft was applied to the left heel wound and following this a split-thickness skin graft was harvested utilizing a 2-inch blade set to 0.018-inch with mineral oil and harvesting approximately 2 inches x 2 inches of this. Once this was performed, a 4-0 nylon was utilized to suture after this harvest was run through a 1 to 1.5 dermatome and mesher. Once this was performed, this was sutured to the wound base and any overhang was resected. Once this occurred, negative pressure wound VAC therapy was applied and the wound VAC was set to 125 mmHg. Once this was secured, a bridge was made to the lateral aspect of the leg to avoid any excessive pressure on the heel. Cast padding was applied to the patient's lower extremity as well as a multilayer compression dressing. The patient was then reversed from anesthesia and returned to the postoperative anesthesia care unit with vital signs stable and vascular status intact. The patient handled the anesthesia as well as the procedure without significant complication. Postoperative orders as indicated in the patient's discharge chart.
== END 2024-11-07 14:50 | disposition home or self-care (01) ==
LOC: SDC 06:57
PROVIDERS: ATTEND Podiatrist Foot & Ankle Surgery
DX: E10.42 Type 1 diabetes mellitus with diabetic polyneuropathy (principal); L89.604 Pressure ulcer of unspecified heel, stage 4; E10.621 Type 1 diabetes mellitus with foot ulcer; M79.672 Pain in left foot
CPT/HCPCS: 15100; 15271; 28003; 36415; 64447; 64450; 76937; 80053; 82947; 85027; 87070; 87075; 93005; 97605; A2007; J0666; J2250; J2405; J2704; J3010; A9270-GY